=== PATIENT | male | born 1955 | race Caucasian/White ===

== ENCOUNTER 2016-11-06 06:46 | Inpatient (IN) ==
[2016-11-06] MEDS ORDERED: ENOXAPARIN 150 MG/ML INJECTION SQ ONE (07:12)
[2016-11-06] MEDS ORDERED: METHYLPREDNISOLONE SOD SUCC 125mg/2ml INJECTION IVP ONE (07:12)
[2016-11-06] MEDS ORDERED: AZITHROMYCIN IV 500 MG in NS 250ml 250 ML IV ONE (07:12)
--- NOTE | 2016-11-06 07:18 | Emergency Department Report ---
SOB HPI - General Chief Complaint: Shortness of Breath/Dyspnea Stated Complaint: SOA with exertion Time Seen by Provider: 11/06/16 07:09 Source: patient, family, EMS, old records reviewed Mode of arrival: EMS Limitations: no limitations - History of Present Illness 60yo man presented to the ER by EMS for evaluation of dyspnea. Pt has had rapidly progressive, severe emphysema over the last 9 months; pt has frequent exacerbations. Today, pt awoke and was unable to move without severe dyspnea. Pt was given an albuterol tx at the scene with improvement, but could not tolerate walking from the chair to the transport bed. Was given a second neb en route with improvement in his sx. Takes his dulera daily, but does not have albuterol at home. Takes 30mg prednisone daily (10mg tid) and hydrocodone for pain. MD Complaint: shortness of breath Onset (ago): hour(s) Severity: severe Consistency/Duration: constant Relieving factors: oxygen, bronchodilators Exacerbating factors: lying flat, movement Known history of: COPD Treatment prior to arrival: oxygen, bronchodilator - Related Data Home oxygen amount: 3 liters Home Medications Medication Instructions Recorded Confirmed Hydrocodone/APAP 5/325 [[place] 1 - 2 tab PO Q3-6HR PRN 11/06/16 11/06/16 5/325] Mometasone/Formoterol 200/5 2 puff INH BID 11/06/16 11/06/16 [DULERA 200/5mcg INHALER] PredniSONE [Deltasone] 30 mg PO WB 11/06/16 11/06/16 Allergies Allergy/AdvReac Type Severity Reaction Status Date / Time No Known Allergies Allergy Verified 11/06/16 07:34 Review of Systems All systems: reviewed and negative except as stated Respiratory: Reports: as per HPI, dyspnea Integumentary: Reports: other (Allodynia) [facility] Patient Stated Medical History Hypertension Yes Chronic Obstructive Pulmonary Yes Disease (COPD) Gastroesophageal Reflux Yes Disease Shingles Yes Medical History Updates: Emphysema. Severe pain Physical Exam - Limitations Limitations: no limitations - General General appearance: alert, in no apparent distress - Normal Exams: Head:: Normocephalic without trauma Eyes:: Pupils are PERRLA w/ EOMI, No scleral icterus, irritation, or foreign bodies noted ENMT:: No facial trauma, nasal exudates, pharyngeal erythema, or exudates are noted Neck:: Full range of motion, without adenopathy Abdomen:: Bowel sounds positive, soft, non-tender, non-distended, no hepatosplenomegaly, masses or bruits noted Lymphatic:: No lymphadenopathy Musculoskeletal:: No tenderness, or deformity noted Neurological:: Patient is alert, and oriented Psychiatric:: Patient exhibits, appropriate attention - Chest Chest inspection: Present: normal inspection, symmetric chest wall rise. Absent : tenderness, rash - Respiratory Respiratory exam: Present: other (Globally decreased air movement). Absent: normal lung sounds bilaterally, respiratory distress, wheezes, prolonged expiratory phase - Cardiovascular Cardiovascular exam: Present: normal rhythm, tachycardia, normal heart sounds, + S1, +S2. Absent: systolic murmur, diastolic murmur, +S3, +S4 - Skin Skin exam: Present: warm, dry, intact, other (Pts skin is covered in a bluish discoloration; partially removable with alcohol pads). Absent: rash Course Course Narrative: Pt states that he has allodynia 2/2 his daily steroid use. Has not bathed for quite a while. Pts family member states that the bluish discoloration is transfer from his bed sheets. Pt thinks some of it is due to his medications also. Review of a CT chest from 18 months ago shows a 7-8mm RLL pulm nodule, which was suspicious for malignancy. No f/u imaging in pts chart. Awaiting radiologist read of CT-PE. Pts RLL mass appears to have enlarged in the intervening 18months. Has b/l pleural effusions, R>>L. Pt has not left his home for the last 9 months; sees Dr. Ibrahima Arroyo for his pulmonology. Dr. Rangel is his PCM - he has had to make housecalls to see the pt. - Consultations Consultation #1: Hospitalist: Will admit pt. Requests lactate, procal, 1gm rocephin, and 1/2 NS + 20mEq @ 125mL/hr. Time: 09:23 Vital Signs Temperature 98.8 F 11/06/16 06:52 Pulse Rate 116 H 11/06/16 06:52 Respiratory Rate 17 11/06/16 06:52 Blood Pressure 164/101 H 11/06/16 06:52 Pulse Oximetry 94 11/06/16 06:52 Temperature 98.8 F 11/06/16 06:52 Pulse Rate 118 H 11/06/16 09:30 Respiratory Rate 8 L 11/06/16 09:30 Blood Pressure 163/93 H 11/06/16 09:30 Pulse Oximetry 93 11/06/16 09:30 Shortness of Breath/Dyspnea - Differential Diagnosis Likely: acute exacerbation of chronic obstructive airways disease, congestive heart failure, community acquired pneumonia, pulmonary embolism - Medical Records Attestation: I reviewed the patient's medical records. - Lab Data Attestation: I reviewed the patient's lab results. Result diagrams: 11/06/16 07:00 11/06/16 07:00 Lab Results 11/06/16 11/06/16 11/06/16 Range/Units 07:00 07:00 07:00 WBC 13.9 H (4.5-11.0) T/MM3 RBC 3.75 L (4.50-5.90) M/MM3 Hgb 12.1 L (13.5-17.5) GM/DL Hct 37.6 L (41-53) % MCV 100.3 H (80-100) UM3 MCH 32.3 (26-34) UUG MCHC 32.2 (31-37) GM/DL RDW Std Deviation 56.6 H (36.9-50.2) FL Plt Count 232 (130-400) T/MM3 MPV 10.3 (9.4-12.4) UM3 Immature Gran % (Auto) Not performed Neut % (Auto) Not performed Lymph % (Auto) Not performed Harper % (Auto) Not performed Eos % (Auto) Not performed Baso % (Auto) Not performed Neut # Not performed Lymph # Not performed Harper # Not performed Eos # Not performed Baso # Not performed Abs Immat Gran (auto) Not performed Neutrophils % (Manual) 58.0 (33-66) % Band Neutrophils % 3.0 (0-6) % Lymphocytes % (Manual) 27.0 (23-45) % Monocytes % (Manual) 9.0 (0-9.0) % Eosinophils % (Manual) 3.0 (0-4) % Neutrophils # (Manual) 8.1 H (1.8-7.7) T/MM3 Band Neutrophils # 0.4 T/MM3 Lymphocytes # (Manual) 3.8 (1-4.8) T/MM3 Monocytes # (Manual) 1.3 H (0-0.8) T/MM3 Eosinophils # (Manual) 0.4 (0-0.5) T/MM3 RBC Morph Comment Normal D-Dimer 791 H (0-230) NG/ML Turbidity < 20 (0-20) Sodium 150 H (134-144) MEQ/L Potassium 3.1 L (3.6-5) MEQ/L Chloride 103 (98-107) MEQ/L Carbon Dioxide 35 H (22-30) MEQ/L Anion Gap 12 (5-15) MEQ/L BUN 16.0 (9-20) MG/DL Creatinine 0.8 (0.8-1.5) MG/DL GFR Calculation 99 BUN/Creatinine Ratio 20 (6-26) RATIO Glucose 90 (75-110) MG/DL Calculated Osmolality 289 H (261-280) MOSM/KG Calcium 9.4 (8.4-10.2) MG/DL Icterus Index < 2 (0-7) Troponin I 0.067 (0-0.12) ng/ml B-Natriuretic Peptide 9160 H (0-175) pg/mL Specimen Hemolysis < 15 (0-25) - Radiology Data Attestation: I reviewed the patient's radiology results. CT PE: Impression: CT angiogram of the chest for PE: No pulmonary embolus. Right lower lobe consolidation with small bilateral pleural effusions could represent pneumonia, aspiration or potentially a neoplastic process. Close imaging follow-up is recommended. CT angiogram of the chest for aorta: No evidence of aortic dissection, aneurysm or acute aortic syndrome. CT angiogram of the abdomen and pelvis with and without contrast: No evidence of acute aortic syndrome or acute disease process. Numerous thoracic and lumbar compression fractures involving T3-S1. Given the diffuse skeletal abnormalities and multiple subacute rib fractures this raises concern for an infiltrative marrow replacing metastatic process or multiple myeloma. Severe osteoporosis could also cause this. - EKG Data EKG #1 EKG attestation: Yes: I reviewed and interpreted this EKG. EKG shows normal: sinus rhythm, axis, intervals, QRS complexes, ST-T waves Rate: tachycardia Disposition Clinical Impression: Pulmonary nodule Dyspnea Qualifiers: Dyspnea type: unspecified Qualified Code(s): R06.00 - Dyspnea, unspecified Disposition: 02 To [facility] [place] Prescriptions: No Action Mometasone/Formoterol 200/5 [DULERA 200/5mcg INHALER] 2 puff INH BID Hydrocodone/APAP 5/325 [[place] 5/325] 1 - 2 tab PO Q3-6HR PRN PRN Reason: Pain PredniSONE [Deltasone] 30 mg PO WB Referrals: Donavan Rangel MD [Family Provider] - Time of Disposition: 09:38 - Seen By: physician
[2016-11-06] MEDS: SALINE FLUSH 10ml SYRINGE IVF PRN ×3 (07:22→13:54)
[2016-11-06] MEDS: MAGNESIUM SULFATE 1gm PREMIX 1 GM/100 ML BAG IV SCH ×2 (07:31→07:46)
[2016-11-06] MEDS: ALBUTEROL 2.5mg/3ml (0.083%) NEB IH SCH ×3 (07:36→08:17)
--- OUTSIDE RECORDS SUMMARY | 2016-11-06 07:38 | External Medical Summary | Referral Summary ---
:1955 Author Care Team Providers Name Role Phone Donavan Rangel Primary Care Physician Encounter [facility] [id number] Date(s): 07/01/14 - 07/01/14 [facility] [address] [place] [id number] Discharge Diagnosis: Cerumen impaction Discharge Disposition: Home or Self Care Attending Physician: Donavan Rangel MD Admitting Physician: Donavan Rangel MD Vital Signs Most recent to oldest [Reference Range]: 1 Temperature Tympanic [36.6-38.1 degC] 36.7 degC (07/01/14 1:24 PM) Peripheral Pulse Rate [60-100 bpm] 84 bpm (07/01/14 1:24 PM) Respiratory Rate [14-20 br/min] 16 br/min (07/01/14 1:24 PM) Blood Pressure [90-140/60-90 mmHg] 126/78 mmHg (07/01/14 1:24 PM) Problem List Condition Effective Dates Status Health Status Informant Benign essential hypertension Active (disorder)(Confirmed) Tobacco user(Confirmed) Active patient Allergies, Adverse Reactions, Alerts No Known Medication Allergies Medications ProAir HFA 90 mcg/inh inhalation aerosol 2 puffs, Inhalation, QID, # 1 Each, 2 Refill(s), Pharmacy: [facility] Start Date: 10/23/13 Status: OrderedSymbicort 160 mcg-4.5 mcg/inh inhalation aerosol 2 puffs, Inhalation, BID, # 1 Each, 2 Refill(s), Pharmacy: [id number] Start Date: 09/08/13 Status: Ordered Results No data available for this section Immunizations No data available for this section Procedures No data available for this section Social History Social History Type Response Smoking Status Current every day smoker; Type: Cigarettes; Tobacco use per day : Pack Assessment and Plan Extracted from: Title: Ambulatory Patient Education Author: Donavan Rangel MD Date: 07/01 Family Medicine Cerumen Impaction A cerumen impaction is when the wax in your ear forms a plug. This plug usually causes reduced hearing. Sometimes it also causes an earache or dizziness. Removing a cerumen impaction can be difficult an d painful. The wax sticks to the ear canal. The canal is sensitive and bleeds easily. If you try to remove a heavy wax buildup with a cotton tipped swab, you may push it in further. Irrigation with water, suction, and small ear curettes may be used to clear out the wax. If the impaction is fixed to the skin in the ear canal, ear drops may be needed for a few days to loosen the wax. People who build up a lot of wax frequently can use ear wax removal products available in your local drugstore. SEEK MEDICAL CARE IF: You develop an earache, increased hearing loss, or marked dizziness. Document Released: 04/04/2005 Document Revised: 05/19/2012 Document Reviewed: 05/25/2010 [facility] Patient Information 2014 [facility] [employer]. No follow up information was provided. Extracted from: Title: Office Visit Note Author: Donavan Rangel MD Date: 07/01/14 Assessment/Plan Cerumen impaction Wax was removed without difficulty. He tolerated this well. The TM and canal look normal. No further treatment unless further problems or concerns arise Ordered: Office Visit Level 2 Est 12814
--- OUTSIDE RECORDS SUMMARY | 2016-11-06 07:38 | External Medical Summary | Referral Summary ---
:1955 Author Organization [facility] Address [address] [place] [address] [place] [address] Care Team Providers Name Role Phone Donavan Rangel Primary Care Physician Encounter [facility] Date(s): 09/22/14 - 09/22/14 [facility] [address] [place] [address] Discharge Diagnosis: COPD exacerbation Discharge Diagnosis: Acute bronchitis Discharge Disposition: 01-Home or Self Care Attending Physician: Donavan Rangel MD Admitting Physician: Donavan Rangel MD Vital Signs Most recent to oldest [Reference Range]: 1 Temperature Tympanic [36.6-38.1 degC] 36.3 degC *LOW* (09/22/14 2:05 PM) Peripheral Pulse Rate [60-100 bpm] 84 bpm (09/22/14 2:05 PM) Respiratory Rate [14-20 br/min] 28 br/min *HI* (09/22/14 2:05 PM) Blood Pressure [90-140/60-90 mmHg] 118/76 mmHg (09/22/14 2:05 PM) SpO2 97 % (09/22/14 2:05 PM) Problem List Condition Effective Dates Status Health Status Informant COPD (chronic obstructive pulmonary Active disease)(Confirmed) Benign essential hypertension Active (disorder)(Confirmed) Other convulsions(Confirmed) Active Seizure disorder(Confirmed) Active Tobacco user(Confirmed) Active patient Chickenpox(Confirmed) Active Allergies, Adverse Reactions, Alerts No Known Medication Allergies Medications [place] 5 mg-325 mg oral tablet 1 tabs, Oral, q6hr, as needed for pain, # 30 tabs, 0 Refill(s) Start Date: 04/01/15 Status: OrderedpredniSONE 10 mg oral tablet 10 mg 1 tabs, Oral, Daily, 3 tabs daily for 7 days then 2 tabs daily for 7 days.THEN 1 TAB DAILY., #90 tabs, 0 Refill(s), Pharmacy: [id number] , 1 tabs Oral Daily,Instr:3 tabs daily for 7 days then 2 tabs daily for 7 days.THEN 1 TAB DAILY. Start Date: 03/25/15 Status: OrderedProAir HFA 90 mcg/inh inhalation aerosol 2 puffs, Inhalation, QID, as needed for wheezing, # 1 Each, 2 Refill(s), Pharmacy: [id number] Start Date: 03/16/15 Status: OrderedProAir RespiClick 90 mcg/inh inhalation powder 2 puffs, Inhalation, q4hr, # 1 Each, 0 Refill(s), Pharmacy: [facility] Start Date: 02/14/15 Status: OrderedSymbicort 160 mcg-4.5 mcg/inh inhalation aerosol 2 puffs, Inhalation, BID, # 1 Each, 2 Refill(s), Pharmacy: [facility] Start Date: 09/08/13 Status: Ordered Results No data available for this section Immunizations No data available for this section Procedures Procedure Date Related Diagnosis Body Site Colonoscopy 03/11/11 Appendectomy Social History Social History Type Response Smoking Status Current every day smoker; Type: Cigarettes; Tobacco use per day : Pack Assessment and Plan Extracted from: Title: Ambulatory Patient Education Author: Donavan Rangel MD Date: 09/22 Family Medicine Chronic Obstructive Pulmonary Disease Chronic obstructive pulmonary disease (COPD) is a common lung problem. In COPD , the flow of air from the lungs is limited. The way your lungs work will probably never return to normal, but there are thi ngs you can do to improve you lungs and make yourself feel better. HOME CARE Take all medicines as told by your doctor. Only take [id number] or prescription medicines as told by your doctor. Avoid medicines or cough syrups that dry up your airway (such as antihistamines) and do not allow you to get rid of thick spit. You do not need to avoid them if told differently by your doctor. If you smoke, stop. Smoking makes the problem worse. Avoid being around things that make your breathing worse (like smoke, chemicals, and fumes). Use oxygen therapy and therapy to help improve your lungs (pulmonary rehabilitation ) if told by your doctor. If you need home oxygen therapy, ask your doctor if you should buy a tool to measure your oxygen level (oximeter ). Avoid people who have a sickness you can catch (contagious ). Avoid going outside when it is very hot, cold, or humid. Eat healthy foods. Eat smaller meals more often. Rest before meals. Stay active, but remember to also rest. Make sure to get all the shots (vaccines ) your doctor recommends. Ask your doctor if you need a pneumonia shot. Learn and use tips on how to relax. Learn and use tips on how to control your breathing as told by your doctor. Try: Breathing in (inhaling ) through your nose for 1 second. Then, pucker your lips and breath out (exhale ) through your lips for 2 seconds. Putting one hand on your belly (abdomen ). Breathe in slowly through your nose for 1 second. Your hand on your belly should move out. Pucker your lips and breathe out slowly through your lips. You r hand on your belly should move in as you breathe out. Learn and use controlled coughing to clear thick spit from your lungs. 1. Lean your head a little forward. 2. Breathe in deeply. 3. Try to hold your breath for 3 seconds. 4. Keep your mouth slightly open while coughing 2 times. 5. Spit any thick spit out into a tissue. 6. Rest and do the steps again 1 or 2 times as needed. GET HELP IF: You cough up more thick spit than usual. There is a change in the color or thickness of the spit. It is harder to breathe than usual. Your breathing is faster than usual. GET HELP RIGHT AWAY IF: You have shortness of breath while resting. You have shortness of breath that stops you from: Being able to talk. Doing normal activities. You chest hurts for longer than 5 minutes. Your skin color is more blue than usual. Your pulse oximeter shows that you have low oxygen for longer than 5 minutes. MAKE SURE YOU: Understand these instructions. Will watch your condition. Will get help right away if you are not doing well or get worse. Document Released: 08/13/2008 Document Revised: 12/16/2013 Document Reviewed: 10/22/2013 [facility] Patient Information 2014 [facility]. No follow up information was provided. Extracted from: Title: Office Visit Note Author: Donavan Rangel MD Date: 09/22/14 Assessment/Plan Acute bronchitis Not convinced he has an acute active infection but I'm going to go ahead and treat him with doxycycline noted milligrams by mouth twice a day in light of his fairly severe COPD. I f he is not improving he'll let me know. 10 to not return to work until next Saturday. Ordered: Office Visit Level 3 Est 51179 COPD exacerbation [place] additional round of prednisone tapering. Again if not improving he'll let me know. We did discuss his chronic and fairly severe COPD. Discussed the fact that in my medical opinion he would probably qualify for disability based on his COPD. Ordered: Office Visit Level 3 Est 34248 Orders: doxycycline, 100 mg 1 tabs, Oral, BID, X 10 days, # 20 tabs, 0 Refill (s), Pharmacy: [facility], 1 tabs Oral BID,x10 days predniSONE, See Instructions, Take 5 tabs for 2 days, then 4 for 2 days, then 3 for 2 days then 2 for 2 days, then 1 for 2 days, # 30 Each, 0 Refill(s), Pharmacy: [facility], Take 5 tabs f or 2 days, then 4 for 2 days, then 3 for 2 days then 2 for 2 da...
--- OUTSIDE RECORDS SUMMARY | 2016-11-06 07:38 | External Medical Summary | Referral Summary ---
:1955 Author Organization [facility], [facility] Address [address] [place] [address] Care Team Providers Name Role Phone Donavan Rangel Primary Care Physician Encounter [facility] Date(s): 08/05/14 - 08/05/14 [facility] [address] [place] [address] [place] Discharge Diagnosis: Tobacco use Discharge Diagnosis: COPD, severe Discharge Diagnosis: Emphysema lung Discharge Disposition: 01-Home or Self Care Attending Physician: Ibrahima John MD Admitting Physician: Ibrahima John MD Vital Signs Most recent to oldest [Reference Range]: 1 Peripheral Pulse Rate [60-100 bpm] 72 bpm (08/05/14 3:07 PM) Respiratory Rate [14-20 br/min] 20 br/min (08/05/14 3:07 PM) Blood Pressure [90-140/60-90 mmHg] 124/80 mmHg (08/05/14 3:07 PM) SpO2 93 % (08/05/14 3:07 PM) Problem List Condition Effective Dates Status Health Status Informant Benign essential hypertension Active (disorder)(Confirmed) COPD (chronic obstructive pulmonary Active disease)(Confirmed) Other convulsions(Confirmed) Active Seizure disorder(Confirmed) Active Tobacco user(Confirmed) Active patient Chickenpox(Confirmed) Active Allergies, Adverse Reactions, Alerts No Known Medication Allergies Medications predniSONE 10 mg oral tablet See Instructions, Take 2 tablets daily for 7 days, then take 1 tablet daily for 14 days., # 28 tabs,0 Refill(s), Pharmacy: [id number], Take 2 tablets daily for 7 days, then take 1 tablet daily for 14 days. Start Date: 02/14/15 Status: OrderedProAir HFA 90 mcg/inh inhalation aerosol 2 puffs, Inhalation, QID, as needed for wheezing, # 1 Each, 2 Refill(s), [id number] Start Date: 12/06/14 Status: OrderedProAir RespiClick 90 mcg/inh inhalation powder 2 puffs, Inhalation, q4hr, # 1 Each, 0 Refill(s), Pharmacy: [facility] Start Date: 02/14/15 Status: OrderedSymbicort 160 mcg-4.5 mcg/inh inhalation aerosol 2 puffs, Inhalation, BID, # 1 Each, 2 Refill(s), Pharmacy: [facility] Start Date: 09/08/13 Status: Ordered Results No data available for this section Immunizations No data available for this section Procedures Procedure Date Related Diagnosis Body Site Colonoscopy 03/11/11 Appendectomy Social History Social History Type Response Smoking Status Current every day smoker; Type: Cigarettes; Tobacco use per day : Pack Assessment and Plan Extracted from: Title: Office Visit Note Author: Ibrahima John MD Date: 08/05/14 Assessment/Plan 1.COPD, severe 2.Emphysema lung 3.Tobacco use Recommended patient continue his current medications. I spoke with him about the importance of smoking cessation. We discussed pulmonary rehabilitation in which he is very interested. He's to [facility] in the next 7-10 days. I've also given him a form for handicapped placard. Follow-up evaluation is planned for 5 months or sooner if need be.
--- OUTSIDE RECORDS SUMMARY | 2016-11-06 07:38 | External Medical Summary | Referral Summary ---
:1955 Author Organization [facility], [address] [place] [address] Care Team Providers Name Role Phone Donavan Rangel Primary Care Physician Encounter VC Date(s): 10/07/15 - 10/07/15 [facility] [address] [place] [address] Discharge Diagnosis: COPD with emphysema Discharge Diagnosis: Benign essential hypertension (disorder) Discharge Disposition: 01-Home or Self Care Attending Physician: Donavan Rangel MD Admitting Physician: Donavan Rangel MD Vital Signs Most recent to oldest [Reference Range]: 1 Peripheral Pulse Rate [60-100 bpm] 108 bpm *HI* (10/07/15 3:45 PM) Blood Pressure [90-140/60-90 mmHg] 162/98 mmHg *HI* (10/07/15 3:45 PM) SpO2 93 % (10/07/15 3:45 PM) Problem List Condition Effective Dates Status Health Status Informant COPD (chronic obstructive pulmonary Active disease)(Confirmed) Benign essential hypertension Active (disorder)(Confirmed) Other convulsions(Confirmed) Active Seizure disorder(Confirmed) Active Tobacco user(Confirmed) Active patient Chickenpox(Confirmed) Active Allergies, Adverse Reactions, Alerts No Known Medication Allergies Medications [place] 5 mg-325 mg oral tablet 1 tabs, Oral, q6hr, as needed for pain, # 50 tabs, 0 Refill(s) Start Date: 10/03/15 Status: OrderedpredniSONE 10 mg oral tablet 30 mg 3 tabs, Oral, Daily, # 90 tabs, 1 Refill(s), Pharmacy: [id number], 3 tabs Oral Daily Start Date: 10/03/15 Status: OrderedProAir HFA 90 mcg/inh inhalation aerosol 2 puffs, Inhalation, QID, as needed for wheezing, # 1 Each, 2 Refill(s), Pharmacy: [facility] [id number] Start Date: 03/16/15 Status: OrderedSymbicort 160 mcg-4.5 mcg/inh inhalation aerosol 2 puffs, Inhalation, BID, # 1 Each, 2 Refill(s), samples given to patient (Rx) Start Date: 09/08/15 Status: Ordered Results No data available for this section Immunizations No data available for this section Procedures Procedure Date Related Diagnosis Body Site Colonoscopy 03/11/11 Appendectomy Social History Social History Type Response Smoking Status Current every day smoker; Type: Cigarettes; Tobacco use per day : Pack Assessment and Plan Extracted from: Title: Ambulatory Patient Education Author: Donavan Rangel MD Date: 10/06 Emergency Medicine Chronic Obstructive Pulmonary Disease Chronic obstructive pulmonary disease (COPD) is a common lung condition in which airflow from the lungs is limited. COPD is a general term that can be used to describe many different lung problems that limit airflow, including both chronic bronchitis and emphysema. If you have COPD, your lung function will probably never return to normal, but there are measures you can take to improve lung function and make yourself feel better. CAUSES Smoking (common). Exposure to secondhand smoke. Genetic problems. Chronic inflammatory lung diseases or recurrent infections. SYMPTOMS Shortness of breath, especially with physical activity. Deep, persistent (chronic) cough with a large amount of thick mucus. Wheezing. Rapid breaths (tachypnea). Mix or bluish discoloration (cyanosis) of the skin, especially in your fingers, toes, or lips. Fatigue. Weight loss. Frequent infections or episodes when breathing symptoms become much worse (exacerbations). Chest tightness. DIAGNOSIS Your health care provider will take a medical history and perform a physical examination to diagnose COPD. Additional tests for COPD may include: Lung (pulmonary) function tests. Chest X-ray. CT scan. Blood tests. TREATMENT Treatment for COPD may include: Inhaler and nebulizer medicines. These help manage the symptoms of COPD and make your breathing more comfortable. Supplemental oxygen. Supplemental oxygen is only helpful if you have a low oxygen level in your blood. Exercise and physical activity. These are beneficial for nearly all people with COPD. Lung surgery or transplant. Nutrition therapy to gain weight, if you are underweight. Pulmonary rehabilitation. This may involve working with a team of health care providers and specialists, such as respiratory, occupational, and physical therapists. HOME CARE INSTRUCTIONS Take all medicines (inhaled or pills) as directed by your health care provider. Avoid bjht-ehi-iijqwtf medicines or cough syrups that dry up your airway (such as antihistamines) and slow down the elimination of secretions unless instructed otherwise by your health care provider. If you are a smoker, the most important thing that you can do is stop smoking. Continuing to smoke will cause further lung damage and breathing trouble. Ask your health care provider for help wit h quitting smoking. He or she can direct you to community resources or hospitals that provide support. Avoid exposure to irritants such as smoke, chemicals, and fumes that aggravate your breathing. Use oxygen therapy and pulmonary rehabilitation if directed by your health care provider. If you require home oxygen therapy, ask your health care provider whether you should purchase a pulse oximeter to measure your oxygen level at home. Avoid contact with individuals who have a contagious illness. Avoid extreme temperature and humidity changes. Eat healthy foods. Eating smaller, more frequent meals and resting before meals may help you maintain your strength. Stay active, but balance activity with periods of rest. Exercise and physical activity will help you maintain your ability to do things you want to do. Preventing infection and hospitalization is very important when you have COPD. Make sure to receive all the vaccines your health care provider recommends, especially the pneumococcal and influenz a vaccines. Ask your health care provider whether you need a pneumonia vaccine. Learn and use relaxation techniques to manage stress. Learn and use controlled breathing techniques as directed by your health care provider. Controlled breathing techniques include: Pursed lip breathing. Start by breathing in (inhaling) through your nose for 1 second. Then, purse your lips as if you were going to whistle and breathe out (exhale) through the pursed lips for 2 seconds. Diaphragmatic breathing. Start by putting one hand on your abdomen just above your waist. Inhale slowly through your nose. The hand on your abdomen should move out. Then purse your lips and exhal e slowly. You should be able to feel the hand on your abdomen moving in as you exhale. Learn and use controlled coughing to clear mucus from your lungs. Controlled coughing is a series of short, progressive coughs. The steps of controlled coughing are: 1.Lean your head slightly forward. 2.Breathe in deeply using diaphragmatic breathing. 3.Try to hold your breath for 3 seconds. 4.Keep your mouth slightly open while coughing twice. 5.Spit any mucus out into a tissue. 6.Rest and repeat the steps once or twice as needed. SEEK MEDICAL CARE IF: You are coughing up more mucus than usual. There is a change in the color or thickness of your mucus. Your breathing is more labored than usual. Your breathing is faster than usual. SEEK IMMEDIATE MEDICAL CARE IF: You have shortness of breath while you are resting. You have shortness of breath that prevents you from: Being able to talk. Performing your usual physical activities. You have chest pain lasting longer than 5 minutes. Your skin color is more cyanotic than usual. You measure low oxygen saturations for longer than 5 minutes with a pulse oximeter. MAKE SURE YOU: Understand these instructions. Will watch your condition. Will get help right away if you are not doing well or get worse. This information is not intended to replace advice given to you by your health care provider. Make sure you discuss any questions you have with your health care provider. Document Released: 12/05/2005 Document Revised: 03/18/2015 Document Reviewed: 10/22/2013 [facility] Patient Information 2016 [employer]. No follow up information was provided. Extracted from: Title: Office Visit Note Author: Donavan Rangel MD Date: 10/07/15 Assessment/Plan 1.COPD with emphysema, Chronic obstructive pulmonary disease, unspecified No change in current treatment. He did see once less deckhand recently. He tried to cut back on steroids and that was unsuccessful. Disability paperwork is completed copy should be on the chart. Continue routine follow-up. Ordered: Office Visit Level 3 Est 24656 2.Benign essential hypertension (disorder) Blood pressure is high here today continue to monitorand adjust medication as needed. Ordered: Office Visit Level 3 Est 17974
--- OUTSIDE RECORDS SUMMARY | 2016-11-06 07:38 | External Medical Summary | Referral Summary ---
:1955 Author Organization Via [facility] Address [address] [place] [address] Care Team Providers Name Role Phone Donavan Rangel Primary Care Physician Encounter VC Date(s): 10/18/15 - 10/18/15 [facility] [address] [place] [address] Discharge Disposition: 01-Home or Self Care Attending Physician: David Dejesus MD Vital Signs No data available for this section Problem List Condition Effective Dates Status Health Status Informant COPD (chronic obstructive pulmonary Active disease)(Confirmed) Benign essential hypertension Active (disorder)(Confirmed) Other convulsions(Confirmed) Active Seizure disorder(Confirmed) Active Tobacco user(Confirmed) Active patient Chickenpox(Confirmed) Active Allergies, Adverse Reactions, Alerts No Known Medication Allergies Medications [place] 5 mg-325 mg oral tablet 1 tabs, Oral, q6hr, as needed for pain, # 50 tabs, 0 Refill(s) Start Date: 10/13/15 Status: OrderedpredniSONE 10 mg oral tablet 30 mg 3 tabs, Oral, Daily, # 90 tabs, 1 Refill(s), Pharmacy: [facility], 3 tabs Oral Daily Start Date: 10/03/15 Status: OrderedProAir HFA 90 mcg/inh inhalation aerosol 2 puffs, Inhalation, QID, as needed for wheezing, # 1 Each, 2 Refill(s), Pharmacy: [facility] [id number] Start Date: 03/16/15 Status: OrderedSymbicort 160 mcg-4.5 [...] per day : Pack Assessment and Plan No data available for this section
--- OUTSIDE RECORDS SUMMARY | 2016-11-06 07:38 | External Medical Summary | Referral Summary ---
:1955 Author Organization [facility] Address [address] [place] [address] [place] [address] Care Team Providers Name Role Phone Donavan Rangel Primary Care Physician Encounter VC Date(s): 03/18/15 - 03/18/15 [facility] [address] [place] [address] [place] Discharge Diagnosis: Mid back pain Discharge Disposition: 01-Home or Self Care Attending Physician: Donavan Rangel MD Admitting Physician: Donavan Rnagel MD Vital Signs Most recent to oldest [Reference Range]: 1 Temperature Tympanic [36.6-38.1 degC] 37.1 degC (03/18/15 2:28 PM) Peripheral Pulse Rate [60-100 bpm] 88 bpm (03/18/15 2:28 PM) Respiratory Rate [14-20 br/min] 18 br/min (03/18/15 2:28 PM) Blood Pressure [90-140/60-90 mmHg] 142/80 mmHg *HI* (03/18/15 2:28 PM) Problem List Condition Effective Dates Status Health Status Informant COPD (chronic obstructive pulmonary Active disease)(Confirmed) Benign essential hypertension Active (disorder)(Confirmed) Other convulsions(Confirmed) Active Seizure disorder(Confirmed) Active Tobacco user(Confirmed) Active patient Chickenpox(Confirmed) Active Allergies, Adverse Reactions, Alerts No Known Medication Allergies Medications [place] 5 mg-325 mg oral tablet 1 tabs, Oral, q6hr, as needed for pain, # 30 tabs, 0 Refill(s) Start Date: 03/18/15 Status: OrderedpredniSONE 10 mg oral tablet 10 mg 1 tabs, Oral, Daily, 3 tabs daily for 7 days then 2 tabs daily for 7 days , # 35 tabs, 0 Refill(s), Pharmacy: [id number], 1 tabs Oral Daily, Instr:3 tabs daily for 7 days then 2 tabs daily for 7 days Start Date: 03/07/15 Status: OrderedProAir HFA 90 mcg/inh inhalation aerosol 2 puffs, Inhalation, QID, as needed for wheezing, # 1 Each, 2 Refill(s), Pharmacy: [id number] Start Date: 03/16/15 Status: OrderedProAir RespiClick 90 mcg/inh inhalation powder 2 puffs, Inhalation, q4hr, # 1 Each, 0 Refill(s), Pharmacy: [facility] Start Date: 02/14/15 Status: OrderedSymbicort 160 mcg-4.5 mcg/inh inhalation aerosol 2 puffs, Inhalation, BID, # 1 Each, 2 Refill(s), Pharmacy: [facility] Start Date: 09/08/13 Status: Ordered [...] Patient Education Author: Donavan Rangel MD Date: Family Medicine Heat Therapy Heat therapy can help ease sore, stiff, injured, and tight muscles and joints. Heat relaxes your muscles, which may help ease your pain. RISKS AND COMPLICATIONS If you have any of the following conditions, do not use heat therapy unless your health care provider has approved: Poor circulation. Healing wounds or scarred skin in the area being treated. Diabetes, heart disease, or high blood pressure. Not being able to feel (numbness) the area being treated. Unusual swelling of the area being treated. Active infections. Blood clots. Cancer. Inability to communicate pain. This may include young children and people who have problems with their brain function (dementia). . Heat therapy should only be used on old, pre-existing, or long-lasting (chronic ) injuries. Do not use heat therapy on new injuries unless directed by your health care provider. HOW TO USE HEAT THERAPY There are several different kinds of heat therapy, including: Moist heat pack. Warm water bath. Hot water bottle. Electric heating pad. Heated gel pack. Heated wrap. Electric heating pad. Use the heat therapy method suggested by your health care provider. Follow your health care provider's instructions on when and how to use heat therapy. GENERAL HEAT THERAPY RECOMMENDATIONS Do not sleep while using heat therapy. Only use heat therapy while you are awake. Your skin may turn pink while using heat therapy. Do not use heat therapy if your skin turns red. Do not use heat therapy if you have new pain. High heat or long exposure to heat can cause mendez. Be careful when using heat therapy to avoid burning your skin. Do not use heat therapy on areas of your skin that are already irritated, such as with a rash or sunburn. SEEK MEDICAL CARE IF: You have blisters, redness, swelling, or numbness. You have new pain. Your pain is worse. MAKE SURE YOU: Understand these instructions. Will watch your condition. Will get help right away if you are not doing well or get worse. Document Released: 05/19/2012 Document Revised: 07/12/2014 Document Reviewed: 04/20/2014 [facility] Patient Information 2015 [employer]. This information is not intended to replace advice given to you by your health care provider. Make sure you discuss any questions you have with your health care provider. No follow up information was provided. Extracted from: Title: Office Visit Note Author: Donavan Rangel MD Date: 03/18/15 Assessment/Plan Mid back pain Chest x-ray shows lungs fully expanded and no obvious compression fracture. I think this is muscular. I've recommended hydrocodone as needed heat and rest. If symptoms don't impr ove over the next week he'll let me know. Continue his tapering dose of prednisone. Ordered: XR Chest 2 Views Orders: HYDROcodone-acetaminophen, 1 tabs, Oral, q6hr, as needed for pain, # 30 tabs, 0 Refill(s)
--- OUTSIDE RECORDS SUMMARY | 2016-11-06 07:38 | External Medical Summary | Referral Summary ---
:1955 Author Organization [facility] Address [address] [place] [address] Care Team Providers Name Role Phone Donavan Rangel Primary Care Physician Encounter VC Date(s): 02/14/15 - 02/14/15 [facility] [address] [place] [address] [place] Discharge Diagnosis: Emphysema lung Discharge Diagnosis: Tobacco use Discharge Diagnosis: COPD, severe Discharge Disposition: 01-Home or Self Care Attending Physician: Ibrahima John MD Admitting Physician: Ibrahima John MD Vital Signs Most recent to oldest [Reference Range]: 1 Peripheral Pulse Rate [60-100 bpm] 112 bpm *HI* (02/14/15 3:27 PM) Respiratory Rate [14-20 br/min] 24 br/min *HI* (02/14/15 3:27 PM) Blood Pressure [90-140/60-90 mmHg] 122/70 mmHg (02/14/15 3:27 PM) SpO2 92 % (02/14/15 3:27 PM) Problem List Condition Effective Dates Status [...] 14 days., # 28 tabs,0 Refill(s), [id number], Take 2 tablets daily for 7 days, then take 1 tablet daily for 14 days. Start Date: 02/14/15 Status: OrderedProAir HFA 90 mcg/inh inhalation aerosol 2 puffs, Inhalation, QID, as needed for wheezing, # 1 Each, 2 Refill(s), Pharmacy: [facility] Start Date: 12/06/14 Status: OrderedProAir RespiClick 90 mcg/inh inhalation powder 2 puffs, Inhalation, q4hr, # 1 Each, 0 Refill(s), Pharmacy: [facility] 2428 Start Date: 02/14/15 Status: OrderedSymbicort 160 mcg-4.5 mcg/inh inhalation aerosol 2 puffs, Inhalation, BID, # 1 Each, 2 Refill(s), Pharmacy: [facility] [id number] Start Date: 09/08/13 Status: Ordered Results [...] Visit Note Author: Ibrahima John MD Date: 02/14/15 Assessment/Plan 1.COPD, severe 2.Emphysema lung 3.Tobacco use Orders: albuterol, 2 puffs, Inhalation, q4hr, # 1 Each, 0 Refill(s), Pharmacy : [facility] 242 predniSONE, See Instructions, Take 2 tablets daily for 7 days, then take 1 tablet daily for 14 days., # 28 tabs, 0 Refill(s), Pharmacy: [facility] 242, Take 2 tablets daily for 7 days, then take 1 tablet daily for 14 days. I've recommended we addprednisone 20 mg daily for one week then 10 mg daily for 2 weeks. We will speak with the patient by phone later this week to make sure he's improving. He spokeonce again about the importance of smoking cessation. Follow-up visit in 6 months or sooner if need be.
--- OUTSIDE RECORDS SUMMARY | 2016-11-06 07:38 | External Medical Summary | Referral Summary ---
:1955 Author Organization [facility] Address [address] [place] [address] [place] [address] Care Team Providers Name Role Phone Donavan Rangel Primary Care Physician Encounter VC Date(s): 05/11/15 - 05/11/15 [facility] [address] [place] [address] [place] Discharge Diagnosis: Solitary pulmonary nodule Discharge Diagnosis: Chronic obstructive pulmonary disease with acute exacerbation Discharge Disposition: 01-Home or Self Care Attending Physician: Donavan Rangel MD Admitting Physician: Donavan Rangel MD Vital Signs Most recent to oldest [Reference Range]: 1 Temperature Tympanic [36.6-38.1 degC] 37.3 degC (05/11/15 3:09 PM) Peripheral Pulse Rate [60-100 bpm] 100 bpm (05/11/15 3:09 PM) Respiratory Rate [14-20 br/min] 20 br/min (05/11/15 3:09 PM) Blood Pressure [90-140/60-90 mmHg] 126/74 mmHg (05/11/15 3:09 PM) Problem List Condition Effective Dates Status Health Status Informant COPD (chronic obstructive pulmonary Active disease)(Confirmed) Benign essential hypertension Active (disorder)(Confirmed) Other convulsions(Confirmed) Active Seizure disorder(Confirmed) Active Tobacco user(Confirmed) Active patient Chickenpox(Confirmed) Active Allergies, Adverse Reactions, Alerts No Known Medication Allergies Medications [place] 5 mg-325 mg oral tablet 1 tabs, Oral, q6hr, as needed for pain, # 30 tabs, 0 Refill(s) Start Date: 04/01/15 Status: OrderedpredniSONE 10 mg oral tablet See Instructions, Taper dose Take 4 tablets by mouth x 7 days, then 3tablets daily until appt, # 100tabs, 0 Refill(s), Pharmacy: [facility], Taper dose Take 4 tablets by mouth x 7 days, then 3tablets daily until appt Start Date: 04/18/15 Status: OrderedProAir HFA 90 mcg/inh inhalation aerosol 2 puffs, Inhalation, QID, as needed for wheezing, # 1 Each, 2 Refill(s), Pharmacy: [facility] [id number] Start Date: 03/16/15 Status: OrderedProAir RespiClick 90 mcg/inh inhalation powder 2 puffs, Inhalation, q4hr, # 1 Each, 0 Refill(s), Pharmacy: [facility] Start Date: 02/14/15 Status: OrderedSymbicort 160 mcg-4.5 mcg/inh inhalation aerosol 2 puffs, Inhalation, BID, # 1 Each, 2 Refill(s), Pharmacy: [facility] Start Date: 09/08/13 Status: Ordered [...] Visit Note Author: Donavan Rangel MD Date: 05/11/15 Assessment/Plan Chronic obstructive pulmonary disease with (acute) exacerbation, Chronic obstructive pulmonary disease with acute exacerbation Unfortunately with worries that I don't think we can decrease his prednisone be on 30 mg at this time. He'll let me know how things are going over the next few weeks. I've recommended a three-m [facility] follow-up. Continue other medications without change. I think he meets criteria for oxygentherapy but unfortunately he doesn't haveany insurance currently. I told him that I wouldn'ten courage him to apply for disabilitysecondary to his advanced COPD. Ordered: Office Visit Level 3 Est [id number] Solitary pulmonary nodule, Solitary pulmonary nodule I reviewed the CT scan with him and recommended a repeat CT scan in 6 months. He certainly at high risk forany type of surgical intervention or biopsy at this time. Ordered: Office Visit Level 3 Est [id number]
--- OUTSIDE RECORDS SUMMARY | 2016-11-06 07:38 | External Medical Summary | Referral Summary ---
:1955 Author Organization [facility] Address [address] [place] [address] Care Team Providers Name Role Phone Donavan Rangel Primary Care Physician Encounter VC Date(s): 09/21/15 - 09/21/15 [facility], [facility] [address] [place] [address] [place] Discharge Diagnosis: Tobacco use Discharge Diagnosis: Dyspnea Discharge Diagnosis: COPD with emphysema Discharge Disposition: 01-Home or Self Care Attending Physician: Ibrahmia John MD Admitting Physician: Ibrahima John MD Referring Physician: Ibrahima John MD Vital Signs Most recent to oldest [Reference Range]: 1 Peripheral Pulse Rate [60-100 bpm] 112 bpm *HI* (09/21/15 3:49 PM) Respiratory Rate [14-20 br/min] 24 br/min *HI* (09/21/15 3:49 PM) Blood Pressure [90-140/60-90 mmHg] 132/80 mmHg (09/21/15 3:49 PM) SpO2 92 % (09/21/15 3:49 PM) Problem List Condition Effective Dates Status Health Status Informant COPD (chronic obstructive pulmonary Active disease)(Confirmed) Benign essential hypertension Active (disorder)(Confirmed) Other convulsions(Confirmed) Active Seizure disorder(Confirmed) Active Tobacco user(Confirmed) Active patient Chickenpox(Confirmed) Active Allergies, Adverse Reactions, Alerts No Known Medication Allergies Medications [place] 5 mg-325 mg oral tablet 1 tabs, Oral, q6hr, as needed for pain, # 50 tabs, 0 Refill(s) Start Date: 09/16/15 Status: OrderedpredniSONE 10 mg oral tablet See Instructions, Take 5 tabs for 3 days, then 4 for 3 days, then 3 for 3 days then 2 for 3 days, then 1 for 3 days, # 45 tabs, 0 Refill(s), Pharmacy: [facility], Take 5 tabs for 3 days, then 4 for 3 days, then 3 for 3 days then 2 for 3 da... Start Date: 07/22/15 Status: OrderedpredniSONE 10 mg oral tablet 30 mg 3 tabs, Oral, Daily, # 90 tabs, 1 Refill(s), Pharmacy: [facility], 3 tabs Oral Daily Start Date: 07/27/15 Status: OrderedProAir HFA 90 mcg/inh inhalation aerosol 2 puffs, Inhalation, QID, as needed for wheezing, # 1 Each, 2 Refill(s), Pharmacy: [facility] [id number] Start Date: 03/16/15 Status: OrderedProAir RespiClick 90 mcg/inh inhalation powder 2 puffs, Inhalation, q4hr, # 1 Each, 0 Refill(s), Pharmacy: [id number] Start Date: 02/14/15 Status: OrderedSymbicort [...] Visit Note Author: Ibrahima John MD Date: 09/21/15 Assessment/Plan 1.COPD with emphysema 2.Tobacco use 3.Dyspnea I've recommended we try to cut back on his prednisone to 20 mg daily. Again spoke about the importanceof smoking cessation. Follow-up visit is planned in approximately 6 months or sooner if need be.
--- OUTSIDE RECORDS SUMMARY | 2016-11-06 07:38 | External Medical Summary | Referral Summary ---
:1955 Author Organization [facility] Address [address] [place] [address] [place] [address] Care Team Providers Name Role Phone Donavan Rangel Primary Care Physician Encounter VC Date(s): 07/27/15 - 07/27/15 [facility]ER Ybarra [address] [place] [address] Discharge Diagnosis: Shingles rash Discharge Disposition: 01-Home or Self Care Attending Physician: Donavan Rangel MD Vital Signs Most recent to oldest [Reference Range]: 1 Temperature Tympanic [36.6-38.1 degC] 37.0 degC (07/27/15 11:45 AM) Peripheral Pulse Rate [60-100 bpm] 100 bpm (07/27/15 11:45 AM) Respiratory Rate [14-20 br/min] 24 br/min *HI* (07/27/15 11:45 AM) Blood Pressure [90-140/60-90 mmHg] 142/92 mmHg *HI* (07/27/15 11:45 AM) SpO2 94 % (07/27/15 11:45 AM) Problem List Condition Effective Dates Status Health Status Informant COPD (chronic obstructive pulmonary Active disease)(Confirmed) Benign essential hypertension Active (disorder)(Confirmed) Other convulsions(Confirmed) Active Seizure disorder(Confirmed) Active Tobacco user(Confirmed) Active patient Chickenpox(Confirmed) Active Allergies, Adverse Reactions, Alerts No Known Medication Allergies Medications acyclovir 800 mg oral tablet 800 mg 1 tabs, Oral, 5x/Day, X 7 days, # 35 tabs, 0 Refill(s), Pharmacy: [facility], 1 tabs Oral 5x/Day,x7 days Start Date: 07/27/15 Stop Date: 08/03/15 Status: OrderedNorco 5 mg-325 mg oral tablet 1 tabs, Oral, q6hr, as needed for pain, # 50 tabs, 0 Refill(s) Start Date: 07/27/15 Status: OrderedpredniSONE 10 mg oral tablet See Instructions, Take 5 tabs for 3 days, then 4 for 3 days, then 3 for 3 days then 2 for 3 days, then 1 for 3 days, # 45 tabs, 0 Refill(s), Pharmacy: [facility], Take 5 tabs for 3 days, then 4 for 3 days, then 3 for 3 days then 2 for 3 da... Start Date: 07/22/15 Status: OrderedpredniSONE 10 mg oral tablet 30 mg 3 tabs, Oral, Daily, # 90 tabs, 1 Refill(s), Pharmacy: [facility], 3 tabs Oral Daily Start Date: 07/27/15 Status: OrderedProAir HFA 90 mcg/inh inhalation aerosol 2 puffs, Inhalation, QID, as needed for wheezing, # 1 Each, 2 Refill(s), Pharmacy: [facility] Start Date: 03/16/15 Status: OrderedProAir RespiClick 90 mcg/inh inhalation powder 2 puffs, Inhalation, q4hr, # 1 Each, 0 Refill(s), Pharmacy: [facility] Start Date: 02/14/15 Status: OrderedSymbicort 160 mcg-4.5 mcg/inh inhalation aerosol 2 puffs, Inhalation, BID, # 1 Each, 2 Refill(s), Pharmacy: [facility] Start Date: 09/08/13 Status: Ordered Results [...] Visit Note Author: Donavan Rangel MD Date: 07/27/15 Assessment/Plan 1.Shingles rash I recommended starting withacyclovir and 100 mg 5 times daily for the next 7 days. I refilled his hydrocodone he may use it as needed for the pain. Keep the area clean and dr nevarez This may take 3-4 weeks to resolve. He'll continue his other medications without change. Ordered: Office Visit Level 3 Est 78838 Orders: acyclovir, 800 mg 1 tabs, Oral, 5x/Day, X 7 days, # 35 tabs, 0 Refill (s), Pharmacy: [facility], 1 tabs Oral 5x/Day,x7 days HYDROcodone-acetaminophen, 1 tabs, Oral, q6hr, as needed for pain, # 50 tabs , 0 Refill(s) predniSONE, 30 mg 3 tabs, Oral, Daily, # 90 tabs, 1 Refill(s), Pharmacy: [facility], 3 tabs Oral Daily
--- OUTSIDE RECORDS SUMMARY | 2016-11-06 07:38 | External Medical Summary | Referral Summary ---
:1955 Author Organization [facility] ROBER Ybarra, [address] [place] [address] Care Team Providers Name Role Phone Donavan Rangel Primary Care Physician Encounter VC Date(s): 03/07/15 - 03/07/15 [facility]ER Ybarra [address] [place] [address] [place] Discharge Diagnosis: Acute bronchitis Discharge Diagnosis: COPD (chronic obstructive pulmonary disease) Discharge Disposition: 01-Home or Self Care Attending Physician: Donavan Rangel MD Admitting Physician: Donavan Rangel MD Vital Signs Most recent to oldest [Reference Range]: 1 Temperature Tympanic [36.6-38.1 degC] 36.1 degC *LOW* (03/07/15 11:19 AM) Peripheral Pulse Rate [60-100 bpm] 108 bpm *HI* (03/07/15 11:19 AM) Respiratory Rate [14-20 br/min] 20 br/min (03/07/15 11:19 AM) Blood Pressure [90-140/60-90 mmHg] 124/82 mmHg (03/07/15 11:19 AM) SpO2 95 % (03/07/15 11:19 AM) Problem List Condition Effective Dates Status Health Status Informant COPD (chronic obstructive pulmonary Active disease)(Confirmed) Benign essential hypertension Active (disorder)(Confirmed) Other convulsions(Confirmed) Active Seizure disorder(Confirmed) Active Tobacco user(Confirmed) Active patient Chickenpox(Confirmed) Active Allergies, Adverse Reactions, Alerts No Known Medication Allergies Medications Levaquin 500 mg oral tablet 500 mg 1 tabs, Oral, q24hr, X 10 days, # 10 tabs, 0 Refill(s), Pharmacy: [facility], 1 tabs Oral q24hr,x10 days Start Date: 03/07/15 Stop Date: 03/17/15 Status: OrderedpredniSONE 10 mg oral tablet 10 mg 1 tabs, Oral, Daily, 3 tabs daily for 7 days then 2 tabs daily for 7 days , # 35 tabs, 0 Refill(s), Pharmacy: [facility], 1 tabs Oral Daily, Instr:3 tabs daily for 7 days then 2 tabs daily for 7 days Start Date: 03/07/15 Status: OrderedProAir HFA 90 mcg/inh inhalation aerosol 2 puffs, Inhalation, QID, as needed for wheezing, # 1 Each, 2 Refill(s), [id number] Start Date: 12/06/14 Status: OrderedProAir RespiClick 90 mcg/inh inhalation powder 2 puffs, Inhalation, q4hr, # 1 Each, 0 Refill(s), Pharmacy: [facility] Start Date: 02/14/15 Status: OrderedSymbicort 160 mcg-4.5 mcg/inh inhalation aerosol 2 puffs, Inhalation, BID, # 1 Each, 2 Refill(s), Pharmacy: [facility] Start Date: 09/08/13 Status: Ordered [...] Author: Donavan Rangel MD Date: Family Medicine Chronic Obstructive Pulmonary Disease Exacerbation Chronic obstructive pulmonary disease (COPD) is a common lung condition in which airflow from the lungs is limited. COPD is a general term that can be used to describe many different lung problems that limit airflow, including chronic bronchitis and emphysema. COPD exacerbations are episodes when breathing symptoms become much worse and require extra treatment. Without treatment, COPD exacerbations ca n be life threatening, and frequent COPD exacerbations can cause further damage to your lungs. CAUSES Respiratory infections. Exposure to smoke. Exposure to air pollution, chemical fumes, or dust. Sometimes there is no apparent cause or trigger. RISK FACTORS Smoking cigarettes. Older age. Frequent prior COPD exacerbations. SIGNS AND SYMPTOMS Increased coughing. Increased thick spit (sputum) production. Increased wheezing. Increased shortness of breath. Rapid breathing. Chest tightness. DIAGNOSIS Your medical history, a physical exam, and tests will help your health care provider make a diagnosis. Tests may include: A chest X-ray. Basic lab tests. Sputum testing. An arterial blood gas test. TREATMENT Depending on the severity of your COPD exacerbation, you may need to be admitted to a hospital for treatment. Some of the treatments commonly used to treat COPD exacerbations are: Antibiotic medicines. Bronchodilators. These are drugs that expand the air passages. They may be given with an inhaler or nebulizer. Spacer devices may be needed to help improve drug delivery. Corticosteroid medicines. Supplemental oxygen therapy. HOME CARE INSTRUCTIONS Do not smoke. Quitting smoking is very important to prevent COPD from getting worse and exacerbations from happening as often. Avoid exposure to all substances that irritate the airway, especially to tobacco smoke. If you were prescribed an antibiotic medicine, finish it all even if you start to feel better. Take all medicines as directed by your health care provider.It is important to use correct technique with inhaled medicines. Drink enough fluids to keep your urine clear or pale yellow (unless you have a medical condition that requires fluid restriction). Use a cool mist vaporizer. This makes it easier to clear your chest when you cough. If you have a home nebulizer and oxygen, continue to use them as directed. Maintain all necessary vaccinations to prevent infections. Exercise regularly. Eat a healthy diet. Keep all follow-up appointments as directed by your health care provider. SEEK IMMEDIATE MEDICAL CARE IF: You have worsening shortness of breath. You have trouble talking. You have severe chest pain. You have blood in your sputum. You have a fever. You have weakness, vomit repeatedly, or faint. You feel confused. You continue to get worse. MAKE SURE YOU: Understand these instructions. Will watch your condition. Will get help right away if you are not doing well or get worse. Document Released: 12/23/2007 Document Revised: 07/12/2014 Document Reviewed: 10/30/2013 ExitCare Patient Information 2015 [employer]. This information is not intended to replace advice given to you by your health care provider. Make sure you discuss any questions you have with your health care provider. No follow up information was provided. Extracted from: Title: Office Visit Note Author: Donavan Rangel MD Date: 03/07/15 Assessment/Plan Acute bronchitis, Acute bronchitis due to other specified organisms Levaquin 500 mg daily for 10 days. Ordered: Office Visit Level 3 Est 86310 Chronic obstructive pulmonary disease with (acute) exacerbation, COPD ( chronic obstructive pulmonary disease) Resume prednisone at 30 mg a day for 7 days and then 20 mg a dayfor 7 days. I would like to recheck him in 2 weeks. Talked about possibly needing long-termsteroid/prednisonemedication. Ordered: Office Visit Level 3 Est 30270 Orders: levofloxacin, 500 mg 1 tabs, Oral, q24hr, X 10 days, # 10 tabs, 0 Refill(s), Pharmacy: [facility], 1 tabs Oral q24hr,x10 days predniSONE, 10 mg 1 tabs, Oral, Daily, 3 tabs daily for 7 days then 2 tabs daily for 7 days, # 35 tabs, 0 Refill(s), Pharmacy: [facility], 1 tabs Oral Daily,Instr:3 tabs daily for 7 days then 2 tabs daily for 7 days
--- OUTSIDE RECORDS SUMMARY | 2016-11-06 07:38 | External Medical Summary | Referral Summary ---
:1955 Author [facility] Address [address] [place] [address] [place] [address] Care Team Providers Name Role Phone Donavan Rangel Primary Care Physician Encounter VC Date(s): 08/25/14 - 08/25/14 [facility] ROBER Ybarra [address] [place] [address] [place] Discharge Diagnosis: Acute bronchitis Discharge Diagnosis: COPD exacerbation Discharge Disposition: 01-Home or Self Care Attending Physician: Donavan Rangel MD Admitting Physician: Donavan Rangel MD Vital Signs Most recent to oldest [Reference Range]: 1 Temperature Tympanic [36.6-38.1 degC] 37.0 degC (08/25/14 2:52 PM) Peripheral Pulse Rate [60-100 bpm] 84 bpm (08/25/14 2:52 PM) Respiratory Rate [14-20 br/min] 24 br/min *HI* (08/25/14 2:52 PM) Blood Pressure [90-140/60-90 mmHg] 112/80 mmHg (08/25/14 2:52 PM) Problem List Condition Effective Dates Status [...] 14 days., # 28 tabs,0 Refill(s), Pharmacy: [id number], Take 2 tablets daily for 7 days, then take 1 tablet daily for 14 days. Start Date: 02/14/15 Status: OrderedProAir HFA 90 mcg/inh inhalation aerosol 2 puffs, Inhalation, QID, as needed for wheezing, # 1 Each, 2 Refill(s), Pharmacy: [id number] Start Date: 12/06/14 Status: OrderedProAir RespiClick 90 mcg/inh inhalation powder 2 puffs, Inhalation, q4hr, # 1 Each, 0 Refill(s), Pharmacy: [facility]28 Start Date: 02/14/15 Status: OrderedSymbicort 160 mcg-4.5 mcg/inh inhalation aerosol 2 puffs, Inhalation, BID, # 1 Each, 2 Refill(s), Pharmacy: [facility] Start Date: 09/08/13 Status: Ordered Results No data available for this section Immunizations No data available for this section Procedures Procedure Date Related Diagnosis Body Site Colonoscopy 03/11/11 Appendectomy Social History Social History Type Response Smoking Status Current every day smoker; Type: Cigarettes; Tobacco use per day : Pack Assessment and Plan Extracted from: Title: Ambulatory Patient Education Author: Donavan Rangel MD Date: 08/25 Family Medicine Chronic Obstructive Pulmonary Disease Exacerbation [...] AND SYMPTOMS Increased coughing. Increased thick spit (sputum ) production. Increased wheezing. Increased shortness of breath. [...] the airway, especially to tobacco smoke. If prescribed, take your antibiotics as directed. Finish them even if you start to feel better. Only take [id number] or prescription medicines as directed by your health care [...] get worse. Document Released: 12/23/2007 Document Revised: 12/16/2013 Document Reviewed: 10/30/2013 ExitCare Patient Information 2014 [employer]. No follow up information was provided. Extracted from: Title: Office Visit Note Author: Donavan Rangel MD Date: 08/25/14 Assessment/Plan Acute bronchitis Levaquin 500 mg daily 10 days. If symptoms persist or worsen or further problems develop follow-up. Ordered: Office Visit Level 3 Est 01290 COPD exacerbation prednisone taper as listed below. Continue other medications without change. No tobacco work next Saturday if not improving follow-up. Ordered: Office Visit Level 3 Est 87019 Orders: levofloxacin, 500 mg 1 tabs, Oral, q24hr, X 10 days, # 10 tabs, 0 Refill(s), [facility], 1 tabs Oral q24hr,x10 days predniSONE, See Instructions, Take 4 tablets for 2 days, then 3 for 2 days then 2 for 2 days, then 1 for 2 days, # 20 Each, 0 Refill(s), Pharmacy: [facility], Take 4 tablets for 2 days, th en 3 for 2 days then 2 for 2 days, then 1 for 2 days
--- OUTSIDE RECORDS SUMMARY | 2016-11-06 07:38 | External Medical Summary | Referral Summary ---
:1955 Author Organization [facility] Address [address] [place] [address] [place] [address] Care Team Providers Name Role Phone Donavan Rangel Primary Care Physician Encounter VC Date(s): 01/26/15 - 01/26/15 [facility] ROBER Ybarra [address] [place] [address] [place] Discharge Diagnosis: Acute bronchitis Discharge Diagnosis: COPD exacerbation Discharge Disposition: 01-Home or Self Care Attending Physician: Donavan Rangel MD Admitting Physician: Donavan Rangel MD Vital Signs Most recent to oldest [Reference Range]: 1 Temperature Tympanic [36.6-38.1 degC] 36.8 degC (01/26/15 8:22 AM) Peripheral Pulse Rate [60-100 bpm] 92 bpm (01/26/15 8:22 AM) Respiratory Rate [14-20 br/min] 20 br/min (01/26/15 8:22 AM) Blood Pressure [90-140/60-90 mmHg] 128/80 mmHg (01/26/15 8:22 AM) Problem List Condition Effective Dates Status Health Status Informant Benign essential hypertension Active (disorder)(Confirmed) COPD (chronic obstructive pulmonary Active disease)(Confirmed) Other convulsions(Confirmed) Active Seizure disorder(Confirmed) Active Tobacco user(Confirmed) Active patient Chickenpox(Confirmed) Active Allergies, Adverse Reactions, Alerts No Known Medication Allergies Medications Dulera 200 mcg-5 mcg/inh inhalation aerosol 2 puffs, Inhalation, BID, 2 samples given, # 2 Each, 0 Refill(s), samples given to patient (Rx) Start Date: 09/29/14 Status: OrderedLevaquin 500 mg oral tablet 500 mg 1 tabs, Oral, q24hr, X 10 days, # 10 tabs, 0 Refill(s), Pharmacy: [facility], 1 tabs Oral q24hr,x10 days Start Date: 01/26/15 Stop Date: 02/05/15 Status: OrderedpredniSONE 10 mg oral tablet See Instructions, Take 5 tabs for 3 days, then 4 for 3 days, then 3 for 3 days then 2 for 3 days, then 1 for 3 days, # 45 tabs, 0 Refill(s), Pharmacy: [facility], Take 5 tabs for 3 days, then 4 for 3 days, then 3 for 3 days then 2 for 3 da... Start Date: 01/26/15 Status: OrderedProAir HFA 90 mcg/inh inhalation aerosol 2 puffs, Inhalation, QID, as needed for wheezing, # 1 Each, 2 Refill(s), Pharmacy: [id number] Start Date: 12/06/14 Status: OrderedSymbicort 160 mcg-4.5 mcg/inh inhalation aerosol 2 puffs, Inhalation, BID, # 1 Each, 2 Refill(s), Pharmacy: [facility] 2428 Start Date: 09/08/13 Status: Ordered Results [...] of air from the lungs is limited. COPD exacerbations are times that breathing gets worse and you need extra treat ment. Without treatment they can be life threatening. If they happen often, your lungs can become more damaged. HOME CARE Do not smoke. Avoid tobacco smoke and other things that bother your lungs. If given, take your antibiotic medicine as told. Finish the medicine even if you start to feel better. Only take medicines as told by your doctor. Drink enough fluids to keep your pee (urine) clear or pale yellow (unless your doctor has told you not to). Use a cool mist machine (vaporizer). If you use oxygen or a machine that turns liquid medicine into a mist ( nebulizer), continue to use them as told. Keep up with shots (vaccinations) as told by your doctor. Exercise regularly. Eat healthy foods. Keep all doctor visits as told. GET HELP RIGHT AWAY IF: You are very short of breath and it gets worse. You have trouble talking. You have bad chest pain. You have blood in your spit (sputum). You have a fever. You keep throwing up (vomiting). You feel weak, or you pass out (faint). You feel confused. You keep getting worse. MAKE SURE YOU: Understand these instructions. Will watch your condition. Will get help right away if you are not doing well or get worse. Document Released: 02/14/2012 Document Revised: 12/16/2013 Document Reviewed: 10/30/2013 [facility] Patient Information 2015 [employer]. This information is not intended to replace advice given to you by your health care provider. Make sure you discuss any questions you have with your health care provider. No follow up information was provided. Extracted from: Title: Office Visit Note Author: Donavan Rangel MD Date: 01/26/15 Assessment/Plan Acute bronchitis Levaquin 500 mg daily 10 days. Ordered: Office Visit Level 3 Est 59172 COPD exacerbation Prednisone taper. Xin give him a longer taper than last time and see if that won't help. I think most of his symptoms are related to an exacerbation of COPD and hopefully this will help. Ordered: Office Visit Level 3 Est 16307 Orders: levofloxacin, 500 mg 1 tabs, Oral, q24hr, X 10 days, # 10 tabs, 0 Refill(s), Pharmacy: [facility], 1 tabs Oral q24hr,x10 days predniSONE, See Instructions, Take 5 tabs for 3 days, then 4 for 3 days, then 3 for 3 days then 2 for 3 days, then 1 for 3 days, # 45 tabs, 0 Refill(s), Pharmacy: [facility], Take 5 tabs f or 3 days, then 4 for 3 days, then 3 for 3 days then 2 for 3 da...
--- OUTSIDE RECORDS SUMMARY | 2016-11-06 07:39 | External Medical Summary | Referral Summary ---
:1955 Author Organization Via ROBER Ybarra, [address] [place] [address] Care Team Providers Name Role Phone Donavan Rangel Primary Care Physician Encounter VC Date(s): 01/13/15 - 01/13/15 [facility] Ybarra [address] [place] [address] [place] Discharge Diagnosis: Acute bacterial bronchitis Discharge Diagnosis: COPD exacerbation Discharge Disposition: 01-Home or Self Care Attending Physician: Donavan Rangel MD Admitting Physician: Donavan Rangel MD Vital Signs Most recent to oldest [Reference Range]: 1 Temperature Tympanic [36.6-38.1 degC] 37.1 degC (01/13/15 2:59 PM) Peripheral Pulse Rate [60-100 bpm] 96 bpm (01/13/15 2:59 PM) Respiratory Rate [14-20 br/min] 22 br/min *HI* (01/13/15 2:59 PM) Blood Pressure [90-140/60-90 mmHg] 134/100 mmHg (01/13/15 2:59 PM) Problem List Condition Effective Dates Status [...] days, # 10 tabs, 0 Refill(s), Pharmacy: [facility], 1 tabs Oral q24hr,x10 days Start Date: 01/13/15 Stop Date: 01/23/15 Status: OrderedpredniSONE 10 mg oral tablet See Instructions, Take 5 tabs for 2 days, then 4 for 2 days, then 3 for 2 days then 2 for 2 days, then 1 for 2 days, # 30 Each, 0 Refill(s), Pharmacy: [facility], Take 5 tabs for 2 days, then 4 for 2 days, then 3 for 2 days then 2 for 2 da... Start Date: 01/13/15 Status: OrderedProAir HFA 90 mcg/inh inhalation aerosol 2 puffs, Inhalation, QID, as needed for wheezing, # 1 Each, 2 Refill(s), [id number] Start Date: 12/06/14 Status: OrderedSymbicort 160 mcg-4.5 mcg/inh inhalation aerosol 2 puffs, Inhalation, BID, # 1 Each, 2 Refill(s), Pharmacy: [facility] Start Date: 09/08/13 Status: Ordered [...] Patient Education Author: Donavan Rangel MD Date: 01/13 Family Medicine Chronic Obstructive Pulmonary Disease Chronic obstructive pulmonary disease (COPD) is a common lung problem. In COPD , the flow of air from the lungs is limited. The way your lungs work will probably never return to normal, but there are thi ngs you can do to improve your lungs and make yourself feel better. HOME CARE Take all medicines as told by your doctor. Avoid [...] therapy to help improve your lungs (pulmonary rehabilitation) if told by your doctor. If you need home oxygen therapy, ask your doctor if you should buy a tool to measure your oxygen level (oximeter). Avoid people who have a sickness you can catch (contagious). Avoid going outside when it is very hot, cold, or humid. Eat healthy foods. Eat smaller meals more often. Rest before meals. Stay active, but remember to also rest. Make sure to get all the shots (vaccines) your doctor recommends. Ask your doctor if you need a pneumonia shot. Learn and use tips on how to relax. Learn and use tips on how to control your breathing as told by your doctor. Try: Breathing in (inhaling) through your nose for 1 second. Then, pucker your lips and breath out (exhale) through your lips for 2 seconds. Putting one hand on your belly (abdomen). Breathe in slowly through your nose for 1 second. Your hand on your belly should move out. Pucker your lips and breathe out slowly through your lips. Your hand on your belly should move in as you breathe out. Learn and use controlled coughing to clear thick spit from your lungs. The steps are: 1. Lean your head a little forward. [...] get worse. Document Released: 08/13/2008 Document Revised: 07/12/2014 Document Reviewed: 10/22/2013 [facility] Patient Information 2015 [facility], [facility]. This information is not intended to replace advice given to you by your health care provider. Make sure you discuss any questions you have with your health care provider. No follow up information was provided. Extracted from: Title: Office Visit Note Author: Donavan Rangel MD Date: 01/13/15 Assessment/Plan Acute bacterial bronchitis I've recommended Levaquin 500 mg daily for 10 days. Ordered: Office Visit Level 3 Est 52853 COPD exacerbation Continue current medications and add prednisone as listed below. If not improving or further problems develop follow-up. Ordered: Office Visit Level 3 Est 55563 Orders: levofloxacin, 500 mg 1 tabs, Oral, q24hr, X 10 days, # 10 tabs, 0 Refill(s), Pharmacy: [facility], 1 tabs Oral q24hr,x10 days predniSONE, See Instructions, Take 5 tabs for 2 days, then 4 for 2 days, then 3 for 2 days then 2 for 2 days, then 1 for 2 days, # 30 Each, 0 Refill(s), Pharmacy: [facility], Take 5 tabs f or 2 days, then 4 for 2 days, then 3 for 2 days then 2 for 2 da...
--- OUTSIDE RECORDS SUMMARY | 2016-11-06 07:39 | External Medical Summary | Continuity of Care Document ---
:1955 Author Organization [facility] Allergies Active Description Code Type Severity Reaction Onset Reported/ Identified Relationship Clinical to Patient Status Yes No Known NKMA N/A N/A 09/08/2013 Medication Allergies Medications Problems Date Dx Attending Type Code Diagnosis Diagnosed By Coded 07/27/2015 Juan Carlos, Final B02.9 Zoster without Donavan K complications 09/21/2015 Ibrahima John Final J43.9 Emphysema, unspecified 09/21/2015 Ibrahima John Final R06.00 Dyspnea, unspecified 09/21/2015 Ibrahima John Final Z72.0 Tobacco use 10/07/2015 Juan Carlos, Final I10 Essential (primary) Donavan K hypertension 10/07/2015 Juan Carlos, Final J43.9 Emphysema, Donavan K unspecified 10/07/2015 Juan Carlos, Final J44.9 Chronic obstructive Donavan K pulmonary disease, unspecified 10/23/2016 Juan Carlos, Final I10 Essential (primary) Donavan K hypertension 10/23/2016 Juan Carlos, Final J44.1 Chronic obstructive Donavan K pulmonary disease with (acute) exacerbation 10/23/2016 Juan Carlos, Final J96.11 Chronic respiratory Donavan K failure with hypoxia Procedures Code Description Performed By Performed On 09/21/2015 46770 Office or other outpatient visit for the evaluation and management of an established patient, which requires at least 2 of these 3 kanh components: A detailed history; A detailed examination; Medical d 10/07/2015 66378 Office or other outpatient visit for the evaluation and management of an established patient, which requires at least 2 of these 3 kahn components: An expanded problem focused history; An expanded prob Home 10/30/2016 [id number] visit for the evaluation and management of an established patient, which requires at least 2 of these 3 kahn components: An expanded problem focused interval history; An expanded problem focused e Results Encounters ACCT No. Visit Discharge Status Pt. Type Provider Facility Loc./Unit Complaint Date/Time [id number] 06/04/2013 06/04/2013 CLS Outpatien 15:39:00 23:59:59 t [id number] 10/30/2016 10/30/2016 DIS Outpatien Juan Carlos, [facility] med check 429 08:37:00 23:59:00 t [facility] [id number] 10/07/2015 10/07/2015 DIS Outpatien Juan Carlos, [facility] fill out 664 15:41:00 23:59:00 t [facility] paperwork [id number] 09/21/2015 09/21/2015 DIS Outpatien [place], [facility] Mur 6 MO 621 15:40:00 23:59:00 t Ibrahima [facility] Pulm RCK/COPD/EMP Clinic HYSEMA [id number] 07/27/2015 07/27/2015 DIS Outpatien Juan Carlos, [facility] broken out 562 11:31:00 23:59:00 thomas [facility] with rash on Clinic chest and back [id number] 05/11/2015 05/11/2015 DIS Outpatien Juan Carlos, [facility] 3 week 255 14:43:00 23:59:00 t Donavan [facility] recheck Clinic [id number] 03/18/2015 03/18/2015 CLS Outpatien Juan Carlos, [facility] BACK PAIN 686 14:21:00 23:59:59 t [facility] [id number] 03/07/2015 03/07/2015 DIS Outpatien Juan Carlos, [facility] cough 196 11:15:00 23:59:00 t Donavan [facility] congestion Clinic [id number] 02/14/2015 02/14/2015 DIS Outpatien [place]el, [facility] Mur 5 MO RCK 370 15:12:00 23:59:00 thomas [facility] Pulm Clinic [id number] 01/26/2015 01/26/2015 DIS Outpatien Juan Carlos, [facility] RCK 563 08:09:00 23:59:00 t Donavan [facility] BRONCHITIS; Clinic NO IMPROVEMENT [id number] 01/13/2015 01/13/2015 DIS Outpatien Juan Carlos, [facility] cough 099 14:49:00 23:59:00 t Donavan [facility] congestion Clinic [id number] 09/22/2014 09/22/2014 DIS Outpatien Juan Carlos, [facility] ck 867 13:56:00 23:59:00 t Donavan [facility] bronchitis Clinic [id number] 03/01/2014 03/01/2014 DIS Outpatien [place], [facility] Mur 4 MO RCK 678 15:58:00 23:59:00 t Ibrahima [facility] Pulm Clinic [id number] 08/25/2014 Document 495 14:48:00 Registrat ion [id number] 08/05/2014 Document 427 14:54:00 Registrat ion [id number] 07/01/2014 Document 156 13:19:00 Registrat ion
[2016-11-06] MEDS ORDERED: FUROSEMIDE 40 MG/4 ML INJECTION IVP ONE (07:51)
[2016-11-06] MEDS ORDERED: NS 100 ML ONE (07:59)
[2016-11-06] MEDS ORDERED: IOHEXOL 350mg/ml 50ml INJECTION ONE (07:59)
[2016-11-06] MEDS ORDERED: SALINE FLUSH 10ml SYRINGE ONE (07:59)
[2016-11-06] MEDS ORDERED: IOHEXOL 350mg/ml 75ml INJECTION ONE (07:59)
--- NOTE | 2016-11-06 09:18 | CT Scan Report ---
Indication: Acute dyspnea with elevated ddimer PROCEDURE: CT angio pulm emb/aorta chest: Encounter: Initial Technique: Axial CT angiography in the systemic arterial phase was performed through the chest, abdomen and pelvis with contrast. Noncontrast axial CT imaging through the chest, abdomen and pelvis was also performed. Coronal and sagittal MIP reconstructed images were created and reviewed. Three-dimensional surface shaded volume rendered imaging of the aorta and arterial vasculature was created by the technologist on a dedicated workstation under the direction of the interpreting radiologist and reviewed. Axial CT angiography through the chest was also performed in the pulmonary arterial phase with coronal and sagittal MIP reconstructed images created and reviewed. Automated Exposure Control and Iterative Reconstruction dose reducing techniques were utilized. Contrast: 120mL Omnipaque 350 Comparison: Chest CT dated April 11, 2015 Findings: CT angiogram of the chest for PE: Pulmonary arteries: Exam is diagnostic to the subsegmental pulmonary arterial level. No filling defects identified to confirm a pulmonary embolus. Other findings: Severe emphysema. New small bilateral pleural effusions, right greater than left. There is also some consolidation present in the right lower lobe. Respiratory motion artifact. No pneumothorax. The previously seen right lower lobe pulmonary nodule is obscured by the effusion. The central airways are grossly patent. No axillary or mediastinal adenopathy. Heart size is normal. Trace pericardial effusion. CT angiogram of the chest for aorta: Noncontrast imaging shows no evidence of adrenal hematoma. Postcontrast imaging shows no evidence of aortic dissection or aneurysm. No significant atherosclerotic plaque for age. Great vessel origins appear normal. Please see the above report for additional findings in the chest. CT angiogram of the abdomen and pelvis with and without contrast: No evidence of abdominal aortic aneurysm or dissection. Minimal scattered atherosclerotic plaque. Renal arteries origins are widely patent. Celiac, SMA and NAZ are patent. The liver is grossly normal. The gallbladder, spleen, pancreas and adrenal glands are within normal limits. Bilateral renal cysts. No renal masses. No abdominal or pelvic lymphadenopathy. The visualized bladder is unremarkable. The visualized small and large bowel loops are within normal limits. Bone windows show degenerative change in the spine. There are multiple new compression fractures throughout the thoracic and lumbar spine involving essentially every vertebra to varying degrees between T3 and S1. Most of these are [id number]. On the prior scan fractures were noted at T6 and T7. Multiple subacute healing right rib fractures. Impression: CT angiogram of the chest for PE: No pulmonary embolus. Right lower lobe consolidation with small bilateral pleural effusions could represent pneumonia, aspiration or potentially a neoplastic process. Close imaging follow-up is recommended. CT angiogram of the chest for aorta: No evidence of aortic dissection, aneurysm or acute aortic syndrome. CT angiogram of the abdomen and pelvis with and without contrast: No evidence of acute aortic syndrome or acute disease process. Numerous thoracic and lumbar compression fractures involving T3-S1. Given the diffuse skeletal abnormalities and multiple subacute rib fractures this raises concern for an infiltrative marrow replacing metastatic process or multiple myeloma. Severe osteoporosis could also cause this. .
[2016-11-06] MEDS ORDERED: CEFTRIAXONE 1 G in NS 100 ML IV ONE (09:35)
[2016-11-06] MEDS: 1/2 NS with KCL 20mEq 1,000 ML IV SCH ×2 (10:02→19:29)
--- NOTE | 2016-11-06 10:30 | History & Physical Report ---
<Damari Perrin - Last Filed: 11/06/16 10:59> History of Present Illness Date: 11/06/16 Chief complaint: shortness of breath, weakness HPI: Patient is a 60-year-old white male patient of Dr. Rangel. He was brought into the ED by EMS due to significant shortness of breath and weakness. Patient has chronic lung disease and is on 3 L of oxygen chronically. Patient states this morning when trying to go to the bathroom, he was so short of air, he " just couldn't breathe." He is so weak he can barely ambulate from his bed to the chair. He takes Dulera or Symbicort routinely and 30 mg of prednisone daily for his "emphysema." His flatware maker is Dr. Ibrahima Menjivar. He hasn't seen him for over a year. He has been homebound for the last 9 months due to breathing limitation. Dr. Rangel made a house call last week to visit him, but prior to that, had not seen him for quite some time. He has been on disability for the past year due to his lung condition. In the emergency room he had labs/sepsis work-up and CTA chest. See results below. He received albuterol nebulizer treatments 3, azithromycin 500 mg IV, Rocephin 1 g IV, Lovenox 70 mg subcutaneous, Lasix 40 mg IV, magnesium sulfate 1 g IV, and methylprednisolone 125 mg IV. Patient was interviewed and examined in the emergency room, with his present. We discussed his CODE STATUS. He does not want CPR performed, but given his current respiratory condition, would be willing to have a ventilator short term if necessary. He would also like to use the local flatware maker if needed. We also discussed his findings on CT. He was found to have multiple rib fractures and compression fractures. He states a week ago he had severe rib pain. He states he was straining to have a bowel movement and he felt something "pop" in his ribs. He had severe low back pain approximately 5-6 months ago when he was trying to orange picker something heavy. He denies any history of significant trauma such as a fall or an MVA. He takes [place] up to 4 times a day for postherpetic neuralgia and back and rib pain. Review of Systems Comprehensive ROS: completed and no additional positive findings except those as stated - Constitutional Constitutional: Present: weakness - EENMT Eyes: Present: blurry vision Mouth/Throat: Present: sore throat, dry mouth - Cardiovascular Cardiovascular: Present: dyspnea on exertion, orthopnea, edema (this is relatively new) - Respiratory Respiratory: Present: cough, dyspnea, dyspnea on exertion, chest congestion - Gastrointestinal Gastrointestinal: Present: constipation (recent. This is better with routine use of MiraLAX) - Musculoskeletal Musculoskeletal: Present: muscle weakness - Integumentary/Breasts Integumentary: Present: other (blue discoloration to chest, easy bruising) - Neurological Neurological Comments: Postherpetic neuralgia - Hematologic/Lymphatic Hematologic/Lymphatic: Present: easy bruising PFSH Past medical history "Emphysema" Chronic back pain Postherpetic neuralgia Hypertension Former ksukcp-[id number]-[id number]-year history Surgical History: Appendectomy at age 18 Family History: Father at age 75-coronary artery disease Mother is still living with no known health problems Brother-recently of "the same symptoms I'm having right now" - likely respiratory failure - Social History Smoking status: Former smoker Packs-years: 40 Quit date: 01/10/16 Substance use type: does not use Alcohol intake frequency: does not drink Household members: spouse, children (22 y.o. son) Current occupational status: disabled (x 1 year due emphysema) Previous occupational history: previously worked at [employer] for over 30 years Social history: Has been home bound for the past 9 mos. PCP-Dr. Rangel Pulrosaura - Dr. Menjivar (Pt prefers to see local flatware maker if possible.) Medications Home Medications Medication Instructions Recorded Confirmed Type Hydrocodone/APAP 5/325 [[place] 1 - 2 tab PO Q3-6HR PRN 11/06/16 11/06/16 History 5/325] Mometasone/Formoterol 200/5 2 puff INH BID 11/06/16 11/06/16 History [DULERA 200/5mcg INHALER] PredniSONE [Deltasone] 30 mg PO WB 11/06/16 11/06/16 History Allergies Allergy/AdvReac Type Severity Reaction Status Date / Time No Known Allergies Allergy Verified 11/06/16 07:34 Exam Vital Signs: Temperature 98.8 F 11/06/16 06:52 Pulse Rate 118 H 11/06/16 09:30 Respiratory Rate 8 L 11/06/16 09:30 Blood Pressure 163/93 H 11/06/16 09:30 Pulse Oximetry 93 11/06/16 09:30 3L NC - Constitutional Present: mild distress, well nourished, well developed, obese, disheveled - Routine HEENT Exam Head: Present: normocephalic, atraumatic, cushingoid faces Eye: Present: EOMI, PERRL, cataracts ENT: Present: mucous membranes dry, dentition normal (dentures). Absent: oropharynx clear (thrush - tongue and soft palate) - Routine Neck Exam Present: supple, full ROM. Absent: lymphadenopathy - Routine Respiratory Exam Present: accessory muscle use, dyspnea, distant breath sounds, diminished air movement (difficult to eval given his current respiratory condition). Absent: wheezes - Routine Cardiovascular Exam Present: RRR, S1, S2, tachycardia (sounds are very diminished). Absent: murmur - Routine Abdominal Exam Present: soft, normoactive bowel sounds, non distended. Absent: tenderness - Routine Extremities Exam Present: edema (2-3 + pedal b/l), normal capillary refill - Routine Skin Exam Present: dry (dry, flaking skin), warm, rash (bluish discoloration to chest and abdomen ( thinks it is a combo of lack of bathing, blue sheets and ink from crossword puzzles.)), ecchymosis (diffuse bruising to arms/hands. Vasculititis appearing rash on L wrist). Absent: normal turgor - Routine Neurological Exam Present: alert, oriented X3, moving all extremities, hearing grossly intact, tremors (intentional). Absent: pronator drift generalized weakness - Routine Psychiatric Exam Present: normal affect, normal thought process, cooperative, anxious Results - Labs CBC & Chem 7: 11/06/16 07:00 11/06/16 07:00 Labs: Laboratory Tests 11/06/16 11/06/16 11/06/16 07:00 07:00 07:48 D-Dimer 791 H Troponin I 0.067 B-Natriuretic Peptide 9160 H Plasma Lactate 1.7 Procalcitonin 11/06/16 07:48 D-Dimer Troponin I B-Natriuretic Peptide Plasma Lactate Procalcitonin 0.05 - Imaging and Cardiology CT scan - chest Additional comments: Type of Exam(s): CT angio pulm emb/aorta chest Impression: CT angiogram of the chest for PE: No pulmonary embolus. Right lower lobe consolidation with small bilateral pleural effusions could represent pneumonia, aspiration or potentially a neoplastic process. Close imaging follow-up is recommended. CT angiogram of the chest for aorta: No evidence of aortic dissection, aneurysm or acute aortic syndrome. CT angiogram of the abdomen and pelvis with and without contrast: No evidence of acute aortic syndrome or acute disease process. Numerous thoracic and lumbar compression fractures involving T3-S1. Given the diffuse skeletal abnormalities and multiple subacute rib fractures this raises concern for an infiltrative marrow replacing metastatic process or multiple myeloma. Severe osteoporosis could also cause this. Assessment and Plan (1) Respiratory failure Current visit: Yes Status: Acute (2) Pneumonia Current visit: Yes Status: Acute DVT Prophylaxis: SCD's Resuscitation Status: Limited Code (patient willing to have ventilator, does not want CPR) Assessment and Plan: Assessment acute on chronic respiratory failure COPD - acute exacerbation Community acquired pneumonia Multiple subacute rib and thoracic/lumbar vertebral compression fractures Postherpetic neuralgia presumed osteoporosis chronic steroid use HTN Plan Admit to inpatient status to the hospitalist team with Dr. Smalls attending Given patient's significant lung disease and respiratory failure, it is expected his stay will be at least 2 overnights. IV azithromycin and IV Rocephin to cover for typical pathogens causing CAP Methylprednisolone IV 125 mg every 6 hours, inhaled/nebulized budesonide, DuoNeb treatments and Acapella for respiratory symptoms Continue home [place] dosage for his chronic pain related to recent rib fractures and postherpetic neuralgia SCDs and Lovenox for DVT prevention Ongoing Telemetry to monitor tachycardia Urinalysis, magnesium, and TSH for laboratory completeness Consider RT and/or pulmonology consult Discussed CODE STATUS with patient. He does not wish to receive CPR, however he is willing to be placed on a ventilator short-term should this be indicated given his respiratory condition. Case discussed with Dr. Heart in the ER and Dr. Smalls, attending. Hospital Course Summary Disclaimer: The visit summary below is not to be considered part of the above Progress Note. Hospital Course: Assessment acute on chronic respiratory failure COPD - acute exacerbation Community acquired pneumonia Multiple subacute rib and thoracic/lumbar vertebral compression fractures Postherpetic neuralgia presumed osteoporosis chronic steroid use HTN 11/06/16-hospital admission Admit to inpatient status to the hospitalist team with Dr. Smalls attending Given patient's significant lung disease and respiratory failure, it is expected his stay will be at least 2 overnights. IV azithromycin and IV Rocephin to cover for typical pathogens causing CAP Methylprednisolone IV 125 mg every 6 hours, inhaled/nebulized budesonide, DuoNeb treatments and Acapella for respiratory symptoms Continue home [place] dosage for his chronic pain related to recent rib fractures and postherpetic neuralgia SCDs and Lovenox for DVT prevention Ongoing Telemetry to monitor tachycardia Urinalysis, magnesium, and TSH for laboratory completeness Consider RT and/or pulmonology consult Discussed CODE STATUS with patient. He does not wish to receive CPR, however he is willing to be placed on a ventilator short-term should this be indicated given his respiratory condition. Case discussed with Dr. Heart in the ER and Dr. Smalls, attending. <Samir Smalls - Last Filed: 11/06/16 14:08> History of Present Illness Date: 11/06/16 COUNTS INCLUDE 234 BEDS AT THE [facility] Patient Stated Medical History Hypertension Yes Chronic Obstructive Pulmonary Yes Disease (COPD) Gastroesophageal Reflux Yes Disease Shingles Yes Exam Vital Signs: Temperature 99.3 F 11/06/16 09:54 Pulse Rate 120 H 11/06/16 11:19 Respiratory Rate 22 11/06/16 13:25 Blood Pressure 155/92 H 11/06/16 10:14 Pulse Oximetry 96 11/06/16 13:25 Height/Weight/BMI: Height 1.73 m Weight 71.2 kg Body Mass Index 23.8 Results - Labs CBC & Chem 7: 11/06/16 07:00 11/06/16 07:00 Assessment and Plan (1) Respiratory failure Current visit: Yes Status: Acute (2) Pneumonia Current visit: Yes Status: Acute Assessment and Plan: Assessment Sepsis syndrome due to pneumonia - Leukocytosis, Tachycardia, tachypnea. ( Present on presentation in ED) Pneumonia - community acquired Acute on chronic respiratory failure COPD - acute exacerbation Multiple subacute rib and thoracic/lumbar vertebral compression fractures Postherpetic neuralgia Presumed osteoporosis Chronic steroid use HTN Hypernatremia (POA) Hypokalemia (POA) Have independently interviewed and examined pt. Chart reviewed. Case discussed with ED provider and my PA. Care plan developed with my supervision; agree with above. Worsening shortness of breath and cough. Gradually progressive over past several month (not been able to leave house for 9 month). Last week or 2, having increased congestion, cough, and sputum. Sputum thick and hard to clear. Medications not helping. Winded even at rest with his O2. Shallow breathing; hard to take deep breath. Hard to eat due to SOA. No reflux or nausea. Stools slow at times but Miralax helps. No sinus congestion or pressure. Much more weak. Lungs: decreased, little air movement. Shallow breathing. Labored breathing even at rest CV: regular AB: soft slight distention, NT, BS decreased MSE: awake alert appropriate Plan: Inpatient admission for treatment of acute on chronic respiratory failure with pneumonia meeting sepsis criteria; anticipate greater than 2 midnights of care needed. Will initial Rocephin and azithromycin for pulmonary coverage. Solu -Medrol 125mg IV q6 hours to decrease pulmonary inflammation. Neb treatments of DuoNeb and budesonide. Mucinex DM BID routinely for cough and mucolytic effect. Acapella to help loosen secretions. As needed lorazepam 0.5mg IV q 4 hours as needed for anxiety secondary to air hunger. Neurontin 300mg at night to help neuralgic pain-continue prn [place]. IVF of 1/2NS with 20mEg to help normalize electrolytes. SCD for DVT prevention. Monitor lab. Care to return to Dr Rangel at discharge from [facility] [place]. - Time spent with patient greater than 35 minutes Hospital Course Summary Disclaimer: The visit summary below is not to be considered part of the above Progress Note. Addendum entered and electronically signed by Damari Perrin PA 11/06/16 12:07 : Thrush should be added to the above diagnoses. Patient to be treated with nystatin oral suspension.
[2016-11-06] MEDS ORDERED: ONDANSETRON 4 MG/2 ML INJECTION IVP PRN (10:46)
[2016-11-06] MEDS ORDERED: ALBUTEROL/IPRATROPIUM 2.5mg-0.5mg/3ml NEB AEROSOL PRN (10:46)
[2016-11-06] MEDS: CEFTRIAXONE 1 G in NS 100 ML IV SCH (10:51)
[2016-11-06] MEDS: GUAIFENESIN/D-METHORPHAN 600mg/30mg TABLET PO SCH ×2 (11:43→21:21)
[2016-11-06] MEDS ORDERED: HYDROCODONE/APAP 5mg/325mg TABLET PO PRN (11:52)
[2016-11-06] MEDS: METHYLPREDNISOLONE SOD SUCC 125mg/2ml INJECTION IVP SCH ×3 (11:55→21:22)
[2016-11-06] MEDS: ENOXAPARIN 40 MG/0.4 ML INJECTION SQ SCH (12:20)
[2016-11-06] MEDS: ALBUTEROL/IPRATROPIUM 2.5mg-0.5mg/3ml NEB AEROSOL SCH ×3 (13:24→20:16)
[2016-11-06] MEDS ORDERED: ACETAMINOPHEN 325 MG TABLET PO PRN (13:50)
[2016-11-06] MEDS ORDERED: BISACODYL 10 MG SUPPOSITORY RECTALLY PRN (13:50)
[2016-11-06] MEDS ORDERED: POLYETHYL GLYCOL 3350 17gm PACKET PO PRN (13:50)
[2016-11-06] MEDS: NYSTATIN 500,000 units/5 ml ORAL LIQUID PO SCH ×4 (13:54→21:21)
[2016-11-06] MEDS: AMLODIPINE 5 MG TABLET PO SCH (18:12)
[2016-11-06] MEDS: BUDESONIDE INH.SOLN 0.5mg/2ml NEB AEROSOL SCH ×2 (19:45→20:16)
[2016-11-06] MEDS: GABAPENTIN 300 MG CAPSULE PO SCH (21:21)
[2016-11-07] MEDS: METHYLPREDNISOLONE SOD SUCC 125mg/2ml INJECTION IVP SCH ×4 (02:53→21:36)
[2016-11-07] MEDS: SALINE FLUSH 10ml SYRINGE IVF PRN ×3 (04:49→21:36)
[2016-11-07] MEDS: ALBUTEROL/IPRATROPIUM 2.5mg-0.5mg/3ml NEB AEROSOL SCH ×4 (06:50→20:51)
[2016-11-07] MEDS: BUDESONIDE INH.SOLN 0.5mg/2ml NEB AEROSOL SCH ×2 (06:50→20:51)
[2016-11-07] MEDS: 1/2 NS with KCL 20mEq 1,000 ML IV SCH ×3 (09:18→20:13)
[2016-11-07] MEDS: AZITHROMYCIN IV 500 MG in NS 250ml 250 ML IV SCH (09:19)
[2016-11-07] MEDS: NYSTATIN 500,000 units/5 ml ORAL LIQUID PO SCH ×4 (09:20→21:36)
[2016-11-07] MEDS: AMLODIPINE 5 MG TABLET PO SCH (09:20)
[2016-11-07] MEDS: ENOXAPARIN 40 MG/0.4 ML INJECTION SQ SCH (09:20)
[2016-11-07] MEDS: GUAIFENESIN/D-METHORPHAN 600mg/30mg TABLET PO SCH ×2 (09:20→21:36)
[2016-11-07] MEDS: CEFTRIAXONE 1 G in NS 100 ML IV SCH (12:13)
--- NOTE | 2016-11-07 12:40 | Progress Note ---
Subjective: F/U: Sepsis secondary to pneumonia, Pneumonia, Acute on chronic resp failure. About the same today. Breathing not worse, but not better. SOA with any activities. Some cough/congestion. Was able to eat this morning. Appetite fair. No nausea or ab pain. No mouth pain or pain with swallow. Did have stool this am. Urinating well. Feels chilled all the time-likes room cool and to have fan on. Objective Vital signs: Temperature 98.3 F 11/07/16 07:00 Pulse Rate 100 11/07/16 11:00 Respiratory Rate 18 11/07/16 12:35 Blood Pressure 152/99 H 11/07/16 07:00 Pulse Oximetry 95 11/07/16 12:35 Height/Weight/BMI: Height 1.73 m Weight 72.5 kg Body Mass Index 23.8 - Constitutional Present: moderate distress, well nourished, well developed, cooperative. Absent : agitated - Routine HEENT Exam Head: Present: normocephalic, atraumatic, cushingoid faces Eye: Present: EOMI, PERRL ENT: Present: mucous membranes moist - Routine Respiratory Exam Present: decreased breath sounds, prolonged expiratory phase, respiratory distress (Mild at rest ), distant breath sounds, diminished air movement - Routine Cardiovascular Exam Present: RRR, no murmur - Routine Abdominal Exam Present: soft, normoactive bowel sounds, non tender. Absent: guarding - Routine Extremities Exam Present: cyanosis, clubbing, edema (+1 pedal ) - Routine Musculoskeletal Exam Musculoskeletal: Present: no clubbing or cyanosis - Routine Skin Exam Present: intact, warm, normal turgor - Routine Neurological Exam Present: alert, oriented X3, CN II-XII intact, vision grossly intact, hearing grossly intact. Absent: motor deficit - Routine Psychiatric Exam Present: normal affect, normal thought process, cooperative. Absent: agitated Results - Labs CBC & Chem 7: 11/07/16 04:43 11/07/16 04:43 Assessment and Plan (1) Respiratory failure Current visit: Yes Status: Acute (2) Pneumonia Current visit: Yes Status: Acute DVT Prophylaxis: SCD's, Lovenox Resuscitation Status: Limited Code Assessment and Plan: Assessment Sepsis syndrome due to pneumonia - Leukocytosis, Tachycardia, tachypnea. 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 Continue Rocephin and azithromycin for pulmonary coverage (Day #2). Continue Solu-Medrol at 125mg IV q 6 hours. Neb treatments/acapella/Mucinex. Will consult Dr Bolton for pulmonary evaluation - not been able to see his stereo compiler for ~1 year to due his severe pulm debility. ? if other meds or respiratory support would be beneficial. ? need for more help with ventilation. Concern that patient at end stage of his respiratory disease. Decrease IVF to 50cc/hr as patient taking oral in better. Sodium normalized at 143. Potassium increased to 3.4 - will give additional oral KCl and monitor. Nystatin started yesterday for thrush. Norvasc started yesterday due to significant BP elevation. Lorazepam as needed for anxiety/air hunger due to chronic respiratory failure. Monitor lab. Case discussed with CM and his . Time spent with patient care 25 minutes. - Time spent with patient 25 - 35 minutes Sepsis Assessment - Evaluation Sepsis screening result: No Definite Risk Hospital Course Summary Disclaimer: The visit summary below is not to be considered part of the above Progress Note. Hospital Course: Assessment Sepsis syndrome due to pneumonia - Leukocytosis, Tachycardia, tachypnea. 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 Multiple subacute rib and thoracic/lumbar vertebral compression fractures Postherpetic neuralgia Presumed osteoporosis Chronic steroid use HTN Hypernatremia (POA) Hypokalemia (POA) Thrush Significant pulmonary debility 11/06/16-hospital admission Admit to inpatient status to the hospitalist team with Dr. Smalls attending. Given patient's significant lung disease and respiratory failure, it is expected his stay will be at least 2 overnights. IV azithromycin and IV Rocephin to cover for typical pathogens causing CAP. Methylprednisolone IV 125 mg every 6 hours, inhaled/nebulized budesonide, DuoNeb treatments and Acapella for respiratory symptoms. Continue home [place] dosage for his chronic pain related to recent rib fractures and postherpetic neuralgia. Will add Neurontin 300mg at night as well. SCDs and Lovenox for DVT prevention. Ongoing Telemetry to monitor tachycardia. Check ECHO due to elevated BNP - suspect significant pulmonary HTN due to his lung disease. Urinalysis, magnesium, and TSH for laboratory completeness. Consider RT and/or pulmonology consult. Discussed CODE STATUS with patient. He does not wish to receive CPR, however he is willing to be placed on a ventilator short-term should this be indicated given his respiratory condition. 11/07/16 Sepsis syndrome resolving. Continue Rocephin and azithromycin for pulmonary coverage (Day #2). Continue Solu-Medrol at 125mg IV q 6 hours. Neb treatments/acapella/Mucinex. Will consult Dr Bolton for pulmonary evaluation - not been able to see his stereo compiler for ~1 year to due his severe pulmonary debility. ? if other medications or respiratory support would be beneficial. ? need for more help with ventilation. Concern that patient at end stage of his respiratory disease. Decrease IVF to 50cc/hr as patient taking oral in better. Sodium normalized at 143. Potassium increased to 3.4 - will give additional oral KCl and monitor. Nystatin started yesterday for thrush. Norvasc started yesterday due to significant BP elevation. Lorazepam as needed for anxiety/air hunger due to chronic respiratory failure.
[2016-11-07] MEDS: GABAPENTIN 300 MG CAPSULE PO SCH (21:36)
[2016-11-08] MEDS: METHYLPREDNISOLONE SOD SUCC 125mg/2ml INJECTION IVP SCH ×4 (03:20→20:28)
[2016-11-08] MEDS: SALINE FLUSH 10ml SYRINGE IVF PRN ×4 (03:21→23:40)
[2016-11-08] MEDS: 1/2 NS with KCL 20mEq 1,000 ML IV SCH ×2 (05:49→20:25)
[2016-11-08] MEDS: ALBUTEROL/IPRATROPIUM 2.5mg-0.5mg/3ml NEB AEROSOL SCH ×4 (07:55→19:01)
--- NOTE | 2016-11-08 09:10 | Progress Note ---
<MortezaMaria Isabel D - Last Filed: 11/08/16 09:05> Subjective: Nursing staff contacted the hospitalist dept earlier this am to report increased shortness of breath. By the time I arrived, Forrest was feeling better and his symptoms had resolved. He described "a little" chest discomfort during that time - he has had that feeling before but it was slightly worse this morning. He notes some abdominal distention and describes weight gain. He didn' t sleep well last night. Objective Vital signs: Temperature 98.1 F 11/08/16 07:00 Pulse Rate 113 H 11/08/16 07:00 Respiratory Rate 20 11/08/16 07:00 Blood Pressure 160/106 H 11/08/16 07:00 Pulse Oximetry 95 11/08/16 07:00 Height/Weight/BMI: Height 1.73 m Weight 73.5 kg Body Mass Index 23.8 - Constitutional Present: mild distress - Routine HEENT Exam Head: Present: cushingoid faces Eye: Absent: conjunctival icterus Comments: BiPAP mask in place - Routine Respiratory Exam Present: decreased breath sounds, prolonged expiratory phase, distant breath sounds, diminished air movement - Routine Cardiovascular Exam Present: RRR, S1, S2 - Routine Abdominal Exam Present: distended. Absent: normoactive bowel sounds (hypoactive) - Routine Extremities Exam Present: edema (b/l feet) - Routine Skin Exam Present: dry, warm, ecchymosis (b/l arms) - Routine Neurological Exam Present: alert, oriented X3 - Routine Psychiatric Exam Present: normal affect, normal thought process, cooperative Results - Labs CBC & Chem 7: 11/08/16 04:41 11/08/16 04:41 Assessment and Plan (1) Respiratory failure Current visit: Yes Status: Acute (2) Pneumonia Current visit: Yes Status: Acute DVT Prophylaxis: SCD's, Lovenox Resuscitation Status: Limited Code Assessment and Plan: Assessment Sepsis syndrome due to pneumonia - Leukocytosis, Tachycardia, tachypnea. 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 Fluid balance is positive. May need to consider stopping IVF and/or diuresing - Na level has improved to 144. K 3.4 - will give extra KDur. Chest discomfort this am, assoc. with increased dyspnea - will check trop. Echo pending. Hgb has trended down from 12 to 9.7 - check iron studies, vitamin B12, folate, check stool for occult blood. Platelets have also been trending down - will hold Lovenox for now. Continue Rocephin and azithromycin for pulmonary coverage (Day #3). Continue Solu-Medrol at 125mg IV q 6 hours. Neb treatments/acapella/Mucinex. Dr. Bolton has been consulted. High risk med: IV Ativan. Sepsis Assessment - Evaluation Sepsis screening result: No Definite Risk Hospital Course Summary Disclaimer: The visit summary below is not to be considered part of the above Progress Note. Hospital Course: Assessment Sepsis syndrome due to pneumonia - Leukocytosis, Tachycardia, tachypnea. 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 Multiple subacute rib and thoracic/lumbar vertebral compression fractures Postherpetic neuralgia Presumed osteoporosis Chronic steroid use HTN Hypernatremia (POA) Hypokalemia (POA) Thrush Significant pulmonary debility 11/06/16-hospital admission Admit to inpatient status to the hospitalist team with Dr. Smalls attending. Given patient's significant lung disease and respiratory failure, it is expected his stay will be at least 2 overnights. IV azithromycin and IV Rocephin to cover for typical pathogens causing CAP. Methylprednisolone IV 125 mg every 6 hours, inhaled/nebulized budesonide, DuoNeb treatments and Acapella for respiratory symptoms. Continue home [place] dosage for his chronic pain related to recent rib fractures and postherpetic neuralgia. Will add Neurontin 300mg at night as well. SCDs and Lovenox for DVT prevention. Ongoing Telemetry to monitor tachycardia. Check ECHO due to elevated BNP - suspect significant pulmonary HTN due to his lung disease. Urinalysis, magnesium, and TSH for laboratory completeness. Consider RT and/or pulmonology consult. Discussed CODE STATUS with patient. He does not wish to receive CPR, however he is willing to be placed on a ventilator short-term should this be indicated given his respiratory condition. 11/07/16 Sepsis syndrome resolving. Continue Rocephin and azithromycin for pulmonary coverage (Day #2). Continue Solu-Medrol at 125mg IV q 6 hours. Neb treatments/acapella/Mucinex. Will consult Dr Bolton for pulmonary evaluation - not been able to see his security guards dispatcher for ~1 year to due his severe pulmonary debility. ? if other medications or respiratory support would be beneficial. ? need for more help with ventilation. Concern that patient at end stage of his respiratory disease. Decrease IVF to 50cc/hr as patient taking oral in better. Sodium normalized at 143. Potassium increased to 3.4 - will give additional oral KCl and monitor. Nystatin started yesterday for thrush. Norvasc started yesterday due to significant BP elevation. Lorazepam as needed for anxiety/air hunger due to chronic respiratory failure. 11/08/16 Check CXR today - increasing oxygen needs (now on 4L) and weight is trending up. Fluid balance is positive. May need to consider stopping IVF and/or diuresing - Na level has improved to 144. K 3.4 - will give extra KDur. Chest discomfort this am, assoc. with increased dyspnea - will check trop. Echo pending. Hgb has trended down from 12 to 9.7 - check iron studies, vitamin B12, folate, check stool for occult blood. Platelets have also been trending down - will hold Lovenox for now. Continue Rocephin and azithromycin for pulmonary coverage (Day #3). Continue Solu-Medrol at 125mg IV q 6 hours. Neb treatments/acapella/Mucinex. Dr. Bolton has been consulted. High risk med: IV Ativan. <Samir Smalls - Last Filed: 11/08/16 18:56> Objective Vital signs: Temperature 98.1 F 11/08/16 07:00 Pulse Rate 118 H 11/08/16 15:56 Respiratory Rate 24 11/08/16 14:58 Blood Pressure 146/108 H 11/08/16 13:26 Pulse Oximetry 93 11/08/16 14:58 Height/Weight/BMI: Height 1.73 m Weight 73.5 kg Body Mass Index 23.8 Results - Labs CBC & Chem 7: 11/08/16 04:41 11/08/16 04:41 - ABG Interpretation ABG results: 11/08/16 17:45 ABG pH 7.450 ABG pCO2 50 H ABG pO2 75 L ABG HCO3 35 H ABG Total CO2 36.3 H ABG O2 Saturation 96.0 ABG Base Excess 9.3 H Assessment and Plan (1) Respiratory failure Current visit: Yes Status: Acute (2) Pneumonia Current visit: Yes Status: Acute Assessment and Plan: Assessment Sepsis syndrome due to pneumonia - Leukocytosis, Tachycardia, tachypnea. 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 Chart reviewed. Case discussed with Dr Bolton and my CASE COORDINATOR. Care plan developed with my supervision; agree with above. Rough morning-more SOA and very anxious/panicky due to his dyspnea. Lorazepam helped some. BIPAP started which patient feels very beneficial. Much easier to breath with BIPAP. Had to breath without. Some cough/congestion. Appetite with slight decrease, also hard to eat when not on BIPAP. Urinating well. Stools stable. Lungs: significantly decrease, not hearing any air movement even with BIPAP support CV: regular AB: soft slight distention, BS present MSE: awake alert appropriate Plan: Continue antibiotic therapy. Will taper down steroids-not seeing any improvement with them. IVF stopped. BIPAP for respiratory support-Dr Bolton reports patient will definitely need ventilatory support in outpatient setting. Will have CM/SW look into insurance options for patient. Hospital Course Summary Disclaimer: The visit summary below is not to be considered part of the above Progress Note.
[2016-11-08] MEDS: GUAIFENESIN/D-METHORPHAN 600mg/30mg TABLET PO SCH ×2 (09:16→20:28)
[2016-11-08] MEDS: ENOXAPARIN 40 MG/0.4 ML INJECTION SQ SCH (09:16)
[2016-11-08] MEDS: NYSTATIN 500,000 units/5 ml ORAL LIQUID PO SCH ×4 (09:16→20:28)
[2016-11-08] MEDS: AMLODIPINE 5 MG TABLET PO SCH (09:17)
[2016-11-08] MEDS: CEFTRIAXONE 1 G in NS 100 ML IV SCH (09:24)
[2016-11-08] MEDS: AZITHROMYCIN IV 500 MG in NS 250ml 250 ML IV SCH (10:43)
--- NOTE | 2016-11-08 11:02 | XRay Report ---
Indication: resp failure PROCEDURE: XR chest 1V: Encounter: Initial Comparison: CT angiogram of the chest dated November 06, 2016 Findings: Continued right basilar airspace consolidation with a small right effusion. Left basilar airspace disease and small left effusion is grossly stable. Possible new infiltrate in the right midlung. Emphysema. Mild pulmonary edema. No pneumothorax. Mediastinal contours are poorly evaluated due to the rotation present. Pulmonary vascularity is enlarged with Frieda B lines present. Heart size is grossly stable. Impression: Moderate pulmonary edema with worsening right-sided pneumonia. .
[2016-11-08] MEDS: BUDESONIDE INH.SOLN 0.5mg/2ml NEB AEROSOL SCH ×2 (11:19→19:01)
--- NOTE | 2016-11-08 16:38 | Pulmonology Consult Note ---
History of Present Illness Consult date: 11/08/16 Requesting physician: Samir Smalls Reason for consult: COPD Chief complaint: shortness of breath History of present illness: This is a 60 year old gentleman with severe COPD. He is currently on BIPAP 8/5 rate 12, FiO2 30%. His is at the bedside and was able to give a good history. He was seeing Dr John but about a year and a half ago he lost his ability to ambulate much and could not keep up with appointments. states that he has been having increased shortness of breath in spite of using O2 continuously. He takes Prednisone 30 mg daily and is unable to wean from that due to dyspnea. His PCP is Dr Rangel. He was brought to the ED for breathlessness and weakness. He is a modified code, would accept ventilation on a limited basis. He has back and rib pain due to a recent rib injury from coughing. He denied fevers/chills. No cough or sputum. no hemoptysis. Frequently wheezes. PFSH Past medical history "Emphysema" Chronic back pain Postherpetic neuralgia Hypertension Former [id number]-year history Surgical History: Appendectomy at age 18 Family History: Father at age 75-coronary artery disease Mother is still living with no known health problems Brother-recently of "the same symptoms I'm having right now" - likely respiratory failure - Social History Smoking status: Former smoker Packs-years: 40 Quit date: 01/10/16 Substance use type: does not use Alcohol intake frequency: does not drink Household members: spouse, children (22 y.o. son) Current occupational status: disabled (x 1 year due emphysema) Previous occupational history: previously worked at [employer] for over 30 years Social history: Has been home bound for the past 9 mos. PCP-Dr. Rangel Pulm - Dr. Menjivar (Pt prefers to see local event marketing representative if possible.) Review of Systems All systems: reviewed and no additional remarkable complaints except as stated PFSH Patient Stated Medical History Hypertension Yes Chronic Obstructive Pulmonary Yes Disease (COPD) Gastroesophageal Reflux Yes Disease Shingles Yes Medical History Updates: Emphysema. Severe pain Surgical History: Appendectomy at age 18 - Social History Smoking status: Former smoker Medications Home Medications Medication Instructions Recorded Confirmed Type Hydrocodone/APAP 5/325 [[place] 1 - 2 tab PO Q3-6HR PRN 11/06/16 11/06/16 History 5/325] Mometasone/Formoterol 200/5 2 puff INH BID 11/06/16 11/06/16 History [DULERA 200/5mcg INHALER] PredniSONE [Deltasone] 30 mg PO WB 11/06/16 11/06/16 History Allergies Allergy/AdvReac Type Severity Reaction Status Date / Time No Known Allergies Allergy Verified 11/06/16 07:34 Exam Vital signs: Temperature 98.1 F 11/08/16 07:00 Pulse Rate 113 H 11/08/16 13:26 Respiratory Rate 24 11/08/16 14:58 Blood Pressure 146/108 H 11/08/16 13:26 Pulse Oximetry 93 11/08/16 14:58 - Constitutional cachectic Comments: appears chronically ill. on mask ventilation. - Routine HEENT Exam Head: Present: normocephalic, atraumatic, cushingoid faces Eye: Present: EOMI, PERRL - Routine Neck Exam Present: supple, full ROM - Routine Chest/Breast/Axilla Exam Chest wall: Present: tenderness - Routine Respiratory Exam Present: accessory muscle use, decreased breath sounds, prolonged expiratory phase, wheezes - Routine Cardiovascular Exam Present: RRR, S1, S2. Absent: murmur - Routine Abdominal Exam Present: soft, normoactive bowel sounds. Absent: guarding - Routine Extremities Exam Present: edema. Absent: cyanosis, clubbing - Routine Skin Exam Present: petechiae, ecchymosis. Absent: jaundice - Routine Neurological Exam Present: alert, oriented X3 - Routine Psychiatric Exam Absent: anxious Results - Laboratory Findings CBC and BMP: 11/08/16 04:41 11/08/16 04:41 PT/INR, D-dimer D-Dimer 791 NG/ML (0-230) H 11/06/16 07:00 Abnormal lab findings: Abnormal Labs 11/07/16 11/07/16 11/08/16 04:43 04:43 04:41 RBC 3.16 L 3.05 L Hgb 10.1 L D 9.7 L Hct 31.7 L D 30.8 L MCV 100.3 H 101.0 H RDW Std Deviation 56.3 H 57.8 H Neutrophils % (Manual) 94.0 H 96.0 H Lymphocytes % (Manual) 2.0 L 3.0 L Neutrophils # (Manual) 8.0 H 10.0 H Lymphocytes # (Manual) 0.2 L 0.3 L Potassium 3.4 L Carbon Dioxide 36 H BUN Glucose 142 H Calculated Osmolality Calcium Magnesium Total Bilirubin 1.40 H Total Protein 5.6 L Albumin 3.3 L Globulin 2.3 L 11/08/16 04:41 RBC Hgb Hct MCV RDW Std Deviation Neutrophils % (Manual) Lymphocytes % (Manual) Neutrophils # (Manual) Lymphocytes # (Manual) Potassium 3.4 L Carbon Dioxide 34 H BUN 23.0 H Glucose 137 H Calculated Osmolality 283 H Calcium 8.3 L Magnesium 2.4 H Total Bilirubin Total Protein Albumin Globulin - Diagnostic Findings Chest x-ray: report reviewed CT scan - chest: report reviewed, image reviewed (CT shows small bialteral effusions, hazy ground glass infiltrates, r basilar atelectasis) Assessment and Plan (1) Acute on chronic respiratory failure with hypoxia and hypercapnia Current visit: Yes Status: Acute Check ABG. He is high risk for acute respiratory failure causing signficant morbidity and mortality including hospitalization and . I would recommend home vent to mask to be worn at night and prn during the daytime to help lessen those risks. Continue O2 by nc to keep his sat >90% Consider adding oral benzodiazepine to help with anxiety to reduce discomfort (2) Acute exacerbation of chronic obstructive pulmonary disease (COPD) Current visit: Yes Status: Acute Systemic corticosteroids with IV solumedrol, transitioning to oral prednsione. Nebulized albuterol/ipratropium bromide q4h. Monitor CXR . May benefit from gentle diuresis as well. We will follow with you.
[2016-11-08] MEDS: GABAPENTIN 300 MG CAPSULE PO SCH (20:28)
[2016-11-09] MEDS: METHYLPREDNISOLONE SOD SUCC 125mg/2ml INJECTION IVP SCH ×4 (03:09→21:09)
[2016-11-09] MEDS: SALINE FLUSH 10ml SYRINGE IVF PRN ×6 (03:09→21:24)
[2016-11-09] MEDS: ALBUTEROL/IPRATROPIUM 2.5mg-0.5mg/3ml NEB AEROSOL SCH ×5 (07:40→20:41)
[2016-11-09] MEDS: BUDESONIDE INH.SOLN 0.5mg/2ml NEB AEROSOL SCH ×2 (07:57→20:43)
[2016-11-09] MEDS: GUAIFENESIN/D-METHORPHAN 600mg/30mg TABLET PO SCH ×2 (08:48→21:09)
[2016-11-09] MEDS: NYSTATIN 500,000 units/5 ml ORAL LIQUID PO SCH ×4 (08:48→21:10)
[2016-11-09] MEDS: CEFTRIAXONE 1 G in NS 100 ML IV SCH (08:48)
[2016-11-09] MEDS: AMLODIPINE 5 MG TABLET PO SCH (08:49)
--- NOTE | 2016-11-09 09:29 | XRay Report ---
Indication: copd exacerbation PROCEDURE: XR chest 1V: Encounter: Initial Comparison: November 08, 2016 Findings: Lungs are stable in appearance with bilateral infiltrates and small bilateral pleural effusions. No new or worsening airspace opacity. No pneumothorax. Heart size and mediastinal contours are grossly stable with rotation. Impression: Stable appearance of the chest. .
[2016-11-09] MEDS: AZITHROMYCIN IV 500 MG in NS 250ml 250 ML IV SCH (09:38)
[2016-11-09] MEDS ORDERED: MORPHINE SULFATE 2mg INJECTION IVP PRN ×2 (11:53→13:05)
--- NOTE | 2016-11-09 12:59 | Pulmonology Progress Note ---
Subjective Principal diagnosis: SOB Interval history: Pt in bed on bipap. States his breathing hasn't changed much. Still feels SOB and doesn't tolerate off bipap for long. Exam Vital signs: Temperature 98.6 F 11/09/16 07:21 Pulse Rate 112 H 11/09/16 08:43 Respiratory Rate 16 11/09/16 11:38 Blood Pressure 187/115 H 11/09/16 08:43 Pulse Oximetry 94 11/09/16 11:38 - Constitutional no acute distress, well developed - Routine HEENT Exam Head: Present: normocephalic, atraumatic Eye: Present: PERRL ENT: Present: mucous membranes moist - Routine Neck Exam Present: supple, full ROM - Routine Respiratory Exam Present: crackles, diminished air movement - Routine Cardiovascular Exam Present: RRR, no murmur - Routine Abdominal Exam Present: soft, normoactive bowel sounds - Routine Extremities Exam Present: edema, full ROM - Routine Back/Spine/Pelvis Exam Back/Spine: Present: full ROM - Routine Skin Exam Present: intact, dry - Routine Neurological Exam Present: alert, oriented X3, CN II-XII intact - Routine Psychiatric Exam Present: normal affect, normal thought process Progress Note-A&P (1) Acute on chronic respiratory failure with hypoxia and hypercapnia Status: Acute Assessment and plan: Pt currently on bipap 12, 10/5, 35% with good VT. States bipap is helping with SOB. Unable to come off bipap long secondary to SOB. Will add morphine for air hunger. Current Visit: Yes (2) Acute exacerbation of chronic obstructive pulmonary disease (COPD) Status: Acute Assessment and plan: Currently on pulmicort BID, a/a q4 and solumedrol 60mg q6hr. Still very diminished breath sounds, follow closely. Cont Bipap as needed. Current Visit: Yes (3) Pneumonia Status: Acute Assessment and plan: Currently on azithro/rocephin d#4, cultures showing psa awaiting susceptibility. Will change to cefepime instead and follow cultures. Current Visit: Yes - Time Spent With Patient Total time spent is greater than 50% in coordination of care (as documented) at patient's floor/unit and/or counseling patient: less than 15 minutes Sepsis Assessment - Evaluation Sepsis screening result: Severe Sepsis Risk
[2016-11-09] MEDS ORDERED: FUROSEMIDE 40 MG/4 ML INJECTION IVP ONE (15:00)
--- NOTE | 2016-11-09 15:00 | Progress Note ---
<Damari Perrin - Last Filed: 11/09/16 14:56> Subjective: Patient is seen lying in his bed with family in the room. He is on BiPAP. He is unable to go for any amount of time without his BiPAP without having respiratory distress. He is only taking sips of water, and is refusing to eat because he doesn't want to remove the BiPAP mask. PRN Ativan does help some with the symptoms. Objective Vital signs: Temperature 98.6 F 11/09/16 07:21 Pulse Rate 112 H 11/09/16 08:43 Respiratory Rate 16 11/09/16 11:38 Blood Pressure 187/115 H 11/09/16 08:43 Pulse Oximetry 94 11/09/16 11:38 Height/Weight/BMI: Height 1.73 m Weight 73.936 kg Body Mass Index 24.7 - Constitutional Present: moderate distress, well nourished, well developed, obese - Routine HEENT Exam Head: Present: normocephalic, atraumatic, cushingoid faces - Routine Respiratory Exam Present: wheezes, distant breath sounds, diminished air movement - Routine Cardiovascular Exam Present: RRR, S1, S2. Absent: murmur - Routine Abdominal Exam Present: soft, non distended. Absent: tenderness - Routine Extremities Exam Present: edema (pedal 2+ pitting), normal capillary refill - Routine Skin Exam Present: dry, warm Comments: Diffuse ecchymosis of the hands and arms. Dry, scaly skin. - Routine Neurological Exam Present: alert, oriented X3 - Routine Lymphatic Exam Lymphatic: Absent: adenopathy - Routine Psychiatric Exam Present: normal affect, normal thought process Results - Labs CBC & Chem 7: 11/09/16 04:48 11/09/16 04:48 - ABG Interpretation ABG results: 11/08/16 17:45 ABG pH 7.450 ABG pCO2 50 H ABG pO2 75 L ABG HCO3 35 H ABG Total CO2 36.3 H ABG O2 Saturation 96.0 ABG Base Excess 9.3 H Assessment and Plan (1) Respiratory failure Current visit: Yes Status: Acute (2) Pneumonia Current visit: Yes Status: Acute Assessment and Plan: Assessment Sepsis syndrome due to pneumonia - Leukocytosis, Tachycardia, tachypnea. 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 Sensitivities still pending. Patient requiring BiPAP constantly. Refusing to eat/drink due to respiratory distress. IV fluids were previously discontinued. Monitor for evidence of hydration. Will give another dose of Lasix 40 mg x 1 now given peripheral edema. Monitor I and O. Blood pressure is uncontrolled. Will increase amlodipine to 10 mg. May need to add another agent. Consider Romulo/ARB. Avoid beta alexi given his lung disease. Pulmonology will continue to follow. Sepsis Assessment - Evaluation Sepsis screening result: Severe Sepsis Risk Hospital Course Summary Disclaimer: The visit summary below is not to be considered part of the above Progress Note. Hospital Course: Assessment Sepsis syndrome due to pneumonia - Leukocytosis, Tachycardia, tachypnea. 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 Multiple subacute rib and thoracic/lumbar vertebral compression fractures Postherpetic neuralgia Presumed osteoporosis Chronic steroid use HTN Hypernatremia (POA) Hypokalemia (POA) Thrush Significant pulmonary debility 11/06/16-hospital admission Admit to inpatient status to the hospitalist team with Dr. Smalls attending. Given patient's significant lung disease and respiratory failure, it is expected his stay will be at least 2 overnights. IV azithromycin and IV Rocephin to cover for typical pathogens causing CAP. Methylprednisolone IV 125 mg every 6 hours, inhaled/nebulized budesonide, DuoNeb treatments and Acapella for respiratory symptoms. Continue home [place] dosage for his chronic pain related to recent rib fractures and postherpetic neuralgia. Will add Neurontin 300mg at night as well. SCDs and Lovenox for DVT prevention. Ongoing Telemetry to monitor tachycardia. Check ECHO due to elevated BNP - suspect significant pulmonary HTN due to his lung disease. Urinalysis, magnesium, and TSH for laboratory completeness. Consider RT and/or pulmonology consult. Discussed CODE STATUS with patient. He does not wish to receive CPR, however he is willing to be placed on a ventilator short-term should this be indicated given his respiratory condition. 11/07/16 Sepsis syndrome resolving. Continue Rocephin and azithromycin for pulmonary coverage (Day #2). Continue Solu-Medrol at 125mg IV q 6 hours. Neb treatments/acapella/Mucinex. Will consult Dr Bolton for pulmonary evaluation - not been able to see his pleat taper for ~1 year to due his severe pulmonary debility. ? if other medications or respiratory support would be beneficial. ? need for more help with ventilation. Concern that patient at end stage of his respiratory disease. Decrease IVF to 50cc/hr as patient taking oral in better. Sodium normalized at 143. Potassium increased to 3.4 - will give additional oral KCl and monitor. Nystatin started yesterday for thrush. Norvasc started yesterday due to significant BP elevation. Lorazepam as needed for anxiety/air hunger due to chronic respiratory failure. 11/08/16 Check CXR today - increasing oxygen needs (now on 4L) and weight is trending up. Fluid balance is positive. May need to consider stopping IVF and/or diuresing - Na level has improved to 144. K 3.4 - will give extra KDur. Chest discomfort this am, assoc. with increased dyspnea - will check trop. Echo pending. Hgb has trended down from 12 to 9.7 - check iron studies, vitamin B12, folate, check stool for occult blood. Platelets have also been trending down - will hold Lovenox for now. Continue Rocephin and azithromycin for pulmonary coverage (Day #3). Continue Solu-Medrol at 125mg IV q 6 hours. Neb treatments/acapella/Mucinex. Dr. Bolton has been consulted. High risk med: IV Ativan. 11/09/16 Antibiotics were changed to cefepime by pulmonology due to Pseudomonas growth. Sensitivities still pending. Patient requiring BiPAP constantly. Refusing to eat/drink due to respiratory distress. IV fluids were previously discontinued. Monitor for evidence of hydration. Will give another dose of Lasix 40 mg x 1 now given peripheral edema. Monitor I and O. Blood pressure is uncontrolled. Will increase amlodipine to 10 mg. May need to add another agent. Consider Romulo/ARB. Avoid beta alexi given his lung disease. Pulmonology will continue to follow. <SlimDawson Edmund - Last Filed: 11/09/16 19:24> Objective Vital signs: Temperature 100.3 F 11/09/16 16:13 Pulse Rate 109 H 11/09/16 16:13 Respiratory Rate 16 11/09/16 16:13 Blood Pressure 143/97 H 11/09/16 15:11 Pulse Oximetry 95 11/09/16 16:13 Height/Weight/BMI: Height 1.73 m Weight 73.936 kg Body Mass Index 24.7 Results - Labs CBC & Chem 7: 11/09/16 04:48 11/09/16 04:48 - ABG Interpretation ABG results: 11/08/16 17:45 ABG pH 7.450 ABG pCO2 50 H ABG pO2 75 L ABG HCO3 35 H ABG Total CO2 36.3 H ABG O2 Saturation 96.0 ABG Base Excess 9.3 H Assessment and Plan (1) Respiratory failure Current visit: Yes Status: Acute (2) Pneumonia Current visit: Yes Status: Acute DVT Prophylaxis: SCD's Resuscitation Status: Limited Code Assessment and Plan: Assessment Sepsis syndrome due to pneumonia - Leukocytosis, Tachycardia, tachypnea. 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 Chart reviewed. Case discussed with CM and my PA. Care plan developed with my supervision; agree with above. Needing BIPAP for most all of day-not able to come off to eat. MS added-really did help how he breaths; was able to take BIPAP off to eat. Extremely SOA with any movement. Some cough, congestion Lungs: decreased, minimal air movement. Labored at rest; does tolerate BIPAP CV: regular AB: soft nt/nd Plan: Cefepime started by pulm due to Pseudomonas in sputum. Gradually taper steroids. Continue BIPAP for respiratory support. MS and ativan to help air hunger. Lasix give to help any pulmonary edema. Norvasc increased to 10mg to help BP. Increase activities as able - worried about movements/transfers due to his subacute rib/lumbar vertebra Fx. Hospital Course Summary Disclaimer: The visit summary below is not to be considered part of the above Progress Note.
[2016-11-09] MEDS: CYANOCOBALAMIN (B-12) 1,000mcg/ml INJECTION IM SCH (15:14)
[2016-11-09] MEDS: CEFEPIME 1 GM in NS 100 ML IV SCH ×3 (15:14→21:10)
[2016-11-09] MEDS ORDERED: AMLODIPINE 5 MG TABLET PO ONE (15:20)
[2016-11-09] MEDS: MORPHINE SULFATE 2mg INJECTION IVP PRN ×2 (18:29→21:24)
--- NOTE | 2016-11-09 18:56 | Echocardiogram ---
DATE OF STUDY 11/06/2016 INDICATIONS ? pulmonary hypertension, COPD. TECHNICAL QUALITY Technically difficult study due to challenging acoustic windows in the presence of tachycardia throughout. FINDINGS 1. CARDIAC CHAMBERS: Left atrial size is normal. Left ventricle appears enlarged based on parasternal and long axis images, measuring 6.5 cm, with regional wall motion abnormalities involving the inferior wall and especially the inferolateral wall. Marked hypokinesis to akinesis. The anterior septum is hyperdynamic. Left ventricular systolic dysfunction is present. It is difficult to get an accurate ejection fraction in the presence of tachycardia and dysrhythmia. LV systolic dysfunction appears to be of a moderate degree. Diastolic assessment is difficult. Peak flow velocity at the aortic valve level is 1.4 m/sec, LVOT 0.65 m/sec. The latter is decreased. Another measurement is 0.9 m/sec. 2. LEFT VENTRICLE: Trace tricuspid regurgitation is present. Systolic PA pressure is estimated at 42 mmHg per Bernoulli equation. 3. No evidence of pericardial effusion, intracardiac masses, thrombi, vegetations or shunts. IMPRESSION 1. Technically difficult study due to challenging acoustic windows plus the presence of dysthymia and tachycardia. 2. LV enlargement with wall motion abnormalities suggestive of prior large posteroinferior wall CT. 3. Depressed LV systolic function, appears to be in the moderate range. 4. No significant valvular dysfunction. 5. I don't see any significant pericardial effusion, intracardiac masses, thrombi, vegetations or shunts. 6. Normal central venous pressure. 7. Mild pulmonary hypertension. Estimated systolic PA pressure 42 mmHg. MTDD
[2016-11-09] MEDS: GABAPENTIN 300 MG CAPSULE PO SCH (21:09)
[2016-11-10] MEDS: SALINE FLUSH 10ml SYRINGE IVF PRN ×6 (00:03→20:06)
[2016-11-10] MEDS: MORPHINE SULFATE 2mg INJECTION IVP PRN ×4 (00:04→13:39)
[2016-11-10] MEDS: METHYLPREDNISOLONE SOD SUCC 125mg/2ml INJECTION IVP SCH ×4 (03:28→20:05)
[2016-11-10] MEDS: CEFEPIME 1 GM in NS 100 ML IV SCH ×3 (03:28→19:10)
[2016-11-10] MEDS: BUDESONIDE INH.SOLN 0.5mg/2ml NEB AEROSOL SCH ×3 (08:00→19:27)
[2016-11-10] MEDS: ALBUTEROL/IPRATROPIUM 2.5mg-0.5mg/3ml NEB AEROSOL SCH ×4 (08:01→19:28)
[2016-11-10] MEDS ORDERED: AMLODIPINE 10 MG TABLET PO SCH (09:00)
[2016-11-10] MEDS: GUAIFENESIN/D-METHORPHAN 600mg/30mg TABLET PO SCH ×2 (09:15→20:07)
[2016-11-10] MEDS: NYSTATIN 500,000 units/5 ml ORAL LIQUID PO SCH ×4 (09:15→20:07)
[2016-11-10] MEDS: AZITHROMYCIN IV 500 MG in NS 250ml 250 ML IV SCH (10:15)
[2016-11-10] MEDS: CYANOCOBALAMIN (B-12) 1,000mcg/ml INJECTION IM SCH (10:17)
[2016-11-10] MEDS ORDERED: DiltiaZEM 25 MG/5 ML INJECTION IVP ONE ×2 (10:29→10:53)
[2016-11-10] MEDS: LOSARTAN 50 MG TABLET PO SCH (11:01)
[2016-11-10] MEDS ORDERED: DiltiaZEM IR 60 MG TABLET PO SCH (11:30)
[2016-11-10] MEDS ORDERED: DILTIAZEM DRIP IV PRN (11:30)
[2016-11-10] MEDS ORDERED: NS IV PRN (11:30)
[2016-11-10] MEDS: DiltiaZEM Drip 125 MG in NS 100 ML IV PRN ×2 (11:45→17:20)
--- NOTE | 2016-11-10 12:24 | Pulmonology Progress Note ---
Subjective Principal diagnosis: SOB Interval history: Pt in bed on bipap continuously. Settings IPAP 12, EPAP 6, rate 12, FIo2 35%. Moved to ICU this AM due to tachycardia/SVT. Started on IV cardizem and rate now 115 sinus tachy. still very anxious and intermittenly receiving benzodiazepines. States his breathing hasn't changed much. Still feels SOB and doesn't tolerate off bipap for long. When he is off he is only requiring 5 lpm O2. Exam Vital signs: Temperature 98.1 F 11/10/16 07:21 Pulse Rate 160 H 11/10/16 10:52 Respiratory Rate 17 11/10/16 11:47 Blood Pressure 118/82 11/10/16 10:52 Pulse Oximetry 97 11/10/16 11:47 - Constitutional cooperative Comments: anxious appearing. - Routine HEENT Exam Head: Present: normocephalic, atraumatic Eye: Present: PERRL. Absent: conjunctival icterus - Routine Neck Exam Present: supple, full ROM - Routine Respiratory Exam Present: accessory muscle use, decreased breath sounds. Absent: rhonchi, crackles - Routine Cardiovascular Exam Present: tachycardia Comments: regular rhythm. - Routine Abdominal Exam Present: soft, distended. Absent: guarding Progress Note-A&P (1) Acute on chronic respiratory failure with hypoxia and hypercapnia Status: Acute Assessment and plan: continue bipap as needed, which is nearly continuous at this time. Modest O2 keeps his sat>90%. Discussed with Lukasz. Anxiety is certainly an issue, however I would recommend starting prophylactic anticoagulation and check D dimer. I would consider PE study if D dimer is elevated, just to be complete. Current Visit: Yes (2) Acute exacerbation of chronic obstructive pulmonary disease (COPD) Status: Acute Assessment and plan: very severe disease. end-of-life conversations with would seem appropriate and we will initiate those depending upon his response to treatment Current Visit: Yes (3) Supraventricular tachycardia Status: Acute Assessment and plan: now controlled with cardizem drip. sinus tachy on monitor at this point Current Visit: Yes - Time Spent With Patient Total time spent is greater than 50% in coordination of care (as documented) at patient's floor/unit and/or counseling patient: less than 15 minutes Sepsis Assessment - Evaluation Sepsis screening result: No Definite Risk
--- NOTE | 2016-11-10 13:26 | Progress Note ---
Subjective: Mr. Grider was seen urgently this morning after nursing notified me that he converted to narrow complex tachycardia with heart rates up to 194. IV diltiazem was given with minimal slowing and the heart rate prior to my arrival. Patient denied chest pain or palpitations and reported that dyspnea was about normal for him. He was on BiPAP when seen but nursing indicated he been off BiPAP for 30-40 minutes to eat when the arrhythmia developed. He denied pleuritic pain. He denied wheezing or cough but has pain in his left chest with repositioning and movements due to fractured rib. He continues to be BiPAP dependent other than short intervals off for meals and medications. Objective Vital signs: Temperature 98.1 F 11/10/16 07:21 Pulse Rate 160 H 11/10/16 10:52 Respiratory Rate 17 11/10/16 11:47 Blood Pressure 118/82 11/10/16 10:52 Pulse Oximetry 97 11/10/16 11:47 BiPAP-FiO2 35% EXAM General-patient is drowsy and responses to questions are slightly muffled due to BiPAP mask HEENT-conjunctiva are slightly injected but sclera anicteric, oropharynx is clear Lungs-respirations are nonlabored on BiPAP, breath sounds are diminished throughout; barrel chested Cardiac-irregular rhythm, tachycardic, diminished heart tones Abd-mild abdominal distention, soft, minor tenderness to palpation in the right upper quadrant/epigastrium, bowel sounds present although diminished Ext-+2 puffy edema bilateral mid shins extending to the feet Skin-extensive bruising on the forearms and hands bilaterally, left upper extremity midline present Neuro-moving upper extremities spontaneously Psych-flat affect - Height/Weight/BMI: Height 1.73 m Weight 74.8 kg Body Mass Index 24.7 Results - Labs CBC & Chem 7: 11/10/16 03:57 11/10/16 03:57 Labs: D-dimer 243, troponin 0.76 Magnesium 2.5 - ABG Interpretation ABG results: 11/08/16 17:45 ABG pH 7.450 ABG pCO2 50 H ABG pO2 75 L ABG HCO3 35 H ABG Total CO2 36.3 H ABG O2 Saturation 96.0 ABG Base Excess 9.3 H - ECG Data Tracing #1 I reviewed this ECG and interpreted as documented below: Atrial fibrillation with rapid ventricular response-rate 165, nonspecific ST/T- wave abnormality, diffuse T-wave flattening Assessment and Plan (1) Respiratory failure Current visit: Yes Status: Acute (2) Pneumonia Current visit: Yes Status: Acute DVT Prophylaxis: SCD's, Lovenox GI Prophylaxis: Pepcid Resuscitation Status: Limited Code (intubate only) Assessment and Plan: Assessment Sepsis due to pneumonia - Leukocytosis, Tachycardia, tachypnea. POA Atrial fibrillation/RVR RLL Pneumonia - community acquired; sputum with Pseudomonas Acute on chronic respiratory failure COPD - acute exacerbation Extensive COPD/Emphysema - end stage disease Macrocytic anemia Multiple subacute rib and thoracic/lumbar vertebral compression fractures Postherpetic neuralgia Presumed osteoporosis Chronic steroid use HTN Anxiety Hypernatremia (POA) Hypokalemia (POA) Thrush Significant pulmonary debility Patient is critically ill with unstable cardiac rhythm and rate. 20 mg IV diltiazem given with minimal slowing of the heart rate at which point diltiazem drip ordered and patient was transferred to the CCU for further management. Amlodipine discontinued anticipating long-term conversion to diltiazem; magnesium level obtained in the event digitoxin will need to be added as a second agent for rate control. Potassium being replaced. Serial troponins being obtained, d-dimer obtained-not highly suggestive of triggering PE. Lovenox initiated at 40 mg daily in conjunction with SCDs. Echocardiogram to be obtained. Cardiology consultation may be needed. Findings discussed with Dr. Bolton. No change in respiratory status; day 2 cefepime for Pseudomonas pneumonia. With hemodynamic instability will not attempt to taper steroids today. Continue BiPAP/supplemental O2. Blood pressure elevated overnight, transient drop with onset of A. fib. Anticipate adding losartan in conjunction with calcium alexi. Prognosis guarded at best; palliative care consult versus hospice evaluation should be entertained prior to discharge. Patient is critically ill ([id number], [id number]) spent with the patient/on the unit with additional time in patient management off the unit. Sepsis Assessment - Evaluation Sepsis screening result: No Definite Risk Hospital Course Summary Disclaimer: The visit summary below is not to be considered part of the above Progress Note. Hospital Course: Assessment Sepsis syndrome due to pneumonia - Leukocytosis, Tachycardia, tachypnea. 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 Multiple subacute rib and thoracic/lumbar vertebral compression fractures Postherpetic neuralgia Presumed osteoporosis Chronic steroid use HTN Hypernatremia (POA) Hypokalemia (POA) Thrush Significant pulmonary debility 11/06/16-hospital admission Admit to inpatient status to the hospitalist team with Dr. Smalls attending. Given patient's significant lung disease and respiratory failure, it is expected his stay will be at least 2 overnights. IV azithromycin and IV Rocephin to cover for typical pathogens causing CAP. Methylprednisolone IV 125 mg every 6 hours, inhaled/nebulized budesonide, DuoNeb treatments and Acapella for respiratory symptoms. Continue home [place] dosage for his chronic pain related to recent rib fractures and postherpetic neuralgia. Will add Neurontin 300mg at night as well. SCDs and Lovenox for DVT prevention. Ongoing Telemetry to monitor tachycardia. Check ECHO due to elevated BNP - suspect significant pulmonary HTN due to his lung disease. Urinalysis, magnesium, and TSH for laboratory completeness. Consider RT and/or pulmonology consult. Discussed CODE STATUS with patient. He does not wish to receive CPR, however he is willing to be placed on a ventilator short-term should this be indicated given his respiratory condition. 11/07/16 Sepsis syndrome resolving. Continue Rocephin and azithromycin for pulmonary coverage (Day #2). Continue Solu-Medrol at 125mg IV q 6 hours. Neb treatments/acapella/Mucinex. Will consult Dr Bolton for pulmonary evaluation - not been able to see his energy attorney for ~1 year to due his severe pulmonary debility. ? if other medications or respiratory support would be beneficial. ? need for more help with ventilation. Concern that patient at end stage of his respiratory disease. Decrease IVF to 50cc/hr as patient taking oral in better. Sodium normalized at 143. Potassium increased to 3.4 - will give additional oral KCl and monitor. Nystatin started yesterday for thrush. Norvasc started yesterday due to significant BP elevation. Lorazepam as needed for anxiety/air hunger due to chronic respiratory failure. 11/08/16 Check CXR today - increasing oxygen needs (now on 4L) and weight is trending up. Fluid balance is positive. May need to consider stopping IVF and/or diuresing - Na level has improved to 144. K 3.4 - will give extra KDur. Chest discomfort this am, assoc. with increased dyspnea - will check trop. Echo pending. Hgb has trended down from 12 to 9.7 - check iron studies, vitamin B12, folate, check stool for occult blood. Platelets have also been trending down - will hold Lovenox for now. Continue Rocephin and azithromycin for pulmonary coverage (Day #3). Continue Solu-Medrol at 125mg IV q 6 hours. Neb treatments/acapella/Mucinex. Dr. Bolton has been consulted. High risk med: IV Ativan. 11/09/16 Antibiotics were changed to cefepime by pulmonology due to Pseudomonas growth. Sensitivities still pending. Patient requiring BiPAP constantly. Refusing to eat/drink due to respiratory distress. IV fluids were previously discontinued. Monitor for evidence of hydration. Will give another dose of Lasix 40 mg x 1 now given peripheral edema. Monitor I and O. Blood pressure is uncontrolled. Will increase amlodipine to 10 mg. May need to add another agent. Consider Romulo/ARB. Avoid beta alexi given his lung disease. Pulmonology will continue to follow. 11/10/16 Patient is critically ill with unstable cardiac rhythm and rate. 20 mg IV diltiazem given with minimal slowing of the heart rate at which point diltiazem drip ordered and patient was transferred to the CCU for further management. Amlodipine discontinued anticipating long-term conversion to diltiazem; magnesium level obtained in the event digitoxin will need to be added as a second agent for rate control. Potassium being replaced. Serial troponins being obtained, d-dimer obtained-not highly suggestive of triggering PE. Lovenox initiated at 40 mg daily in conjunction with SCDs. Echocardiogram to be obtained. Cardiology consultation may be needed. Findings discussed with Dr. Bolton. No change in respiratory status; day 2 cefepime for Pseudomonas pneumonia. With hemodynamic instability will not attempt to taper steroids today. Continue BiPAP/supplemental O2. Blood pressure elevated overnight, transient drop with onset of A. fib. Anticipate adding losartan in conjunction with calcium alexi.
[2016-11-10] MEDS: ENOXAPARIN 40 MG/0.4 ML INJECTION SQ SCH (17:23)
[2016-11-10] MEDS: PIPERACILLIN/TAZOBACTAM 3.375 GM in NS 100 ML IV SCH ×3 (17:26→21:35)
[2016-11-10] MEDS: DiltiaZEM IR 60 MG TABLET PO SCH ×2 (20:07→20:27)
[2016-11-10] MEDS: FAMOTIDINE 20 MG TABLET PO SCH (20:07)
[2016-11-10] MEDS: GABAPENTIN 300 MG CAPSULE PO SCH (20:07)
[2016-11-11] MEDS: SALINE FLUSH 10ml SYRINGE IVF PRN ×2 (01:08→03:48)
[2016-11-11] MEDS: PIPERACILLIN/TAZOBACTAM 3.375 GM in NS 100 ML IV SCH ×4 (03:46→21:27)
[2016-11-11] MEDS: METHYLPREDNISOLONE SOD SUCC 125mg/2ml INJECTION IVP SCH ×4 (03:48→21:25)
[2016-11-11] MEDS: DiltiaZEM IR 60 MG TABLET PO SCH (06:06)
[2016-11-11] MEDS: ALBUTEROL/IPRATROPIUM 2.5mg-0.5mg/3ml NEB AEROSOL SCH ×4 (06:45→21:57)
[2016-11-11] MEDS: BUDESONIDE INH.SOLN 0.5mg/2ml NEB AEROSOL SCH ×2 (06:46→21:56)
[2016-11-11] MEDS: MORPHINE SULFATE 2mg INJECTION IVP PRN ×3 (08:30→17:18)
[2016-11-11] MEDS: NYSTATIN 500,000 units/5 ml ORAL LIQUID PO SCH ×4 (09:19→21:25)
[2016-11-11] MEDS: CYANOCOBALAMIN (B-12) 1,000mcg/ml INJECTION IM SCH (09:20)
[2016-11-11] MEDS: FAMOTIDINE 20 MG TABLET PO SCH ×2 (09:20→21:26)
[2016-11-11] MEDS: LOSARTAN 50 MG TABLET PO SCH (09:22)
[2016-11-11] MEDS: GUAIFENESIN/D-METHORPHAN 600mg/30mg TABLET PO SCH ×2 (09:22→21:26)
[2016-11-11] MEDS: ENOXAPARIN 40 MG/0.4 ML INJECTION SQ SCH (09:22)
--- NOTE | 2016-11-11 11:01 | XRay Report ---
Indication: respiratory failure/pneumonia PROCEDURE: XR chest 1V: Encounter: Initial Comparison: November 09, 2016 Findings: Improving aeration of the left mid to lower lung field with chronic pulmonary abnormalities and emphysema. There is residual atelectatic change in the right lower lobe with small bilateral pleural effusions. Heart size and mediastinal contours are stable. Impression: Improving pneumonia .
[2016-11-11] MEDS ORDERED: LOSARTAN 50 MG TABLET PO ONE (14:28)
--- NOTE | 2016-11-11 17:49 | Progress Note ---
Subjective: Forrest was off BiPAP when seen this morning, his reported that he was off BiPAP for about 30 minutes for breakfast earlier. Patient reports he fatigues at the end of 30 minutes requiring resumption of BiPAP he doesn't think he can stay off of it any longer than that. He denies dyspnea currently and reports no chest pain, palpitations, nausea, or constipation. He is voiding spontaneously without difficulty. He denied lightheadedness but has not been out of bed and was very apprehensive about possibility about getting up in a chair. He converted back to sinus rhythm shortly after transfer to the CCU yesterday and has remained in sinus rhythm since that time. Objective Vital signs: Temperature 98.5 F 11/11/16 15:30 Pulse Rate 95 11/11/16 16:00 Respiratory Rate 18 11/11/16 15:30 Blood Pressure 157/97 H 11/11/16 15:30 Pulse Oximetry 95 11/11/16 15:30 EXAM General-NAD, alert, speech muffled by BiPAP mask HEENT-minor conjunctival injection, sclera anicteric, conjugate gaze Lungs-respirations nonlabored, diminished airflow, breath sounds slightly coarse at the right base laterally; FiO2 35% on BiPAP Cardiac-regular rhythm, S1-S2 Abd-soft, mildly distended, nontender, bowel sounds present Ext-distal lower extremity edema Neuro-moving upper extremities well Psych-flat affect - Rhythm: Normal Sinus Rhythm Height/Weight/BMI: Height 1.73 m Weight 75.1 kg Body Mass Index 24.7 Results - Labs CBC & Chem 7: 11/10/16 03:57 11/11/16 04:16 - ABG Interpretation ABG results: 11/08/16 17:45 ABG pH 7.450 ABG pCO2 50 H ABG pO2 75 L ABG HCO3 35 H ABG Total CO2 36.3 H ABG O2 Saturation 96.0 ABG Base Excess 9.3 H - Imaging and Cardiology Chest x-ray Status: image reviewed by me (patient is rotated, there is improved aeration in the left mid and lower field; minor atelectasis and COPD) Assessment and Plan (1) Respiratory failure Current visit: Yes Status: Acute (2) Pneumonia Current visit: Yes Status: Acute DVT Prophylaxis: SCD's, Lovenox GI Prophylaxis: Pepcid Resuscitation Status: Limited Code (no CPR-other measures okay) Assessment and Plan: Assessment Sepsis due to pneumonia - Leukocytosis, Tachycardia, tachypnea. POA Atrial fibrillation/RVR-converted to sinus rhythm within 24 hours RLL Pneumonia - community acquired; sputum with Pseudomonas-cefepime resistant Acute on chronic respiratory failure COPD - acute exacerbation Extensive COPD/Emphysema - end stage disease Macrocytic anemia Multiple subacute rib and thoracic/lumbar vertebral compression fractures Postherpetic neuralgia Presumed osteoporosis Chronic steroid use HTN Anxiety Hypernatremia (POA) Hypokalemia (POA) Thrush Significant pulmonary debility Converted back to sinus rhythm following initiation of Cardizem and slowing of heart rate yesterday. Heart rate in the 80s and 90s overnight and today. Blood pressure modestly elevated today following discontinuation of amlodipine; losartan initiated today at 50 mg daily, supplemental 50 mg dose given and daily dose increased to 100 mg daily effective tomorrow morning. Troponins obtained yesterday unremarkable. Stable to transfer back to the floor and resume prior care directed at stabilization of chronic respiratory disease. No overall change in respiratory status; Pseudomonas pneumonia treated with cefepime 11/09-11/10; switched to Zosyn 11/10 when found to be cefepime resistant. Continue Solu-Medrol at current dose today, if stable overnight will convert to prednisone tomorrow and begin slow titration Continue BiPAP/supplemental O2. Macrocytic anemia present, B-12 supplementation initiated 11/09 Hypernatremia improving, potassium improved today. Continue to monitor. PT/OT consults; began getting patient up to chair. Prognosis guarded at best; palliative care consult versus hospice evaluation should be entertained prior to discharge. Discussed with nursing and patient's ; chest x-ray and telemetry reviewed by myself, laboratory data reviewed. Remains at high risk for complications. Sepsis Assessment - Evaluation Sepsis screening result: No Definite Risk Hospital Course Summary Disclaimer: The visit summary below is not to be considered part of the above Progress Note. Hospital Course: Assessment Sepsis syndrome due to pneumonia - Leukocytosis, Tachycardia, tachypnea. 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 Multiple subacute rib and thoracic/lumbar vertebral compression fractures Postherpetic neuralgia Presumed osteoporosis Chronic steroid use HTN Hypernatremia (POA) Hypokalemia (POA) Thrush Significant pulmonary debility 11/06/16-hospital admission Admit to inpatient status to the hospitalist team with Dr. Smalls attending. Given patient's significant lung disease and respiratory failure, it is expected his stay will be at least 2 overnights. IV azithromycin and IV Rocephin to cover for typical pathogens causing CAP. Methylprednisolone IV 125 mg every 6 hours, inhaled/nebulized budesonide, DuoNeb treatments and Acapella for respiratory symptoms. Continue home [place] dosage for his chronic pain related to recent rib fractures and postherpetic neuralgia. Will add Neurontin 300mg at night as well. SCDs and Lovenox for DVT prevention. Ongoing Telemetry to monitor tachycardia. Check ECHO due to elevated BNP - suspect significant pulmonary HTN due to his lung disease. Urinalysis, magnesium, and TSH for laboratory completeness. Consider RT and/or pulmonology consult. Discussed CODE STATUS with patient. He does not wish to receive CPR, however he is willing to be placed on a ventilator short-term should this be indicated given his respiratory condition. 11/07/16 Sepsis syndrome resolving. Continue Rocephin and azithromycin for pulmonary coverage (Day #2). Continue Solu-Medrol at 125mg IV q 6 hours. Neb treatments/acapella/Mucinex. 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 ? if other medications or respiratory support would be beneficial. ? need for more help with ventilation. Concern that patient at end stage of his respiratory disease. Decrease IVF to 50cc/hr as patient taking oral in better. Sodium normalized at 143. Potassium increased to 3.4 - will give additional oral KCl and monitor. Nystatin started yesterday for thrush. Norvasc started yesterday due to significant BP elevation. Lorazepam as needed for anxiety/air hunger due to chronic respiratory failure. 11/08/16 Check CXR today - increasing oxygen needs (now on 4L) and weight is trending up. Fluid balance is positive. May need to consider stopping IVF and/or diuresing - Na level has improved to 144. K 3.4 - will give extra KDur. Chest discomfort this am, assoc. with increased dyspnea - will check trop. Echo pending. Hgb has trended down from 12 to 9.7 - check iron studies, vitamin B12, folate, check stool for occult blood. Platelets have also been trending down - will hold Lovenox for now. Continue Rocephin and azithromycin for pulmonary coverage (Day #3). Continue Solu-Medrol at 125mg IV q 6 hours. Neb treatments/acapella/Mucinex. Dr. Bolton has been consulted. High risk med: IV Ativan. 11/09/16 Antibiotics were changed to cefepime by pulmonology due to Pseudomonas growth. Sensitivities still pending. Patient requiring BiPAP constantly. Refusing to eat/drink due to respiratory distress. IV fluids were previously discontinued. Monitor for evidence of hydration. Will give another dose of Lasix 40 mg x 1 now given peripheral edema. Monitor I and O. Blood pressure is uncontrolled. Will increase amlodipine to 10 mg. May need to add another agent. Consider Romulo/ARB. Avoid beta alexi given his lung disease. Pulmonology will continue to follow. 11/10/16 Patient is critically ill with unstable cardiac rhythm and rate. 20 mg IV diltiazem given with minimal slowing of the heart rate at which point diltiazem drip ordered and patient was transferred to the CCU for further management. Amlodipine discontinued anticipating long-term conversion to diltiazem; magnesium level obtained in the event digitoxin will need to be added as a second agent for rate control. Potassium being replaced. Serial troponins being obtained, d-dimer obtained-not highly suggestive of triggering PE. Lovenox initiated at 40 mg daily in conjunction with SCDs. Echocardiogram to be obtained. Cardiology consultation may be needed. Findings discussed with Dr. Bolton. No change in respiratory status; day 2 cefepime for Pseudomonas pneumonia. With hemodynamic instability will not attempt to taper steroids today. Continue BiPAP/supplemental O2. Blood pressure elevated overnight, transient drop with onset of A. fib. Anticipate adding losartan in conjunction with calcium alexi. 11/11/16 Converted back to sinus rhythm following initiation of Cardizem and slowing of heart rate yesterday. Heart rate in the 80s and 90s overnight and today. Blood pressure modestly elevated today following discontinuation of amlodipine; losartan initiated today at 50 mg daily, supplemental 50 mg dose given and daily dose increased to 100 mg daily effective tomorrow morning. Troponins obtained yesterday unremarkable. Stable to transfer back to the floor and resume prior care directed at stabilization of chronic respiratory disease. No overall change in respiratory status; Pseudomonas pneumonia treated with cefepime 11/09-11/10; switched to Zosyn 11/10 when found to be cefepime resistant. Continue Solu-Medrol at current dose today, if stable overnight will convert to prednisone tomorrow and begin slow titration Continue BiPAP/supplemental O2. Macrocytic anemia present, B-12 supplementation initiated 11/09 Hypernatremia improving, potassium improved today. Continue to monitor. PT/OT consults; began getting patient up to chair.
[2016-11-11] MEDS: GABAPENTIN 300 MG CAPSULE PO SCH (21:26)
[2016-11-12] MEDS: NS FLUSH BAG 500ml IV PRN (00:19)
[2016-11-12] MEDS: METHYLPREDNISOLONE SOD SUCC 125mg/2ml INJECTION IVP SCH ×3 (03:07→14:36)
[2016-11-12] MEDS: PIPERACILLIN/TAZOBACTAM 3.375 GM in NS 100 ML IV SCH ×4 (03:08→20:44)
[2016-11-12] MEDS: SALINE FLUSH 10ml SYRINGE IVF PRN ×10 (03:08→20:44)
[2016-11-12] MEDS: ALBUTEROL/IPRATROPIUM 2.5mg-0.5mg/3ml NEB AEROSOL SCH ×4 (06:36→23:09)
[2016-11-12] MEDS: BUDESONIDE INH.SOLN 0.5mg/2ml NEB AEROSOL SCH (06:36)
[2016-11-12] MEDS: ENOXAPARIN 40 MG/0.4 ML INJECTION SQ SCH (08:19)
[2016-11-12] MEDS: CYANOCOBALAMIN (B-12) 1,000mcg/ml INJECTION IM SCH (08:21)
[2016-11-12] MEDS: NYSTATIN 500,000 units/5 ml ORAL LIQUID PO SCH ×4 (08:28→20:43)
[2016-11-12] MEDS: GUAIFENESIN/D-METHORPHAN 600mg/30mg TABLET PO SCH ×2 (09:19→20:43)
[2016-11-12] MEDS: FAMOTIDINE 20 MG TABLET PO SCH ×2 (09:20→20:43)
[2016-11-12] MEDS: LOSARTAN 100 MG TABLET PO SCH (09:21)
[2016-11-12] MEDS: MORPHINE SULFATE 2mg INJECTION IVP PRN ×3 (10:11→17:26)
--- NOTE | 2016-11-12 15:23 | Progress Note ---
Subjective: Mr. Grider was seen with his and multiple family members at bedside. He's been off BiPAP most of the morning and early afternoon. He reports having mild dyspnea requiring administration of morphine and Ativan to help control symptoms. Cough is improving progressively she reports minimal sputum production. He denied lightheadedness, nausea, constipation, or fever. His appetite is poor and he reports becoming fatigued while eating. He was unable to work with physical therapy today but plans to do so tomorrow. Objective Vital signs: Temperature 96.4 F L 11/12/16 07:30 Pulse Rate 96 11/12/16 08:28 Respiratory Rate 16 11/12/16 15:04 Blood Pressure 155/96 H 11/12/16 07:30 Pulse Oximetry 98 11/12/16 15:04 EXAM General-NAD, alert, mildly dyspneic when speaking HEENT-mild conjunctival injection, sclera anicteric, oral membranes generally clear although there are some white streaks along the lateral margins of the time Lungs-respirations are mildly labored airflow diminished throughout, breath sounds are relatively clear, no wheezing is present currently; barrel chested; on 4 L per nasal cannula Cardiac-regular rhythm, S1-S2 Abd-abdomen is soft, moderately distended, nontender, bowel sounds present Ext-+1 edema dorsal feet bilaterally Neuro-MAEW Psych-anxious - Rhythm: Normal Sinus Rhythm Height/Weight/BMI: Height 1.73 m Weight 77.1 kg Body Mass Index 24.7 Results - Labs CBC & Chem 7: 11/12/16 04:19 11/12/16 04:19 - ABG Interpretation ABG results: 11/08/16 17:45 ABG pH 7.450 ABG pCO2 50 H ABG pO2 75 L ABG HCO3 35 H ABG Total CO2 36.3 H ABG O2 Saturation 96.0 ABG Base Excess 9.3 H Assessment and Plan (1) Respiratory failure Current visit: Yes Status: Acute (2) Pneumonia Current visit: Yes Status: Acute DVT Prophylaxis: SCD's, Lovenox GI Prophylaxis: Pepcid Resuscitation Status: Limited Code (no CPR; other interventions okay) Assessment and Plan: Assessment Sepsis due to pneumonia - Leukocytosis, Tachycardia, tachypnea. POA Atrial fibrillation/RVR-converted to sinus rhythm within 24 hours RLL Pneumonia - community acquired; sputum with Pseudomonas-cefepime resistant Acute on chronic respiratory failure COPD - acute exacerbation Extensive COPD/Emphysema - end stage disease Macrocytic anemia Multiple subacute rib and thoracic/lumbar vertebral compression fractures Postherpetic neuralgia Presumed osteoporosis Chronic steroid use HTN Anxiety Hypernatremia (POA) Hypokalemia (POA) Thrush Significant pulmonary debility Remains in sinus rhythm by review of telemetry strips, single or-5P CT overnight. Blood pressure modestly elevated today with last 2 readings 155/96 and 139/86. Continue losartan 100 mg daily and diltiazem CD 240 mg daily-heart rate will permit increasing calcium alexi dose if needed. Slow improvement in respiratory status; Pseudomonas pneumonia treated with cefepime 11/09-11/10; switched to Zosyn 11/10 when found to be cefepime resistant. Anticipate 7 days Zosyn (currently day 3) Convert from Solu-Medrol to prednisone 60 mg daily. Continue BiPAP/supplemental O2. Macrocytic anemia present, B-12 supplementation initiated 11/09 Persistent hypernatremia, patient reports improved oral intake since tolerating increased time off BiPAP. Platelet count dropping-reassess tomorrow before discontinuing Lovenox. HIT Ab with a.m. labs. PT/OT consults; began getting patient up to chair. Prognosis guarded at best; palliative care consult versus hospice evaluation should be entertained prior to discharge. Remains at high risk for complications. Sepsis Assessment - Evaluation Sepsis screening result: No Definite Risk Hospital Course Summary Disclaimer: The visit summary below is not to be considered part of the above Progress Note. Hospital Course: Assessment Sepsis syndrome due to pneumonia - Leukocytosis, Tachycardia, tachypnea. 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 Multiple subacute rib and thoracic/lumbar vertebral compression fractures Postherpetic neuralgia Presumed osteoporosis Chronic steroid use HTN Hypernatremia (POA) Hypokalemia (POA) Thrush Significant pulmonary debility 11/06/16-hospital admission Admit to inpatient status to the hospitalist team with Dr. Smalls attending. Given patient's significant lung disease and respiratory failure, it is expected his stay will be at least 2 overnights. IV azithromycin and IV Rocephin to cover for typical pathogens causing CAP. Methylprednisolone IV 125 mg every 6 hours, inhaled/nebulized budesonide, DuoNeb treatments and Acapella for respiratory symptoms. Continue home [place] dosage for his chronic pain related to recent rib fractures and postherpetic neuralgia. Will add Neurontin 300mg at night as well. SCDs and Lovenox for DVT prevention. Ongoing Telemetry to monitor tachycardia. Check ECHO due to elevated BNP - suspect significant pulmonary HTN due to his lung disease. Urinalysis, magnesium, and TSH for laboratory completeness. Consider RT and/or pulmonology consult. Discussed CODE STATUS with patient. He does not wish to receive CPR, however he is willing to be placed on a ventilator short-term should this be indicated given his respiratory condition. 11/07/16 Sepsis syndrome resolving. Continue Rocephin and azithromycin for pulmonary coverage (Day #2). Continue Solu-Medrol at 125mg IV q 6 hours. Neb treatments/acapella/Mucinex. 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 ? if other medications or respiratory support would be beneficial. ? need for more help with ventilation. Concern that patient at end stage of his respiratory disease. Decrease IVF to 50cc/hr as patient taking oral in better. Sodium normalized at 143. Potassium increased to 3.4 - will give additional oral KCl and monitor. Nystatin started yesterday for thrush. Norvasc started yesterday due to significant BP elevation. Lorazepam as needed for anxiety/air hunger due to chronic respiratory failure. 11/08/16 Check CXR today - increasing oxygen needs (now on 4L) and weight is trending up. Fluid balance is positive. May need to consider stopping IVF and/or diuresing - Na level has improved to 144. K 3.4 - will give extra KDur. Chest discomfort this am, assoc. with increased dyspnea - will check trop. Echo pending. Hgb has trended down from 12 to 9.7 - check iron studies, vitamin B12, folate, check stool for occult blood. Platelets have also been trending down - will hold Lovenox for now. Continue Rocephin and azithromycin for pulmonary coverage (Day #3). Continue Solu-Medrol at 125mg IV q 6 hours. Neb treatments/acapella/Mucinex. Dr. Bolton has been consulted. High risk med: IV Ativan. 11/09/16 Antibiotics were changed to cefepime by pulmonology due to Pseudomonas growth. Sensitivities still pending. Patient requiring BiPAP constantly. Refusing to eat/drink due to respiratory distress. IV fluids were previously discontinued. Monitor for evidence of hydration. Will give another dose of Lasix 40 mg x 1 now given peripheral edema. Monitor I and O. Blood pressure is uncontrolled. Will increase amlodipine to 10 mg. May need to add another agent. Consider Romulo/ARB. Avoid beta alexi given his lung disease. Pulmonology will continue to follow. 11/10/16 Patient is critically ill with unstable cardiac rhythm and rate. 20 mg IV diltiazem given with minimal slowing of the heart rate at which point diltiazem drip ordered and patient was transferred to the CCU for further management. Amlodipine discontinued anticipating long-term conversion to diltiazem; magnesium level obtained in the event digitoxin will need to be added as a second agent for rate control. Potassium being replaced. Serial troponins being obtained, d-dimer obtained-not highly suggestive of triggering PE. Lovenox initiated at 40 mg daily in conjunction with SCDs. Echocardiogram to be obtained. Cardiology consultation may be needed. Findings discussed with Dr. Bolton. No change in respiratory status; day 2 cefepime for Pseudomonas pneumonia. With hemodynamic instability will not attempt to taper steroids today. Continue BiPAP/supplemental O2. Blood pressure elevated overnight, transient drop with onset of A. fib. Anticipate adding losartan in conjunction with calcium alexi. 11/11/16 Converted back to sinus rhythm following initiation of Cardizem and slowing of heart rate yesterday. Heart rate in the 80s and 90s overnight and today. Blood pressure modestly elevated today following discontinuation of amlodipine; losartan initiated today at 50 mg daily, supplemental 50 mg dose given and daily dose increased to 100 mg daily effective tomorrow morning. Troponins obtained yesterday unremarkable. Stable to transfer back to the floor and resume prior care directed at stabilization of chronic respiratory disease. No overall change in respiratory status; Pseudomonas pneumonia treated with cefepime 11/09-11/10; switched to Zosyn 11/10 when found to be cefepime resistant. Continue Solu-Medrol at current dose today, if stable overnight will convert to prednisone tomorrow and begin slow titration Continue BiPAP/supplemental O2. Macrocytic anemia present, B-12 supplementation initiated 11/09 Hypernatremia improving, potassium improved today. Continue to monitor. PT/OT consults; began getting patient up to chair. 11/12/16 Remains in sinus rhythm by review of telemetry strips, single or-5P CT overnight. Blood pressure modestly elevated today with last 2 readings 155/96 and 139/86. Continue losartan 100 mg daily and diltiazem CD 240 mg daily-heart rate will permit increasing calcium alexi dose if needed. Slow improvement in respiratory status; Pseudomonas pneumonia treated with cefepime 11/09-11/10; switched to Zosyn 11/10 when found to be cefepime resistant. Anticipate 7 days Zosyn (currently day 3) Convert from Solu-Medrol to prednisone 60 mg daily. Continue BiPAP/supplemental O2. Macrocytic anemia present, B-12 supplementation initiated 11/09 Persistent hypernatremia, patient reports improved oral intake since tolerating increased time off BiPAP. Platelet count dropping-reassess tomorrow before discontinuing Lovenox. HIT Ab with a.m. labs.
[2016-11-12] MEDS: PredniSONE 20 MG TABLET PO SCH (16:00)
[2016-11-12] MEDS: GABAPENTIN 300 MG CAPSULE PO SCH (20:43)
[2016-11-13] MEDS: NS FLUSH BAG 500ml IV PRN (02:29)
[2016-11-13] MEDS: PIPERACILLIN/TAZOBACTAM 3.375 GM in NS 100 ML IV SCH ×4 (02:30→21:12)
[2016-11-13] MEDS: SALINE FLUSH 10ml SYRINGE IVF PRN ×5 (03:21→13:41)
[2016-11-13] MEDS: MORPHINE SULFATE 2mg INJECTION IVP PRN ×4 (04:26→15:22)
[2016-11-13] MEDS: BUDESONIDE INH.SOLN 0.5mg/2ml NEB AEROSOL SCH ×2 (08:04→20:05)
[2016-11-13] MEDS: ALBUTEROL/IPRATROPIUM 2.5mg-0.5mg/3ml NEB AEROSOL SCH ×4 (08:04→20:04)
[2016-11-13] MEDS: PredniSONE 20 MG TABLET PO SCH (08:39)
[2016-11-13] MEDS: NYSTATIN 500,000 units/5 ml ORAL LIQUID PO SCH ×4 (08:39→21:12)
[2016-11-13] MEDS: ENOXAPARIN 40 MG/0.4 ML INJECTION SQ SCH (08:39)
[2016-11-13] MEDS: LOSARTAN 100 MG TABLET PO SCH (08:39)
[2016-11-13] MEDS: FAMOTIDINE 20 MG TABLET PO SCH ×2 (08:39→21:12)
[2016-11-13] MEDS: GUAIFENESIN/D-METHORPHAN 600mg/30mg TABLET PO SCH ×2 (08:40→21:12)
[2016-11-13] MEDS: CYANOCOBALAMIN (B-12) 1,000mcg/ml INJECTION IM SCH (08:43)
--- NOTE | 2016-11-13 16:02 | Pulmonology Progress Note ---
Subjective Principal diagnosis: SOB Interval history: now off bipap for periods of time. visibly short of breath with increased work of breathing. talking with Dr Lal and myself regarding end of life care issues. he doesn't seem too interested in considering hospice care and just "wants to get back to where he was" Exam Vital signs: Temperature 96.4 F L 11/13/16 07:23 Pulse Rate 93 11/13/16 07:23 Respiratory Rate 17 11/13/16 11:15 Blood Pressure 183/109 H 11/13/16 07:23 Pulse Oximetry 99 11/13/16 11:15 - Constitutional mild distress, disheveled Comments: cushingoid features - Routine Respiratory Exam Present: accessory muscle use, dyspnea, decreased breath sounds, prolonged expiratory phase - Routine Cardiovascular Exam Present: RRR - Routine Abdominal Exam Present: soft. Absent: guarding Progress Note-A&P (1) Acute on chronic respiratory failure with hypoxia and hypercapnia Status: Acute Assessment and plan: end stage COPD. I would recommend home ventilator to mask at night and prn. he is very high risk for rehospitalization, morbidity and related to respiratory failure. These risks are decreased by the use of home vent to mask. Current Visit: Yes (2) Acute exacerbation of chronic obstructive pulmonary disease (COPD) Status: Acute Assessment and plan: End stage, steroid dependent COPD. Neb treatments don't seem to make a bid difference. Current Visit: Yes (3) Supraventricular tachycardia Status: Acute Assessment and plan: controlled Current Visit: Yes - Time Spent With Patient Total time spent is greater than 50% in coordination of care (as documented) at patient's floor/unit and/or counseling patient: less than 15 minutes Sepsis Assessment - Evaluation Sepsis screening result: No Definite Risk
--- NOTE | 2016-11-13 17:47 | Progress Note ---
<Maria Isabel Pro - Last Filed: 11/13/16 17:43> Subjective: Forrest was awake, lying in bed without his BiPAP mask on. His , Shruti, and his mother were present. They all feel he is doing better. Ulises feels like he is tolerating more and more time off of the BiPAP. However, any activity, even the bed bath, produces dyspnea that requires the mask to be placed. He tried working with PT today - he wanted to show them how he gets up at home in his personal bed, but he became too fatigued and dyspneic and wasn't able to sit up. His goal is to get into the bedside chair, and he wants to try again tomorrow. He's trying to move and exercise his legs in bed - it helps now that the SCDs have been removed. He thinks his appetite is doing better, but hasn't been able to feed himself here - he feels like the hospital bed is the limiting factor because he can feed himself at home. He denies any chest pain. He does have anxiety/panic and the Ativan/Morphine are helpful. His rib pain has essentially resolved. He denies any oral sores/lesions or thrush. He denies constipation. His mother reports that he doesn't look as edematous. Objective Vital signs: Temperature 97.6 F 11/13/16 16:00 Pulse Rate 101 H 11/13/16 16:00 Respiratory Rate 18 11/13/16 16:00 Blood Pressure 153/103 H 11/13/16 16:00 Pulse Oximetry 98 11/13/16 16:00 Rhythm: Normal Sinus Rhythm Height/Weight/BMI: Height 1.73 m Weight 75.3 kg Body Mass Index 24.7 - Constitutional Present: mild distress, well developed - Routine HEENT Exam Head: Present: normocephalic Eye: Absent: conjunctival icterus ENT: Present: mucous membranes moist, oropharynx clear - Routine Respiratory Exam Present: prolonged expiratory phase, diminished air movement Comments: barrel chest - Routine Cardiovascular Exam Present: RRR, S1, S2 - Routine Abdominal Exam Present: soft, normoactive bowel sounds, non distended, non tender - Routine Extremities Exam Present: edema (b/l feet), pulses intact - Routine Musculoskeletal Exam Musculoskeletal: Absent: joint swelling - Routine Skin Exam Present: intact, warm, ecchymosis (to both arms) - Routine Neurological Exam Present: alert, oriented X3, CN II-XII intact, normal speech - Routine Psychiatric Exam Present: normal affect, normal thought process, cooperative Results - Labs CBC & Chem 7: 11/13/16 03:43 11/13/16 03:43 - ABG Interpretation ABG results: 11/08/16 17:45 ABG pH 7.450 ABG pCO2 50 H ABG pO2 75 L ABG HCO3 35 H ABG Total CO2 36.3 H ABG O2 Saturation 96.0 ABG Base Excess 9.3 H Assessment and Plan (1) Respiratory failure Current visit: Yes Status: Acute (2) Pneumonia Current visit: Yes Status: Acute Assessment and Plan: Assessment Sepsis due to pneumonia - Leukocytosis, Tachycardia, tachypnea. POA Atrial fibrillation/RVR-converted to sinus rhythm within 24 hours RLL Pneumonia - community acquired; sputum with Pseudomonas-cefepime resistant Acute on chronic respiratory failure COPD - acute exacerbation Extensive COPD/Emphysema - end stage disease Macrocytic anemia Multiple subacute rib and thoracic/lumbar vertebral compression fractures Postherpetic neuralgia Presumed osteoporosis Chronic steroid use HTN Anxiety Hypernatremia (POA) Hypokalemia (POA) Thrush Significant pulmonary debility Plan I reviewed diagnoses with Forrest, his Shruti, and his mother: End-stage COPD with life threatening illness and complications including sepsis, pneumonia , A-fib with RVR, and immunocompromised status. I let them know that while his pneumonia looks better (but not resolved), his underlying status is still very serious and medically we have little more to offer him; nor do we expect his condition to improve much. This topic brought a response of great excitement from his , who verbally and emphatically exclaimed "Lola Brandon, the end is near!" with a smile on her face. When I asked her to explain her reaction, she replied that she believes that he will have a miracle, and will surprise all of us and Ulises will walk out of the hospital completely healed. Ulises and his mother also shared this enthusiasm, and both believed that he will completely recover from both his pneumonia and his end-stage lung disease. I again offered the concept of palliative care - focusing on symptom control, particularly for breathing. Both Ulises and Shruti were very quiet, and did not offer much response. I did not feel they were at a point emotionally to discuss hospice. I reviewed his limitations - unable to ambulate, feed himself, sit upright, perform self-cares, undergo bed bath without needing BiPAP - according to the Palliative Performance Scale he is currently at best 30%; at home he may have been up to 40%, both of which are associated with a very limited life expectancy. I again reviewed what his wishes are if he decompensates - he wants full, aggressive care. He currently rates his quality of life as excellent and wants to keep on living. I let them know that odds of survival if he codes are very slim, and the chance for recovery is even less than that. We reviewed discharge planning. They are opposed to skilled care and he intends on going home. His denies any caregiver stress/strain. Her vinnie is a major source of strength. She is hopeful he won't need BiPAP when he goes home. We reviewed what palliative care might look like at home - could possibly send him home with Ativan at a reduced frequency; morphine will require additional consideration given risk for respiratory suppression. His reports that she temporarily increases the flow rate at home if he becomes more short of breath. Oral intake is improving - Na still mildly elevated. Shruti reports that he has been drinking fluids much better today. BP has still been elevated - diastolics frequently range 90-100+. HR has not been bradycardic. Will increase diltiazem to 360 mg daily. Continue Zosyn (day 4 of 7) for pseudomonas pneumonia; Prednisone 60 mg daily; BiPAP; Nebs; and O2. Case management has filled out financial applications for home BiPAP. To be reassessed by PT in am. Palliative care discussion with patient and family: 30 minutes. Case discussed with Dr. Lal. Sepsis Assessment - Evaluation Sepsis screening result: No Definite Risk Hospital Course Summary Disclaimer: The visit summary below is not to be considered part of the above Progress Note. Hospital Course: Assessment Sepsis syndrome due to pneumonia - Leukocytosis, Tachycardia, tachypnea. 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 Multiple subacute rib and thoracic/lumbar vertebral compression fractures Postherpetic neuralgia Presumed osteoporosis Chronic steroid use HTN Hypernatremia (POA) Hypokalemia (POA) Thrush Significant pulmonary debility 11/06/16-hospital admission Admit to inpatient status to the hospitalist team with Dr. Smalls attending. Given patient's significant lung disease and respiratory failure, it is expected his stay will be at least 2 overnights. IV azithromycin and IV Rocephin to cover for typical pathogens causing CAP. Methylprednisolone IV 125 mg every 6 hours, inhaled/nebulized budesonide, DuoNeb treatments and Acapella for respiratory symptoms. Continue home [place] dosage for his chronic pain related to recent rib fractures and postherpetic neuralgia. Will add Neurontin 300mg at night as well. SCDs and Lovenox for DVT prevention. Ongoing Telemetry to monitor tachycardia. Check ECHO due to elevated BNP - suspect significant pulmonary HTN due to his lung disease. Urinalysis, magnesium, and TSH for laboratory completeness. Consider RT and/or pulmonology consult. Discussed CODE STATUS with patient. He does not wish to receive CPR, however he is willing to be placed on a ventilator short-term should this be indicated given his respiratory condition. 11/07/16 Sepsis syndrome resolving. Continue Rocephin and azithromycin for pulmonary coverage (Day #2). Continue Solu-Medrol at 125mg IV q 6 hours. Neb treatments/acapella/Mucinex. Will consult Dr Bolton for pulmonary evaluation - not been able to see his rn correctional for ~1 year to due his severe pulmonary debility. ? if other medications or respiratory support would be beneficial. ? need for more help with ventilation. Concern that patient at end stage of his respiratory disease. Decrease IVF to 50cc/hr as patient taking oral in better. Sodium normalized at 143. Potassium increased to 3.4 - will give additional oral KCl and monitor. Nystatin started yesterday for thrush. Norvasc started yesterday due to significant BP elevation. Lorazepam as needed for anxiety/air hunger due to chronic respiratory failure. 11/08/16 Check CXR today - increasing oxygen needs (now on 4L) and weight is trending up. Fluid balance is positive. May need to consider stopping IVF and/or diuresing - Na level has improved to 144. K 3.4 - will give extra KDur. Chest discomfort this am, assoc. with increased dyspnea - will check trop. Echo pending. Hgb has trended down from 12 to 9.7 - check iron studies, vitamin B12, folate, check stool for occult blood. Platelets have also been trending down - will hold Lovenox for now. Continue Rocephin and azithromycin for pulmonary coverage (Day #3). Continue Solu-Medrol at 125mg IV q 6 hours. Neb treatments/acapella/Mucinex. Dr. Bolton has been consulted. High risk med: IV Ativan. 11/09/16 Antibiotics were changed to cefepime by pulmonology due to Pseudomonas growth. Sensitivities still pending. Patient requiring BiPAP constantly. Refusing to eat/drink due to respiratory distress. IV fluids were previously discontinued. Monitor for evidence of hydration. Will give another dose of Lasix 40 mg x 1 now given peripheral edema. Monitor I and O. Blood pressure is uncontrolled. Will increase amlodipine to 10 mg. May need to add another agent. Consider Romulo/ARB. Avoid beta alexi given his lung disease. Pulmonology will continue to follow. 11/10/16 Patient is critically ill with unstable cardiac rhythm and rate. 20 mg IV diltiazem given with minimal slowing of the heart rate at which point diltiazem drip ordered and patient was transferred to the CCU for further management. Amlodipine discontinued anticipating long-term conversion to diltiazem; magnesium level obtained in the event digitoxin will need to be added as a second agent for rate control. Potassium being replaced. Serial troponins being obtained, d-dimer obtained-not highly suggestive of triggering PE. Lovenox initiated at 40 mg daily in conjunction with SCDs. Echocardiogram to be obtained. Cardiology consultation may be needed. Findings discussed with Dr. Bolton. No change in respiratory status; day 2 cefepime for Pseudomonas pneumonia. With hemodynamic instability will not attempt to taper steroids today. Continue BiPAP/supplemental O2. Blood pressure elevated overnight, transient drop with onset of A. fib. Anticipate adding losartan in conjunction with calcium alexi. 11/11/16 Converted back to sinus rhythm following initiation of Cardizem and slowing of heart rate yesterday. Heart rate in the 80s and 90s overnight and today. Blood pressure modestly elevated today following discontinuation of amlodipine; losartan initiated today at 50 mg daily, supplemental 50 mg dose given and daily dose increased to 100 mg daily effective tomorrow morning. Troponins obtained yesterday unremarkable. Stable to transfer back to the floor and resume prior care directed at stabilization of chronic respiratory disease. No overall change in respiratory status; Pseudomonas pneumonia treated with cefepime 11/09-11/10; switched to Zosyn 11/10 when found to be cefepime resistant. Continue Solu-Medrol at current dose today, if stable overnight will convert to prednisone tomorrow and begin slow titration Continue BiPAP/supplemental O2. Macrocytic anemia present, B-12 supplementation initiated 11/09 Hypernatremia improving, potassium improved today. Continue to monitor. PT/OT consults; began getting patient up to chair. 11/12/16 Remains in sinus rhythm by review of telemetry strips, single or-5P CT overnight. Blood pressure modestly elevated today with last 2 readings 155/96 and 139/86. Continue losartan 100 mg daily and diltiazem CD 240 mg daily-heart rate will permit increasing calcium alexi dose if needed. Slow improvement in respiratory status; Pseudomonas pneumonia treated with cefepime 11/09-11/10; switched to Zosyn 11/10 when found to be cefepime resistant. Anticipate 7 days Zosyn (currently day 3) Convert from Solu-Medrol to prednisone 60 mg daily. Continue BiPAP/supplemental O2. Macrocytic anemia present, B-12 supplementation initiated 11/09 Persistent hypernatremia, patient reports improved oral intake since tolerating increased time off BiPAP. Platelet count dropping-reassess tomorrow before discontinuing Lovenox. HIT Ab with a.m. labs. 11/13/16 I reviewed diagnoses with Forrest, his Shruti, and his mother: End-stage COPD with life threatening illness and complications including sepsis, pneumonia , A-fib with RVR, and immunocompromised status. I let them know that while his pneumonia looks better (but not resolved), his underlying status is still very serious and medically we have little more to offer him; nor do we expect his condition to improve much. This topic brought a response of great excitement from his , who verbally and emphatically exclaimed "Lola Brandon, the end is near!" with a smile on her face. When I asked her to explain her reaction, she replied that she believes that he will have a miracle, and will surprise all of us and Ulises will walk out of the hospital completely healed. Ulises and his mother also shared this enthusiasm, and both believed that he will completely recover from both his pneumonia and his end-stage lung disease. I again offered the concept of palliative care - focusing on symptom control, particularly for breathing. Both Ulises and Shruti were very quiet, and did not offer much response. I did not feel they were at a point emotionally to discuss hospice. I reviewed his limitations - unable to ambulate, feed himself, sit upright, perform self-cares, undergo bed bath without needing BiPAP - according to the Palliative Performance Scale he is currently at best 30%; at home he may have been up to 40%, both of which are associated with a very limited life expectancy. I again reviewed what his wishes are if he decompensates - he wants full, aggressive care. He currently rates his quality of life as excellent and wants to keep on living. I let them know that odds of survival if he codes are very slim, and the chance for recovery is even less than that. We reviewed discharge planning. They are opposed to skilled care and he intends on going home. His denies any caregiver stress/strain. Her vinnie is a major source of strength. She is hopeful he won't need BiPAP when he goes home. We reviewed what palliative care might look like at home - could possibly send him home with Ativan at a reduced frequency; morphine will require additional consideration given risk for respiratory suppression. His reports that she temporarily increases the flow rate at home if he becomes more short of breath. Oral intake is improving - Na still mildly elevated. Shruti reports that he has been drinking fluids much better today. BP has still been elevated - diastolics frequently range 90-100+. HR has not been bradycardic. Will increase diltiazem to 360 mg daily. Continue Zosyn (day 4 of 7) for pseudomonas pneumonia; Prednisone 60 mg daily; BiPAP; Nebs; and O2. Case management has filled out financial applications for home BiPAP. <Naz Lal - Last Filed: 11/13/16 18:54> Objective Vital signs: Temperature 97.6 F 11/13/16 16:00 Pulse Rate 101 H 11/13/16 16:00 Respiratory Rate 18 11/13/16 16:00 Blood Pressure 153/103 H 11/13/16 16:00 Pulse Oximetry 98 11/13/16 16:00 Height/Weight/BMI: Height 1.73 m Weight 75.3 kg Body Mass Index 24.7 Results - Labs CBC & Chem 7: 11/13/16 03:43 11/13/16 03:43 - ABG Interpretation ABG results: 11/08/16 17:45 ABG pH 7.450 ABG pCO2 50 H ABG pO2 75 L ABG HCO3 35 H ABG Total CO2 36.3 H ABG O2 Saturation 96.0 ABG Base Excess 9.3 H Assessment and Plan (1) Respiratory failure Current visit: Yes Status: Acute (2) Pneumonia Current visit: Yes Status: Acute Assessment and Plan: I have independently evaluated and examined this patient. I reviewed the chart, the patient's history, and the CAFETER[employer] CLERK/PA's documented findings as above. We discussed and formulated the assessment and plan as above with additions as below: Forrest was seen earlier today without family members present. He reported using BiPAP overnight but was off ventilatory assistance at time of visit. He has been on and off BiPAP today after being off of BiPAP most of the day yesterday. He reports his breathing is a little bit better than when he was hospitalized and that cough is slowly improving. His appetite is poor and he acknowledges that he becomes short of breath and fatigues when eating. He denied pain. He was able to sit part way up in the bed but could not get to the edge of the bed with physical therapy earlier today. Respirations mildly labored with diminished inspiratory effort, breath sounds clear although airflow is poor. Regular cardiac rhythm-telemetry reviewed sinus rhythm/low-grade sinus tachycardia Digits are clubbed. Patient goals reviewed and concept of palliative care introduced (prior to Maria Isabel 's conversation with the patient). Patient largely ignored my discussion of palliation and potential that it would benefit him. was not present at this time. Day 4 Zosyn for Pseudomonas pneumonia. Slow clinical improvement although has advanced disease. Will add oral Ativan and Roxanol for symptom control to begin converting from IV therapy. BNP improved from prior assessment. Repeat chest x-ray in a.m., discussed with Dr. Bolton/nursing/case management. Telemetry reviewed by myself. Hospital Course Summary Disclaimer: The visit summary below is not to be considered part of the above Progress Note.
[2016-11-13] MEDS: GABAPENTIN 300 MG CAPSULE PO SCH (21:12)
[2016-11-14] MEDS: SALINE FLUSH 10ml SYRINGE IVF PRN ×2 (02:59→20:06)
[2016-11-14] MEDS: PIPERACILLIN/TAZOBACTAM 3.375 GM in NS 100 ML IV SCH ×4 (02:59→21:43)
[2016-11-14] MEDS: ALBUTEROL/IPRATROPIUM 2.5mg-0.5mg/3ml NEB AEROSOL SCH ×4 (08:17→19:40)
[2016-11-14] MEDS: BUDESONIDE INH.SOLN 0.5mg/2ml NEB AEROSOL SCH ×2 (08:17→19:40)
[2016-11-14] MEDS: LORazepam 0.5 MG TABLET PO PRN ×2 (09:19→14:08)
[2016-11-14] MEDS: NYSTATIN 500,000 units/5 ml ORAL LIQUID PO SCH ×4 (10:18→21:41)
[2016-11-14] MEDS: LOSARTAN 100 MG TABLET PO SCH (10:18)
[2016-11-14] MEDS: FAMOTIDINE 20 MG TABLET PO SCH ×2 (10:18→20:06)
[2016-11-14] MEDS: GUAIFENESIN/D-METHORPHAN 600mg/30mg TABLET PO SCH ×2 (10:18→20:06)
[2016-11-14] MEDS: DiltiaZEM CD 360 MG CAPSULE PO SCH (10:19)
[2016-11-14] MEDS: PredniSONE 20 MG TABLET PO SCH (10:19)
[2016-11-14] MEDS: CYANOCOBALAMIN (B-12) 1,000mcg/ml INJECTION IM SCH (10:30)
[2016-11-14] MEDS: MORPHINE SULFATE 10mg/0.5ml ORAL LIQ SL PRN (11:33)
--- NOTE | 2016-11-14 15:30 | Progress Note ---
<Damari Perrin - Last Filed: 11/14/16 17:10> Subjective: Patient is seen lying in bed with his BiPAP in place. His is at his bedside. He is able to respond to questions, but his voice is weak and it takes such an effort for him to talk that his answers for him most of the time. She reports he's been sleeping much more today. She wonders if it's because of the switch from taking his Ativan and morphine by mouth instead of IV today. reports he's been off of the BiPAP a decent amount of time yesterday, but today, he has required it most of the day. It's difficult for him to eat and drink, because he gets so short of breath when he has to go without the BiPAP. He does not complain of pain. His bowels are moving. He has been able to cough up some dark/black colored sputum. Objective Vital signs: Temperature 99.2 F 11/14/16 08:00 Pulse Rate 90 11/14/16 08:00 Respiratory Rate 14 11/14/16 12:01 Blood Pressure 178/119 H 11/14/16 08:00 Pulse Oximetry 96 11/14/16 12:01 Height/Weight/BMI: Height 1.73 m Weight 76.9 kg Body Mass Index 24.7 - Constitutional Present: mild distress, obese, disheveled, cooperative - Routine HEENT Exam Head: Present: cushingoid faces - Routine Respiratory Exam Present: accessory muscle use, decreased breath sounds, distant breath sounds Comments: He is moving more air on exam today and when I examined him last week. - Routine Cardiovascular Exam Present: RRR Comments: Heart sounds distant - Routine Abdominal Exam Present: soft, normoactive bowel sounds, non distended. Absent: tenderness - Routine Extremities Exam Present: edema (2+ pitting in the feet) - Routine Skin Exam Present: warm - Routine Neurological Exam Present: alert - Routine Psychiatric Exam Present: cooperative Results - Labs CBC & Chem 7: 11/14/16 04:53 11/14/16 04:53 - ABG Interpretation ABG results: 11/08/16 17:45 ABG pH 7.450 ABG pCO2 50 H ABG pO2 75 L ABG HCO3 35 H ABG Total CO2 36.3 H ABG O2 Saturation 96.0 ABG Base Excess 9.3 H Assessment and Plan (1) Respiratory failure Current visit: Yes Status: Acute (2) Pneumonia Current visit: Yes Status: Acute Assessment and Plan: Sepsis due to pneumonia - Leukocytosis, Tachycardia, tachypnea. POA Atrial fibrillation/RVR-converted to sinus rhythm within 24 hours Hypertension RLL Pneumonia - community acquired; sputum with Pseudomonas-cefepime resistant Acute on chronic respiratory failure COPD - acute exacerbation Extensive COPD/Emphysema - end stage disease Macrocytic anemia Multiple subacute rib and thoracic/lumbar vertebral compression fractures Postherpetic neuralgia Presumed osteoporosis Chronic steroid use HTN Anxiety Hypernatremia (POA) Hypokalemia (POA) Thrush Significant pulmonary debility PLAN: Blood pressures remain high. Diltiazem increase to 360 mg was started today. Continue to monitor. Consider Lasix IV given the pitting edema (this is something he didn't have prior to admission per ). With elevated BNP, mild diuresis may help his breathing. Continue morphine and Ativan PRN air hunger/anxiety Day 5 (of 7) Zosyn for Pseudomonas pneumonia. Slow clinical improvement although has advanced disease. Sepsis Assessment - Evaluation Sepsis screening result: Sepsis Risk Hospital Course Summary Disclaimer: The visit summary below is not to be considered part of the above Progress Note. Hospital Course: Assessment Sepsis syndrome due to pneumonia - Leukocytosis, Tachycardia, tachypnea. 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 Multiple subacute rib and thoracic/lumbar vertebral compression fractures Postherpetic neuralgia Presumed osteoporosis Chronic steroid use HTN Hypernatremia (POA) Hypokalemia (POA) Thrush Significant pulmonary debility 11/06/16-hospital admission Admit to inpatient status to the hospitalist team with Dr. Smalls attending. Given patient's significant lung disease and respiratory failure, it is expected his stay will be at least 2 overnights. IV azithromycin and IV Rocephin to cover for typical pathogens causing CAP. Methylprednisolone IV 125 mg every 6 hours, inhaled/nebulized budesonide, DuoNeb treatments and Acapella for respiratory symptoms. Continue home [place] dosage for his chronic pain related to recent rib fractures and postherpetic neuralgia. Will add Neurontin 300mg at night as well. SCDs and Lovenox for DVT prevention. Ongoing Telemetry to monitor tachycardia. Check ECHO due to elevated BNP - suspect significant pulmonary HTN due to his lung disease. Urinalysis, magnesium, and TSH for laboratory completeness. Consider RT and/or pulmonology consult. Discussed CODE STATUS with patient. He does not wish to receive CPR, however he is willing to be placed on a ventilator short-term should this be indicated given his respiratory condition. 11/07/16 Sepsis syndrome resolving. Continue Rocephin and azithromycin for pulmonary coverage (Day #2). Continue Solu-Medrol at 125mg IV q 6 hours. Neb treatments/acapella/Mucinex. 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 ? if other medications or respiratory support would be beneficial. ? need for more help with ventilation. Concern that patient at end stage of his respiratory disease. Decrease IVF to 50cc/hr as patient taking oral in better. Sodium normalized at 143. Potassium increased to 3.4 - will give additional oral KCl and monitor. Nystatin started yesterday for thrush. Norvasc started yesterday due to significant BP elevation. Lorazepam as needed for anxiety/air hunger due to chronic respiratory failure. 11/08/16 Check CXR today - increasing oxygen needs (now on 4L) and weight is trending up. Fluid balance is positive. May need to consider stopping IVF and/or diuresing - Na level has improved to 144. K 3.4 - will give extra KDur. Chest discomfort this am, assoc. with increased dyspnea - will check trop. Echo pending. Hgb has trended down from 12 to 9.7 - check iron studies, vitamin B12, folate, check stool for occult blood. Platelets have also been trending down - will hold Lovenox for now. Continue Rocephin and azithromycin for pulmonary coverage (Day #3). Continue Solu-Medrol at 125mg IV q 6 hours. Neb treatments/acapella/Mucinex. Dr. Bolton has been consulted. High risk med: IV Ativan. 11/09/16 Antibiotics were changed to cefepime by pulmonology due to Pseudomonas growth. Sensitivities still pending. Patient requiring BiPAP constantly. Refusing to eat/drink due to respiratory distress. IV fluids were previously discontinued. Monitor for evidence of hydration. Will give another dose of Lasix 40 mg x 1 now given peripheral edema. Monitor I and O. Blood pressure is uncontrolled. Will increase amlodipine to 10 mg. May need to add another agent. Consider Romulo/ARB. Avoid beta alexi given his lung disease. Pulmonology will continue to follow. 11/10/16 Patient is critically ill with unstable cardiac rhythm and rate. 20 mg IV diltiazem given with minimal slowing of the heart rate at which point diltiazem drip ordered and patient was transferred to the CCU for further management. Amlodipine discontinued anticipating long-term conversion to diltiazem; magnesium level obtained in the event digitoxin will need to be added as a second agent for rate control. Potassium being replaced. Serial troponins being obtained, d-dimer obtained-not highly suggestive of triggering PE. Lovenox initiated at 40 mg daily in conjunction with SCDs. Echocardiogram to be obtained. Cardiology consultation may be needed. Findings discussed with Dr. Bolton. No change in respiratory status; day 2 cefepime for Pseudomonas pneumonia. With hemodynamic instability will not attempt to taper steroids today. Continue BiPAP/supplemental O2. Blood pressure elevated overnight, transient drop with onset of A. fib. Anticipate adding losartan in conjunction with calcium alexi. 11/11/16 Converted back to sinus rhythm following initiation of Cardizem and slowing of heart rate yesterday. Heart rate in the 80s and 90s overnight and today. Blood pressure modestly elevated today following discontinuation of amlodipine; losartan initiated today at 50 mg daily, supplemental 50 mg dose given and daily dose increased to 100 mg daily effective tomorrow morning. Troponins obtained yesterday unremarkable. Stable to transfer back to the floor and resume prior care directed at stabilization of chronic respiratory disease. No overall change in respiratory status; Pseudomonas pneumonia treated with cefepime 11/09-11/10; switched to Zosyn 11/10 when found to be cefepime resistant. Continue Solu-Medrol at current dose today, if stable overnight will convert to prednisone tomorrow and begin slow titration Continue BiPAP/supplemental O2. Macrocytic anemia present, B-12 supplementation initiated 11/09 Hypernatremia improving, potassium improved today. Continue to monitor. PT/OT consults; began getting patient up to chair. 11/12/16 Remains in sinus rhythm by review of telemetry strips, single or-5P CT overnight. Blood pressure modestly elevated today with last 2 readings 155/96 and 139/86. Continue losartan 100 mg daily and diltiazem CD 240 mg daily-heart rate will permit increasing calcium alexi dose if needed. Slow improvement in respiratory status; Pseudomonas pneumonia treated with cefepime 11/09-11/10; switched to Zosyn 11/10 when found to be cefepime resistant. Anticipate 7 days Zosyn (currently day 3) Convert from Solu-Medrol to prednisone 60 mg daily. Continue BiPAP/supplemental O2. Macrocytic anemia present, B-12 supplementation initiated 11/09 Persistent hypernatremia, patient reports improved oral intake since tolerating increased time off BiPAP. Platelet count dropping-reassess tomorrow before discontinuing Lovenox. HIT Ab with a.m. labs. 11/13/16 I reviewed diagnoses with Forrest, his Shruti, and his mother: End-stage COPD with life threatening illness and complications including sepsis, pneumonia , A-fib with RVR, and immunocompromised status. I let them know that while his pneumonia looks better (but not resolved), his underlying status is still very serious and medically we have little more to offer him; nor do we expect his condition to improve much. This topic brought a response of great excitement from his , who verbally and emphatically exclaimed "Lola Brandon, the end is near!" with a smile on her face. When I asked her to explain her reaction, she replied that she believes that he will have a miracle, and will surprise all of us and Ulises will walk out of the hospital completely healed. Ulises and his mother also shared this enthusiasm, and both believed that he will completely recover from both his pneumonia and his end-stage lung disease. I again offered the concept of palliative care - focusing on symptom control, particularly for breathing. Both Ulises and Shruti were very quiet, and did not offer much response. I did not feel they were at a point emotionally to discuss hospice. I reviewed his limitations - unable to ambulate, feed himself, sit upright, perform self-cares, undergo bed bath without needing BiPAP - according to the Palliative Performance Scale he is currently at best 30%; at home he may have been up to 40%, both of which are associated with a very limited life expectancy. I again reviewed what his wishes are if he decompensates - he wants full, aggressive care. He currently rates his quality of life as excellent and wants to keep on living. I let them know that odds of survival if he codes are very slim, and the chance for recovery is even less than that. We reviewed discharge planning. They are opposed to skilled care and he intends on going home. His denies any caregiver stress/strain. Her vinnie is a major source of strength. She is hopeful he won't need BiPAP when he goes home. We reviewed what palliative care might look like at home - could possibly send him home with Ativan at a reduced frequency; morphine will require additional consideration given risk for respiratory suppression. His reports that she temporarily increases the flow rate at home if he becomes more short of breath. Oral intake is improving - Na still mildly elevated. Shruti reports that he has been drinking fluids much better today. BP has still been elevated - diastolics frequently range 90-100+. HR has not been bradycardic. Will increase diltiazem to 360 mg daily. Continue Zosyn (day 4 of 7) for pseudomonas pneumonia; Prednisone 60 mg daily; BiPAP; Nebs; and O2. Case management has filled out financial applications for home BiPAP. 11/14/16 Blood pressures remain high. Diltiazem increase to 360 mg was started today. Continue to monitor. Consider Lasix IV given the pitting edema (this is something he didn't have prior to admission per ). With elevated BNP, mild diuresis may help his breathing. Continue morphine and Ativan PRN air hunger/anxiety Day 5 ( 7) Zosyn for Pseudomonas pneumonia. Slow clinical improvement although has advanced disease <Naz Lal - Last Filed: 11/14/16 18:12> Objective Vital signs: Temperature 98.3 F 11/14/16 15:34 Pulse Rate 90 11/14/16 15:34 Respiratory Rate 18 11/14/16 15:34 Blood Pressure 159/94 H 11/14/16 15:34 Pulse Oximetry 98 11/14/16 15:34 Height/Weight/BMI: Height 1.73 m Weight 76.9 kg Body Mass Index 24.7 Results - Labs CBC & Chem 7: 11/14/16 04:53 11/14/16 04:53 - ABG Interpretation ABG results: 11/08/16 17:45 ABG pH 7.450 ABG pCO2 50 H ABG pO2 75 L ABG HCO3 35 H ABG Total CO2 36.3 H ABG O2 Saturation 96.0 ABG Base Excess 9.3 H Assessment and Plan (1) Respiratory failure Current visit: Yes Status: Acute (2) Pneumonia Current visit: Yes Status: Acute Assessment and Plan: I have independently evaluated and examined this patient. I reviewed the chart, the patient's history, and the ST[employer]WER/PA's documented findings as above. We discussed and formulated the assessment and plan as above with additions as below: Forrest was sleeping soundly when seen. His was at bedside and reported that he's been more tired today. He ate little at breakfast due to urge to have a bowel movement at the same time history arrived and after having a bowel movement he was too fatigued to eat. He has been drinking nutritional supplements while awake. Sleeping with BiPAP on, did not awaken to voice or exam. Decreased breath sounds throughout, no evidence of respiratory distress or accessory muscle use with BiPAP in place. Abdomen benign, +2 distal edema. Lengthy discussion with the patient's regarding patient's goals and increased focus on symptom management in addition to continued medical management. She was on present to consideration of palliative care in this context; when I reference patient having end-stage disease and limited lifespan she did not discuss miracles or look for other solutions. She indicated they have previously looked into the possibility of lung transplantation but did not consider it a viable option for Forrest. I don't believe she is open to consideration of hospice but is open to palliative consult if it may help patient lives more comfortably. Will contact Dr. Montero in the morning. Blood pressure a little better this afternoon, will diurese and reassess. Anticipate further improvement with steroids are tapered. - Time spent with patient greater than 35 minutes Coordination of Care: >50% of visit spent providing counseling/coordination of care Hospital Course Summary Disclaimer: The visit summary below is not to be considered part of the above Progress Note.
[2016-11-14] MEDS ORDERED: FUROSEMIDE 20 MG/2 ML INJECTION IVP ONE (18:00)
[2016-11-14] MEDS: GABAPENTIN 300 MG CAPSULE PO SCH (20:06)
[2016-11-14] MEDS: NS FLUSH BAG 500ml IV PRN (21:48)
[2016-11-15] MEDS: MORPHINE SULFATE 2mg INJECTION IVP PRN ×3 (01:03→17:38)
[2016-11-15] MEDS: PIPERACILLIN/TAZOBACTAM 3.375 GM in NS 100 ML IV SCH ×4 (03:49→22:11)
[2016-11-15] MEDS: ALBUTEROL/IPRATROPIUM 2.5mg-0.5mg/3ml NEB AEROSOL SCH ×4 (07:47→19:42)
[2016-11-15] MEDS: BUDESONIDE INH.SOLN 0.5mg/2ml NEB AEROSOL SCH ×2 (07:47→19:42)
[2016-11-15] MEDS: PredniSONE 20 MG TABLET PO SCH (09:08)
--- NOTE | 2016-11-15 09:17 | Progress Note ---
<Maria Isabel rPo - Last Filed: 11/15/16 09:12> Subjective: Ulises was resting in bed with his BiPAP in place. His Shruti was also in the room. He is fatigued this am, and his reports that he slept most of the day yesterday. When he sleeps, he is BiPAP dependent. She is encouraging him to keep up on fluids. He continues to cough, but it's not as frequent though is productive. His breathing is about the same. He is more edematous to his eyes, arms, legs - all over. We had very candid conversations again today about his end-stage lung disease, and acute complications of sepsis along with decreasing hgb (reduced oxygen carrying capacity), steroid use (resulting in immunocompromise, fluid retention, increased bleeding risk), thrombocytopenia ( which could be stress reaction or related to acute illness/sepsis), increasing leukocytosis (again could be infection-related, steroid effect, or stress reaction), muscle weakness/shaking/tremors (from sepsis, acute myopathy, debility, coupled on top of prolonged immobility). They were open to discussing advanced care directives (he stated he wants his to be primary, and she consented - not interested in secondary DPOA); living will (doesn't want to be kept artificially alive - became tearful during this conversation so will need additional discussion); and code status (no chest compressions, no intubation - essentially nothing that could make his lungs worse. OK with defibrillation and ACLS medications). Objective Vital signs: Temperature 97.5 F 11/15/16 00:00 Pulse Rate 79 11/15/16 03:57 Respiratory Rate 14 11/15/16 07:48 Blood Pressure 142/99 H 11/15/16 04:43 Pulse Oximetry 100 11/15/16 07:48 Rhythm: Normal Sinus Rhythm Height/Weight/BMI: Height 1.73 m Weight 76.9 kg Body Mass Index 24.7 - Constitutional Present: no acute distress (while BiPAP in place), well developed - Routine HEENT Exam Head: Present: cushingoid faces ENT: Present: mucous membranes dry Comments: left subconjunctival hemorrhage & b/l conjunctival edema left > right - Routine Respiratory Exam Present: decreased breath sounds, prolonged expiratory phase, diminished air movement - Routine Cardiovascular Exam Present: RRR, S1, S2 - Routine Abdominal Exam Present: soft, normoactive bowel sounds, non tender - Routine Extremities Exam Present: edema (anasarca) - Routine Skin Exam Present: dry, warm, ecchymosis - Routine Neurological Exam Present: alert, oriented X3, normal speech (conversational dyspnea) - Routine Psychiatric Exam Present: normal affect, normal thought process, cooperative Results - Labs CBC & Chem 7: 11/14/16 04:53 11/14/16 04:53 - ABG Interpretation ABG results: 11/08/16 17:45 ABG pH 7.450 ABG pCO2 50 H ABG pO2 75 L ABG HCO3 35 H ABG Total CO2 36.3 H ABG O2 Saturation 96.0 ABG Base Excess 9.3 H Assessment and Plan (1) Respiratory failure Current visit: Yes Status: Acute (2) Pneumonia Current visit: Yes Status: Acute GI Prophylaxis: Pepcid Resuscitation Status: Limited Code Assessment and Plan: Assessment Sepsis syndrome due to pneumonia - Leukocytosis, Tachycardia, tachypnea. ( Present on presentation in ED) Pseudomonas Pneumonia - community acquired Acute on chronic respiratory failure COPD - acute exacerbation Extensive COPD/Emphysema - end stage disease Prior lung nodule - obscured effusion on CT at presentation. Multiple subacute rib and thoracic/lumbar vertebral compression fractures Postherpetic neuralgia Presumed osteoporosis Chronic steroid use HTN Hypernatremia (POA) Hypokalemia (POA) - resolved Thrush Significant pulmonary debility Thrombocytopenia Macrocytic anemia - vitamin B12 deficient Subconjunctival hemorrhage Plan Advanced care directives discussed: Case management will bring DPOA form for Chalo to sign. We will have this notarized here. Code status clarified : No CPR, no intubation or mechanical ventilation. Living will: began discussion , and he was able to state that he doesn't want anything to keep him artificially alive (i.e. feeding tube). He was able to state that if he is unable to wake up while on BiPAP, then it should be removed. This will require additional discussion. I've asked Case Management to provide a Caring Conversations brochure to open up further conversations. Medically, ongoing concerns with little to no improvements in respiratory status. Today is day 6 of 7 of Zosyn for pseudomonas pneumonia. He required BiPAP use for most of the day yesterday, although he was sleeping a lot. Leukocytosis is increasing (could be steroid effect, also could be another or worsening infection). Platelets have been low but improved today (also could be stress reaction vs. sepsis response) - HIT antibodies were negative. He is still hypernatremic though BUN is decreasing, though he has anasarca. Hgb also has dropped 3 gm since admission, so will check stool again for occult blood. With steroid use he is at higher risk for GI bleed - continue Pepcid. Nutritionally, he took in little yesterday. His last albumin was 3.1 and prealbumin was 30 on admit. Will repeat CMP in am to f/u on albumin level. Start eye drops to keep them moisturized - he has some difficulty closing his left eye. Overall we had a realistic conversation this am about expectations and goals of care. They are open to palliative treatment, knowing that we have little to offer medically and they both agreed that comfort/symptom control is important. Further palliative conversations would be beneficial, and they are agreeable to discussing this further with Dr. Montero, who I've contacted and discussed the case with. Time spent with patient: 40 minutes. Discussed case with CM, Dr. Lal, and Dr. Montero. High risk medications in use: IV Ativan and Morphine. - Time spent with patient greater than 35 minutes Coordination of Care: >50% of visit spent providing counseling/coordination of care Sepsis Assessment - Evaluation Sepsis screening result: No Definite Risk Hospital Course Summary Disclaimer: The visit summary below is not to be considered part of the above Progress Note. Hospital Course: Assessment Sepsis syndrome due to pneumonia - Leukocytosis, Tachycardia, tachypnea. 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 Multiple subacute rib and thoracic/lumbar vertebral compression fractures Postherpetic neuralgia Presumed osteoporosis Chronic steroid use HTN Hypernatremia (POA) Hypokalemia (POA) Thrush Significant pulmonary debility 11/06/16-hospital admission Admit to inpatient status to the hospitalist team with Dr. Smalls attending. Given patient's significant lung disease and respiratory failure, it is expected his stay will be at least 2 overnights. IV azithromycin and IV Rocephin to cover for typical pathogens causing CAP. Methylprednisolone IV 125 mg every 6 hours, inhaled/nebulized budesonide, DuoNeb treatments and Acapella for respiratory symptoms. Continue home Butler dosage for his chronic pain related to recent rib fractures and postherpetic neuralgia. Will add Neurontin 300mg at night as well. SCDs and Lovenox for DVT prevention. Ongoing Telemetry to monitor tachycardia. Check ECHO due to elevated BNP - suspect significant pulmonary HTN due to his lung disease. Urinalysis, magnesium, and TSH for laboratory completeness. Consider RT and/or pulmonology consult. Discussed CODE STATUS with patient. He does not wish to receive CPR, however he is willing to be placed on a ventilator short-term should this be indicated given his respiratory condition. 11/07/16 Sepsis syndrome resolving. Continue Rocephin and azithromycin for pulmonary coverage (Day #2). Continue Solu-Medrol at 125mg IV q 6 hours. Neb treatments/acapella/Mucinex. 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 ? if other medications or respiratory support would be beneficial. ? need for more help with ventilation. Concern that patient at end stage of his respiratory disease. Decrease IVF to 50cc/hr as patient taking oral in better. Sodium normalized at 143. Potassium increased to 3.4 - will give additional oral KCl and monitor. Nystatin started yesterday for thrush. Norvasc started yesterday due to significant BP elevation. Lorazepam as needed for anxiety/air hunger due to chronic respiratory failure. 11/08/16 Check CXR today - increasing oxygen needs (now on 4L) and weight is trending up. Fluid balance is positive. May need to consider stopping IVF and/or diuresing - Na level has improved to 144. K 3.4 - will give extra KDur. Chest discomfort this am, assoc. with increased dyspnea - will check trop. Echo pending. Hgb has trended down from 12 to 9.7 - check iron studies, vitamin B12, folate, check stool for occult blood. Platelets have also been trending down - will hold Lovenox for now. Continue Rocephin and azithromycin for pulmonary coverage (Day #3). Continue Solu-Medrol at 125mg IV q 6 hours. Neb treatments/acapella/Mucinex. Dr. Bolton has been consulted. High risk med: IV Ativan. 11/09/16 Antibiotics were changed to cefepime by pulmonology due to Pseudomonas growth. Sensitivities still pending. Patient requiring BiPAP constantly. Refusing to eat/drink due to respiratory distress. IV fluids were previously discontinued. Monitor for evidence of hydration. Will give another dose of Lasix 40 mg x 1 now given peripheral edema. Monitor I and O. Blood pressure is uncontrolled. Will increase amlodipine to 10 mg. May need to add another agent. Consider Romulo/ARB. Avoid beta alexi given his lung disease. Pulmonology will continue to follow. 11/10/16 Patient is critically ill with unstable cardiac rhythm and rate. 20 mg IV diltiazem given with minimal slowing of the heart rate at which point diltiazem drip ordered and patient was transferred to the CCU for further management. Amlodipine discontinued anticipating long-term conversion to diltiazem; magnesium level obtained in the event digitoxin will need to be added as a second agent for rate control. Potassium being replaced. Serial troponins being obtained, d-dimer obtained-not highly suggestive of triggering PE. Lovenox initiated at 40 mg daily in conjunction with SCDs. Echocardiogram to be obtained. Cardiology consultation may be needed. Findings discussed with Dr. Bolton. No change in respiratory status; day 2 cefepime for Pseudomonas pneumonia. With hemodynamic instability will not attempt to taper steroids today. Continue BiPAP/supplemental O2. Blood pressure elevated overnight, transient drop with onset of A. fib. Anticipate adding losartan in conjunction with calcium alexi. 11/11/16 Converted back to sinus rhythm following initiation of Cardizem and slowing of heart rate yesterday. Heart rate in the 80s and 90s overnight and today. Blood pressure modestly elevated today following discontinuation of amlodipine; losartan initiated today at 50 mg daily, supplemental 50 mg dose given and daily dose increased to 100 mg daily effective tomorrow morning. Troponins obtained yesterday unremarkable. Stable to transfer back to the floor and resume prior care directed at stabilization of chronic respiratory disease. No overall change in respiratory status; Pseudomonas pneumonia treated with cefepime 11/09-11/10; switched to Zosyn 11/10 when found to be cefepime resistant. Continue Solu-Medrol at current dose today, if stable overnight will convert to prednisone tomorrow and begin slow titration Continue BiPAP/supplemental O2. Macrocytic anemia present, B-12 supplementation initiated 11/09 Hypernatremia improving, potassium improved today. Continue to monitor. PT/OT consults; began getting patient up to chair. 11/12/16 Remains in sinus rhythm by review of telemetry strips, single or-5P CT overnight. Blood pressure modestly elevated today with last 2 readings 155/96 and 139/86. Continue losartan 100 mg daily and diltiazem CD 240 mg daily-heart rate will permit increasing calcium alexi dose if needed. Slow improvement in respiratory status; Pseudomonas pneumonia treated with cefepime 11/09-11/10; switched to Zosyn 11/10 when found to be cefepime resistant. Anticipate 7 days Zosyn (currently day 3) Convert from Solu-Medrol to prednisone 60 mg daily. Continue BiPAP/supplemental O2. Macrocytic anemia present, B-12 supplementation initiated 11/09 Persistent hypernatremia, patient reports improved oral intake since tolerating increased time off BiPAP. Platelet count dropping-reassess tomorrow before discontinuing Lovenox. HIT Ab with a.m. labs. 11/13/16 I reviewed diagnoses with Forrest, his Shruti, and his mother: End-stage COPD with life threatening illness and complications including sepsis, pneumonia , A-fib with RVR, and immunocompromised status. I let them know that while his pneumonia looks better (but not resolved), his underlying status is still very serious and medically we have little more to offer him; nor do we expect his condition to improve much. They were not ready to discuss palliative/hospice care. Oral intake is improving - Na still mildly elevated. Shruti reports that he has been drinking fluids much better today. BP has still been elevated - diastolics frequently range 90-100+. HR has not been bradycardic. Will increase diltiazem to 360 mg daily. Continue Zosyn (day 4 of 7) for pseudomonas pneumonia; Prednisone 60 mg daily; BiPAP; Nebs; and O2. Case management has filled out financial applications for home BiPAP. 11/14/16 Blood pressures remain high. Diltiazem increase to 360 mg was started today. Continue to monitor. Consider Lasix IV given the pitting edema (this is something he didn't have prior to admission per ). With elevated BNP, mild diuresis may help his breathing. Continue morphine and Ativan PRN air hunger/anxiety Day 5 (of 7) Zosyn for Pseudomonas pneumonia. Slow clinical improvement although has advanced disease 11/15/16 Advanced care directives discussed: Case management will bring DPOA form for Chalo to sign. We will have this notarized here. Code status clarified : No CPR, no intubation or mechanical ventilation. Living will: began discussion , and he was able to state that he doesn't want anything to keep him artificially alive (i.e. feeding tube). He was able to state that if he is unable to wake up while on BiPAP, then it should be removed. This will require additional discussion. I've asked Case Management to provide a Caring Conversations brochure to open up further conversations. Medically, ongoing concerns with little to no improvements in respiratory status. Today is day 6 of 7 of Zosyn for pseudomonas pneumonia. He required BiPAP use for most of the day yesterday, although he was sleeping a lot. Leukocytosis is increasing (could be steroid effect, also could be another or worsening infection). Platelets have been low but improved today (also could be stress reaction vs. sepsis response) - HIT antibodies were negative. He is still hypernatremic though BUN is decreasing, though he has anasarca. Hgb also has dropped 3 gm since admission, so will check stool again for occult blood. With steroid use he is at higher risk for GI bleed. Nutritionally, he took in little yesterday. His last albumin was 3.1 and prealbumin was 30 on admit. Will repeat CMP in am to f/u on albumin level. Start eye drops to keep them moisturized - he has some difficulty closing his left eye. Overall we had a realistic conversation this am about expectations and goals of care. They are open to palliative treatment, knowing that we have little to offer medically and they both agreed that comfort/symptom control is important. Further palliative conversations would be beneficial, and they are agreeable to discussing this further with Dr. Montero, who I've contacted and discussed the case with. <Naz Lal - Last Filed: 11/15/16 22:23> Objective Vital signs: Temperature 98.2 F 11/15/16 15:26 Pulse Rate 83 11/15/16 15:26 Respiratory Rate 14 11/15/16 19:54 Blood Pressure 158/95 H 11/15/16 15:26 Pulse Oximetry 98 11/15/16 19:54 Height/Weight/BMI: Height 1.73 m Weight 71.1 kg Body Mass Index 24.7 Results - Labs CBC & Chem 7: 11/14/16 04:53 11/14/16 04:53 - ABG Interpretation ABG results: 11/08/16 17:45 ABG pH 7.450 ABG pCO2 50 H ABG pO2 75 L ABG HCO3 35 H ABG Total CO2 36.3 H ABG O2 Saturation 96.0 ABG Base Excess 9.3 H Assessment and Plan (1) Respiratory failure Current visit: Yes Status: Acute (2) Pneumonia Current visit: Yes Status: Acute Assessment and Plan: I have independently evaluated and examined this patient. I reviewed the chart, the patient's history, and the BARREL BANDER/PA's documented findings as above. We discussed and formulated the assessment and plan as above with additions as below: Forrest was sleeping when I visited him. He awoke briefly and indicated he's had some swelling in his eyes today. His was at the bedside and reported he was able to work with PT doing exercises in the bed only and that he was able to eat breakfast earlier today. Otherwise she reports no real change. Modification in CODE STATUS noted. Patient was on BiPAP at the time of assessment. Subcutaneous conjunctival edema was present bilaterally and BiPAP mask was putting minor upward pressure on the lower aspect of the orbits and required repositioning. Respirations were nonlabored with decreased breath sounds throughout, no wheezing was noted. +2 edema bilateral ankles and feet. Discussed briefly with Dr. Montero-consult reviewed. Day 08/15 Zosyn. Continue supportive care and case management support with respect to obtaining home BiPAP. Chest x-ray today reviewed by myself reveals mild vascular congestion and small right pleural effusion. Dose of Lasix given earlier today. Hospital Course Summary Disclaimer: The visit summary below is not to be considered part of the above Progress Note.
--- NOTE | 2016-11-15 09:23 | XRay Report ---
Indication: f/u pneumonia PROCEDURE: XR chest 1V: Encounter: Initial Comparison: November 11, 2016 and November 09, 2016 Findings: Aeration of the left lung continues to improve with minimal residual airspace disease. There is persistent right lower lobe airspace opacity with small bilateral pleural effusions, right greater than left. Emphysema. No pneumothorax. Heart size and mediastinal contours are within normal limits. Pulmonary vascularity is slightly prominent. Impression: Continued improvement in the left-sided pneumonia with evidence of mild pulmonary vascular congestion and slight increase in right effusion. .
[2016-11-15] MEDS ORDERED: REFRESH CLASSIC Eye Drops 0.4ml EACH EYE PRN (09:24)
[2016-11-15] MEDS: LOSARTAN 100 MG TABLET PO SCH (09:25)
[2016-11-15] MEDS: DiltiaZEM CD 360 MG CAPSULE PO SCH (09:25)
[2016-11-15] MEDS: GUAIFENESIN/D-METHORPHAN 600mg/30mg TABLET PO SCH ×2 (09:25→22:09)
[2016-11-15] MEDS: FAMOTIDINE 20 MG TABLET PO SCH ×2 (09:26→22:10)
[2016-11-15] MEDS: NYSTATIN 500,000 units/5 ml ORAL LIQUID PO SCH ×4 (09:26→22:09)
[2016-11-15] MEDS: CYANOCOBALAMIN (B-12) 1,000mcg/ml INJECTION IM SCH (09:27)
[2016-11-15] MEDS ORDERED: FUROSEMIDE 20 MG/2 ML INJECTION IVP ONE (13:25)
--- NOTE | 2016-11-15 16:52 | Family Practice Consult Note ---
History of Present Illness Consult date: 11/16/15 Requesting physician: Naz Lal Chief complaint: PALLIATIVE CARE CONSULT for Sepsis / COPD end stage History of present illness: Mr Coleman is 60, has advanced (end stage) COPD with a history of months of progression of severe debility. This was exacerbated by a post-viral (shingles ) neuropathy causing pain in back and leg that led to further limitation of ambulatory capacity and near bedridden status. He was marginally ambulatory with bed-chair and (with extreme effort) self-toileting with walker and many rest breaks. His development of CAP -> Sepsis induced critical illness and now despite nearing full course abx and treatment with supportive care he's not able to sit independently, stand, ambulate, or even sit up unassisted with PT evaluation. Thus his rehab potential is pessimistic and his lung prognosis obviously is quite poor. I'm not aware of a concern of aspiration component to this presentation (pseudomonas noted from his cultures), and so far he's alert, oriented, swallowing independently, and able to make needs known. Review of Systems - Constitutional Constitutional: Present: as per HPI - Cardiovascular Additional comments: Denies Chest pain, palpitations. Anasarca noted - Respiratory Respiratory: Present: as per HPI - Gastrointestinal Additional comments: thrombocytopenia and anemia noted, likely partially chronic disease and partly acute phase reactivity from sepsis - Genitourinary Genitourinary: Present: as per HPI - Musculoskeletal Musculoskeletal: Present: back pain, limited range of motion, muscle weakness, myalgias - Integumentary/Breasts Additional comments: buising noted from procedures / IV sticks, etc. - Psychiatric Additional comments: Denies suicidal ideations. Has had some emotional moments during hospitalization discussing his prognosis, however has made some headway in the decision making as well. Smiles during the interview, is pleasant and does make eye contact. - Hematologic/Lymphatic Hematologic/Lymphatic: Present: easy bleeding, easy bruising - Allergic/Immunologic Allergic/Immunologic: Present: as per HPI [facility] Patient Stated Medical History Hypertension Yes Chronic Obstructive Pulmonary Yes Disease (COPD) Gastroesophageal Reflux Yes Disease Shingles Yes Medical History Updates: Emphysema. Severe pain Surgical History: Appendectomy at age 18 - Social History Current occupation: Retired / Disabled Current occupational exposures/hazards: Yes (none present but former [employer], ? 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 Current residence: Apartment/Private Home Medications Home Medications Medication Instructions Recorded Confirmed Type Hydrocodone/APAP 5/325 [Radford 1 - 2 tab PO Q3-6HR PRN 11/06/16 11/06/16 History 5/325] Mometasone/Formoterol 200/5 2 puff INH BID 11/06/16 11/06/16 History [DULERA 200/5mcg INHALER] PredniSONE [Deltasone] 30 mg PO WB 11/06/16 11/06/16 History Allergies Allergy/AdvReac Type Severity Reaction Status Date / Time No Known Allergies Allergy Verified 11/06/16 07:34 Exam Vital signs: Temperature 98.2 F 11/15/16 15:26 Pulse Rate 83 11/15/16 15:26 Respiratory Rate 15 11/15/16 16:01 Blood Pressure 158/95 H 11/15/16 15:26 Pulse Oximetry 96 11/15/16 16:01 Narrative: Limited exam (Palliative consultation for Goals of Care) Results - Labs Result diagrams: 11/14/16 04:53 11/14/16 04:53 All other labs normal. - EKG Rate & rhythm: NSR Assessment and Plan (1) Pneumonia Current visit: Yes Status: Acute (2) Acute on chronic respiratory failure with hypoxia and hypercapnia Current visit: Yes Status: Acute (3) Acute exacerbation of chronic obstructive pulmonary disease (COPD) Current visit: Yes Status: Acute (4) Supraventricular tachycardia Current visit: Yes Status: Resolved Sepsis Assessment - Evaluation Sepsis screening result: No Definite Risk Hospital Course Summary Disclaimer: The visit summary below is not to be considered part of the above Progress Note. Hospital Course: Assessment Palliative Care Consultation visit 1) Acute CAP-> Sepsis (severe) with acute (on chronic) respiratory failure. Some stabilization from the sepsis, though recovery potential is poor to return to his previous baseline. Day 6/7 of Zosyn. 2) COPD - of note, his previous baseline functional status was very poor - mobility limitation near a NYHA IV level at his previous baseline. 3) Acute on Chronic Debility - his rehab potential is quite questionable now nearly 1 week out from presentation. This may have a limiting factor on his eligibility (suitability) for a home health care / Rehab referral as his disposition plan. He would clearly qualify for hospice at this point which may offer a more realistic support package for him. This was discussed at length (treatment options and realistic goals contrasted with the admission criterion and corresponding treatment goals and realistic compatibility (SNF/ LTC vs LTAC vs Home Health Agency + family supportive care at home vs. Hospice with supportive care at home. Patient was noncommittal today. If he shows any sign of improved strength ( able to sit alone, etc.) then a home health rehab stint could at least be considered, though not at all optimistic and we discussed this could result in only brief period of service availability (if patient can't tolerate rehab or make progress, expectation of d/c of service will be required). 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 4) Acute respiratory failure / Chronic Respiratory failue Patient currently BiPAP dependent at sleep. Not likely to significantly improve (IE back to baseline) though theoretically could improve enough to wean to a non-ventillatory bipap at some point, etc. 5) Advanced Directive / Goals of Care - patient has done the "heavy lifting" of determining DNI / DNR effectively, and has DPOA (spouse) and a named primary caregiver (his daughter I believe) who have been and plan to continue to help care for him in the home if at all possible. They seem confident in their caregiving strategy at this point. - We broached the topic of his hospice compatibility and the benefits of hospice for him (01/10 availability for symptom crisis assistance, possibility of remaining in home even with illness progression, ease of burden on his family , and of course the psychosocial and spiritual support services. He was listening intently, however noncommittal to his preferred aftercare discharge strategy (it's not clear he's got any (PT/OT) rehab potential in which case home health is not very realistic for his situation, hospice is probably better suited for the Goals of Care I was able to discern from the conversation. Not all hospices will cover the ventillator types of BiPap, so that may be another discharge disposition consideration as this is something Home Health can follow for him - This leads to further Goals of Care conversation for next steps - such as consideration of whether he would want to be hospitalized again with exacerbations, treatment of sepsis, pneumonias, etc. He is clearly still processing this information, he and family will need some time and reinforcement of realistic vs. nonachievable goals and recovery potential. Thank you for this consultation opportunity on this nice gentleman. Vin Montero MD
[2016-11-15] MEDS: GABAPENTIN 300 MG CAPSULE PO SCH (22:10)
[2016-11-16] MEDS: PIPERACILLIN/TAZOBACTAM 3.375 GM in NS 100 ML IV SCH ×4 (03:32→21:02)
[2016-11-16] MEDS: NS FLUSH BAG 500ml IV PRN (03:34)
[2016-11-16] MEDS: SALINE FLUSH 10ml SYRINGE IVF PRN (05:45)
[2016-11-16] MEDS: ALBUTEROL/IPRATROPIUM 2.5mg-0.5mg/3ml NEB AEROSOL SCH ×4 (06:35→19:30)
[2016-11-16] MEDS: BUDESONIDE INH.SOLN 0.5mg/2ml NEB AEROSOL SCH ×2 (06:35→19:31)
[2016-11-16] MEDS: PredniSONE 20 MG TABLET PO SCH (09:33)
[2016-11-16] MEDS: FAMOTIDINE 20 MG TABLET PO SCH ×2 (09:34→21:02)
[2016-11-16] MEDS: NYSTATIN 500,000 units/5 ml ORAL LIQUID PO SCH ×5 (09:34→21:31)
[2016-11-16] MEDS: GUAIFENESIN/D-METHORPHAN 600mg/30mg TABLET PO SCH ×2 (09:34→21:01)
[2016-11-16] MEDS: LOSARTAN 100 MG TABLET PO SCH (09:34)
[2016-11-16] MEDS: DiltiaZEM CD 360 MG CAPSULE PO SCH (09:48)
--- NOTE | 2016-11-16 15:33 | Progress Note ---
<Maria Isabel Pro - Last Filed: 11/16/16 15:30> Subjective: Ulises was awake, resting in bed without BiPAP in place. He was able to do a little more today with PT - the PT moved his legs more, and he squeezed his buttocks. His doesn't think he's as shaky today either, so she's hopeful he 'll be able to eat more easily. He has a cough, but he can't bring it up. His breathing seems to be better. He denies any n/v or constipation. His eyes are less swollen today too. He states he's been sleeping well. When asked if they had questions about Dr. Montero's visit yesterday, they denied, but state that there are benefits of both home health and hospice, and they plan to discuss between the two of them in more detail over the weekend. was able to find a used BiPAP machine, and the hospital will provide part of the cost of it as john, which Shruti was very thankful for. Objective Vital signs: Temperature 96.3 F L 11/16/16 07:51 Pulse Rate 76 11/16/16 12:00 Respiratory Rate 17 11/16/16 11:00 Blood Pressure 132/93 H 11/16/16 07:51 Pulse Oximetry 100 11/16/16 11:00 Rhythm: Normal Sinus Rhythm Height/Weight/BMI: Height 1.73 m Weight 78.3 kg Body Mass Index 24.7 - Constitutional Present: no acute distress, well nourished, well developed - Routine HEENT Exam ENT: Present: oropharynx clear Comments: subconjunctival edema and hemorrhage (hemorrhage on left) are both improved - Routine Respiratory Exam Present: decreased breath sounds, crackles (left lower lobe), diminished air movement (especially right lower lobe) - Routine Cardiovascular Exam Present: RRR, S1, S2 - Routine Abdominal Exam Present: soft, normoactive bowel sounds, non distended, non tender - Routine Extremities Exam Present: edema (b/l lower ext and arms) - Routine Skin Exam Present: dry, warm, ecchymosis (arms) - Routine Neurological Exam Present: alert, oriented X3 - Routine Psychiatric Exam Present: normal thought process, cooperative Results - Labs CBC & Chem 7: 11/16/16 04:56 11/16/16 04:56 - ABG Interpretation ABG results: 11/08/16 17:45 ABG pH 7.450 ABG pCO2 50 H ABG pO2 75 L ABG HCO3 35 H ABG Total CO2 36.3 H ABG O2 Saturation 96.0 ABG Base Excess 9.3 H Assessment and Plan (1) Respiratory failure Current visit: Yes Status: Acute (2) Pneumonia Current visit: Yes Status: Acute Resuscitation Status: Limited Code Assessment and Plan: Assessment Sepsis syndrome due to pneumonia - Leukocytosis, Tachycardia, tachypnea. 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 Multiple subacute rib and thoracic/lumbar vertebral compression fractures Postherpetic neuralgia Presumed osteoporosis Chronic steroid use HTN Hypernatremia (POA) Hypokalemia (POA) Thrush Significant pulmonary debility Plan Today is day 7 7 of Zosyn for pseudomonas pneumonia. Increased Leukocytosis - poss steroid effect. He continues on Predisone 40 mg daily. Labs showed improvement in hypernatremia; albumin slightly less at 2.9. CM was able to find a BiPAP at a reasonable cost for Ulises. Mild clinical improvement noted, though still with significant debility. Ulises and his will discuss goals of care more this weekend - weighing pros and cons of hospice vs home health. Telemetry shows sinus with occ PAC. Sepsis Assessment - Evaluation Sepsis screening result: Sepsis Risk Hospital Course Summary Disclaimer: The visit summary below is not to be considered part of the above Progress Note. Hospital Course: Assessment Palliative Care Consultation visit 1) Acute CAP-> Sepsis (severe) with acute (on chronic) respiratory failure. Some stabilization from the sepsis, though recovery potential is poor to return to his previous baseline. Day 67 of Zosyn. 2) COPD - of note, his previous baseline functional status was very poor - mobility limitation near a NYHA IV level at his previous baseline. 3) Acute on Chronic Debility - his rehab potential is quite questionable now nearly 1 week out from presentation. This may have a limiting factor on his eligibility (suitability) for a home health care / Rehab referral as his disposition plan. He would clearly qualify for hospice at this point which may offer a more realistic support package for him. This was discussed at length (treatment options and realistic goals contrasted with the admission criterion and corresponding treatment goals and realistic compatibility (SNF/ LTC vs LTAC vs Home Health Agency + family supportive care at home vs. Hospice with supportive care at home. Patient was noncommittal today. If he shows any sign of improved strength ( able to sit alone, etc.) then a home health rehab stint could at least be considered, though not at all optimistic and we discussed this could result in only brief period of service availability (if patient can't tolerate rehab or make progress, expectation of d/c of service will be required). This of course is not a very realistic senior care plan for him as it does not address his baseline (terminal phase) respiratory trajectory. 4) Acute respiratory failure / Chronic Respiratory failue Patient currently BiPAP dependent at sleep. Not likely to significantly improve (IE back to baseline) though theoretically could improve enough to wean to a non-ventillatory bipap at some point, etc. 5) Advanced Directive / Goals of Care - patient has done the "heavy lifting" of determining DNI / DNR effectively, and has DPOA (spouse) and a named primary caregiver (his daughter I believe) who have been and plan to continue to help care for him in the home if at all possible. They seem confident in their caregiving strategy at this point. - We broached the topic of his hospice compatibility and the benefits of hospice for him (01/10 availability for symptom crisis assistance, possibility of remaining in home even with illness progression, ease of burden on his family , and of course the psychosocial and spiritual support services. He was listening intently, however noncommittal to his preferred aftercare discharge strategy (it's not clear he's got any (PT/OT) rehab potential in which case home health is not very realistic for his situation, hospice is probably better suited for the Goals of Care I was able to discern from the conversation. Not all hospices will cover the ventillator types of BiPap, so that may be another discharge disposition consideration as this is something Home Health can follow for him - This leads to further Goals of Care conversation for next steps - such as consideration of whether he would want to be hospitalized again with exacerbations, treatment of sepsis, pneumonias, etc. He is clearly still processing this information, he and family will need some time and reinforcement of realistic vs. nonachievable goals and recovery potential. Thank you for this consultation opportunity on this nice gentleman. Vin Montero MD <Naz Lal - Last Filed: 11/16/16 18:17> Objective Vital signs: Temperature 97.1 F 11/16/16 15:59 Pulse Rate 81 11/16/16 15:59 Respiratory Rate 20 11/16/16 15:59 Blood Pressure 105/71 11/16/16 15:59 Pulse Oximetry 100 11/16/16 15:59 Height/Weight/BMI: Height 1.73 m Weight 78.3 kg Body Mass Index 24.7 Results - Labs CBC & Chem 7: 11/16/16 04:56 11/16/16 04:56 - ABG Interpretation ABG results: 11/08/16 17:45 ABG pH 7.450 ABG pCO2 50 H ABG pO2 75 L ABG HCO3 35 H ABG Total CO2 36.3 H ABG O2 Saturation 96.0 ABG Base Excess 9.3 H Assessment and Plan (1) Respiratory failure Current visit: Yes Status: Acute (2) Pneumonia Current visit: Yes Status: Acute Assessment and Plan: I have independently evaluated and examined this patient. I reviewed the chart, the patient's history, and the BANANA HANDLER/PA's documented findings as above. We discussed and formulated the assessment and plan as above with additions as below: Ulises was seen shortly after physical therapy today. He reported completing lower extremity exercises in the bed but no attempts were made to sit at the edge of the bed. He was off BiPAP when seen and reported slow improvement in dyspnea and minimal cough or sputum production. His noted that secretions have cleared over the past couple of days. Oral intake remains poor. Patient was alert, there is residual subconjunctival edema left greater than right. Respirations were mildly labored with fair airflow and clear breath sounds anteriorly PICC line left upper extremity-site unremarkable Blood pressures have continued to require interventions, clonidine 0.1 mg added twice daily to smooth control. Saturday being discussed as possible discharge date. Pt/ processing options outlined by Dr. Montero. d/w Dr. Bolton and CM. Hospital Course Summary Disclaimer: The visit summary below is not to be considered part of the above Progress Note. Hospital Course: Hospital Course: Assessment Sepsis syndrome due to pneumonia - Leukocytosis, Tachycardia, tachypnea. 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 Multiple subacute rib and thoracic/lumbar vertebral compression fractures Postherpetic neuralgia Presumed osteoporosis Chronic steroid use HTN Hypernatremia (POA) Hypokalemia (POA) Thrush Significant pulmonary debility 11/06/16-hospital admission Admit to inpatient status to the hospitalist team with Dr. Smalls attending. Given patient's significant lung disease and respiratory failure, it is expected his stay will be at least 2 overnights. IV azithromycin and IV Rocephin to cover for typical pathogens causing CAP. Methylprednisolone IV 125 mg every 6 hours, inhaled/nebulized budesonide, DuoNeb treatments and Acapella for respiratory symptoms. Continue home [place] dosage for his chronic pain related to recent rib fractures and postherpetic neuralgia. Will add Neurontin 300mg at night as well. SCDs and Lovenox for DVT prevention. Ongoing Telemetry to monitor tachycardia. Check ECHO due to elevated BNP - suspect significant pulmonary HTN due to his lung disease. Urinalysis, magnesium, and TSH for laboratory completeness. Consider RT and/or pulmonology consult. Discussed CODE STATUS with patient. He does not wish to receive CPR, however he is willing to be placed on a ventilator short-term should this be indicated given his respiratory condition. 11/07/16 Sepsis syndrome resolving. Continue Rocephin and azithromycin for pulmonary coverage (Day #2). Continue Solu-Medrol at 125mg IV q 6 hours. Neb treatments/acapella/Mucinex. Will consult Dr Bolton for pulmonary evaluation - not been able to see his sheet combining operator for ~1 year to due his severe pulmonary debility. ? if other medications or respiratory support would be beneficial. ? need for more help with ventilation. Concern that patient at end stage of his respiratory disease. Decrease IVF to 50cc/hr as patient taking oral in better. Sodium normalized at 143. Potassium increased to 3.4 - will give additional oral KCl and monitor. Nystatin started yesterday for thrush. Norvasc started yesterday due to significant BP elevation. Lorazepam as needed for anxiety/air hunger due to chronic respiratory failure. 11/08/16 Check CXR today - increasing oxygen needs (now on 4L) and weight is trending up. Fluid balance is positive. May need to consider stopping IVF and/or diuresing - Na level has improved to 144. K 3.4 - will give extra KDur. Chest discomfort this am, assoc. with increased dyspnea - will check trop. Echo pending. Hgb has trended down from 12 to 9.7 - check iron studies, vitamin B12, folate, check stool for occult blood. Platelets have also been trending down - will hold Lovenox for now. Continue Rocephin and azithromycin for pulmonary coverage (Day #3). Continue Solu-Medrol at 125mg IV q 6 hours. Neb treatments/acapella/Mucinex. Dr. Bolton has been consulted. High risk med: IV Ativan. 11/09/16 Antibiotics were changed to cefepime by pulmonology due to Pseudomonas growth. Sensitivities still pending. Patient requiring BiPAP constantly. Refusing to eat/drink due to respiratory distress. IV fluids were previously discontinued. Monitor for evidence of hydration. Will give another dose of Lasix 40 mg x 1 now given peripheral edema. Monitor I and O. Blood pressure is uncontrolled. Will increase amlodipine to 10 mg. May need to add another agent. Consider Romulo/ARB. Avoid beta alexi given his lung disease. Pulmonology will continue to follow. 11/10/16 Patient is critically ill with unstable cardiac rhythm and rate. 20 mg IV diltiazem given with minimal slowing of the heart rate at which point diltiazem drip ordered and patient was transferred to the CCU for further management. Amlodipine discontinued anticipating long-term conversion to diltiazem; magnesium level obtained in the event digitoxin will need to be added as a second agent for rate control. Potassium being replaced. Serial troponins being obtained, d-dimer obtained-not highly suggestive of triggering PE. Lovenox initiated at 40 mg daily in conjunction with SCDs. Echocardiogram to be obtained. Cardiology consultation may be needed. Findings discussed with Dr. Bolton. No change in respiratory status; day 2 cefepime for Pseudomonas pneumonia. With hemodynamic instability will not attempt to taper steroids today. Continue BiPAP/supplemental O2. Blood pressure elevated overnight, transient drop with onset of A. fib. Anticipate adding losartan in conjunction with calcium alexi. 11/11/16 Converted back to sinus rhythm following initiation of Cardizem and slowing of heart rate yesterday. Heart rate in the 80s and 90s overnight and today. Blood pressure modestly elevated today following discontinuation of amlodipine; losartan initiated today at 50 mg daily, supplemental 50 mg dose given and daily dose increased to 100 mg daily effective tomorrow morning. Troponins obtained yesterday unremarkable. Stable to transfer back to the floor and resume prior care directed at stabilization of chronic respiratory disease. No overall change in respiratory status; Pseudomonas pneumonia treated with cefepime 11/09-11/10; switched to Zosyn 11/10 when found to be cefepime resistant. Continue Solu-Medrol at current dose today, if stable overnight will convert to prednisone tomorrow and begin slow titration Continue BiPAP/supplemental O2. Macrocytic anemia present, B-12 supplementation initiated 11/09 Hypernatremia improving, potassium improved today. Continue to monitor. PT/OT consults; began getting patient up to chair. 11/12/16 Remains in sinus rhythm by review of telemetry strips, single or-5P CT overnight. Blood pressure modestly elevated today with last 2 readings 155/96 and 139/86. Continue losartan 100 mg daily and diltiazem CD 240 mg daily-heart rate will permit increasing calcium alexi dose if needed. Slow improvement in respiratory status; Pseudomonas pneumonia treated with cefepime 11/09-11/10; switched to Zosyn 11/10 when found to be cefepime resistant. Anticipate 7 days Zosyn (currently day 3) Convert from Solu-Medrol to prednisone 60 mg daily. Continue BiPAP/supplemental O2. Macrocytic anemia present, B-12 supplementation initiated 11/09 Persistent hypernatremia, patient reports improved oral intake since tolerating increased time off BiPAP. Platelet count dropping-reassess tomorrow before discontinuing Lovenox. HIT Ab with a.m. labs. 11/13/16 I reviewed diagnoses with Forrest, his Shruti, and his mother: End-stage COPD with life threatening illness and complications including sepsis, pneumonia , A-fib with RVR, and immunocompromised status. I let them know that while his pneumonia looks better (but not resolved), his underlying status is still very serious and medically we have little more to offer him; nor do we expect his condition to improve much. This topic brought a response of great excitement from his , who verbally and emphatically exclaimed "Lola Brandon, the end is near!" with a smile on her face. When I asked her to explain her reaction, she replied that she believes that he will have a miracle, and will surprise all of us and Ulises will walk out of the hospital completely healed. Ulises and his mother also shared this enthusiasm, and both believed that he will completely recover from both his pneumonia and his end-stage lung disease. I again offered the concept of palliative care - focusing on symptom control, particularly for breathing. Both Ulises and Shruti were very quiet, and did not offer much response. I did not feel they were at a point emotionally to discuss hospice. I reviewed his limitations - unable to ambulate, feed himself, sit upright, perform self-cares, undergo bed bath without needing BiPAP - according to the Palliative Performance Scale he is currently at best 30%; at home he may have been up to 40%, both of which are associated with a very limited life expectancy. I again reviewed what his wishes are if he decompensates - he wants full, aggressive care. He currently rates his quality of life as excellent and wants to keep on living. I let them know that odds of survival if he codes are very slim, and the chance for recovery is even less than that. We reviewed discharge planning. They are opposed to skilled care and he intends on going home. His denies any caregiver stress/strain. Her vinnie is a major source of strength. She is hopeful he won't need BiPAP when he goes home. We reviewed what palliative care might look like at home - could possibly send him home with Ativan at a reduced frequency; morphine will require additional consideration given risk for respiratory suppression. His reports that she temporarily increases the flow rate at home if he becomes more short of breath. Oral intake is improving - Na still mildly elevated. Shruti reports that he has been drinking fluids much better today. BP has still been elevated - diastolics frequently range 90-100+. HR has not been bradycardic. Will increase diltiazem to 360 mg daily. Continue Zosyn (day 4 of 7) for pseudomonas pneumonia; Prednisone 60 mg daily; BiPAP; Nebs; and O2. Case management has filled out financial applications for home BiPAP. 11/14/16 Blood pressures remain high. Diltiazem increase to 360 mg was started today. Continue to monitor. Consider Lasix IV given the pitting edema (this is something he didn't have prior to admission per ). With elevated BNP, mild diuresis may help his breathing. Continue morphine and Ativan PRN air hunger/anxiety Day 5 (of 7) Zosyn for Pseudomonas pneumonia. Slow clinical improvement although has advanced disease 11/15/16 Advanced care directives discussed: Case management will bring DPOA form for Chalo to sign. We will have this notarized here. Code status clarified : No CPR, no intubation or mechanical ventilation. Living will: began discussion , and he was able to state that he doesn't want anything to keep him artificially alive (i.e. feeding tube). He was able to state that if he is unable to wake up while on BiPAP, then it should be removed. This will require additional discussion. I've asked Case Management to provide a Caring Conversations brochure to open up further conversations. Medically, ongoing concerns with little to no improvements in respiratory status. Today is day 6 of 7 of Zosyn for pseudomonas pneumonia. He required BiPAP use for most of the day yesterday, although he was sleeping a lot. Leukocytosis is increasing (could be steroid effect, also could be another or worsening infection). Platelets have been low but improved today (also could be stress reaction vs. sepsis response) - HIT antibodies were negative. He is still hypernatremic though BUN is decreasing, though he has anasarca. Hgb also has dropped 3 gm since admission, so will check stool again for occult blood. With steroid use he is at higher risk for GI bleed. Nutritionally, he took in little yesterday. His last albumin was 3.1 and prealbumin was 30 on admit. Will repeat CMP in am to f/u on albumin level. Start eye drops to keep them moisturized - he has some difficulty closing his left eye. Overall we had a realistic conversation this am about expectations and goals of care. They are open to palliative treatment, knowing that we have little to offer medically and they both agreed that comfort/symptom control is important. Further palliative conversations would be beneficial, and they are agreeable to discussing this further with Dr. Montero, who I've contacted and discussed the case with.
[2016-11-16] MEDS: GABAPENTIN 300 MG CAPSULE PO SCH (21:02)
[2016-11-16] MEDS: MORPHINE SULFATE 10mg/0.5ml ORAL LIQ SL PRN (21:18)
[2016-11-17] MEDS: PIPERACILLIN/TAZOBACTAM 3.375 GM in NS 100 ML IV SCH ×4 (03:31→20:32)
[2016-11-17] MEDS: BUDESONIDE INH.SOLN 0.5mg/2ml NEB AEROSOL SCH ×2 (07:34→19:33)
[2016-11-17] MEDS: ALBUTEROL/IPRATROPIUM 2.5mg-0.5mg/3ml NEB AEROSOL SCH ×4 (07:34→19:33)
[2016-11-17] MEDS: SALINE FLUSH 10ml SYRINGE IVF PRN ×2 (09:49→15:34)
[2016-11-17] MEDS: NS FLUSH BAG 500ml IV PRN (09:49)
[2016-11-17] MEDS: PredniSONE 20 MG TABLET PO SCH (10:32)
[2016-11-17] MEDS: DiltiaZEM CD 360 MG CAPSULE PO SCH (10:33)
[2016-11-17] MEDS: LOSARTAN 100 MG TABLET PO SCH (10:35)
[2016-11-17] MEDS: FAMOTIDINE 20 MG TABLET PO SCH ×2 (10:36→20:32)
[2016-11-17] MEDS: NYSTATIN 500,000 units/5 ml ORAL LIQUID PO SCH ×4 (10:36→20:32)
[2016-11-17] MEDS: GUAIFENESIN/D-METHORPHAN 600mg/30mg TABLET PO SCH ×2 (10:36→20:32)
[2016-11-17] MEDS: MORPHINE SULFATE 10mg/0.5ml ORAL LIQ SL PRN ×2 (13:27→20:27)
--- NOTE | 2016-11-17 17:12 | Progress Note ---
Subjective: Forrest seen with multiple family members at the bedside. He had been off BiPAP most of the day and had just gone back on it mid late afternoon so he could rest. He reported that he has minimal cough and no sputum. He continues to try to do some exercises with his legs in bed as he tolerates it. He's had no nausea or vomiting, ate better today, and denied fever or lightheadedness. Family members had no new questions or concerns. Objective Vital signs: Temperature 97.6 F 11/17/16 16:22 Pulse Rate 88 11/17/16 16:22 Respiratory Rate 16 11/17/16 16:22 Blood Pressure 90/66 11/17/16 16:22 Pulse Oximetry 93 11/17/16 16:22 I/O9 100/1050 EXAM General-NAD, alert HEENT-minimal subconjunctival swelling left eye, mildly injected Lungs-respirations nonlabored with BiPAP on, fair airflow, no wheezing or rhonchi appreciated-anterior lung hoffman only Cardiac-regular rhythm Abd-soft, nontender, obese/distended, bowel sounds present Ext-+2 edema distal lower extremities, +2 edema bilateral elbows Skin-fragile, extensive bruising - Height/Weight/BMI: Height 1.73 m Weight 78.018 kg Body Mass Index 26.1 Results - Labs CBC & Chem 7: 11/16/16 04:56 11/16/16 04:56 - ABG Interpretation ABG results: 11/08/16 17:45 ABG pH 7.450 ABG pCO2 50 H ABG pO2 75 L ABG HCO3 35 H ABG Total CO2 36.3 H ABG O2 Saturation 96.0 ABG Base Excess 9.3 H Assessment and Plan (1) Acute on chronic respiratory failure with hypoxia and hypercapnia Current visit: Yes Status: Acute (2) Pneumonia Problem details: Pseudomonas, treated Current visit: Yes Status: Acute DVT Prophylaxis: SCD's GI Prophylaxis: Pepcid Resuscitation Status: Limited Code (no cardiac intervention) Assessment and Plan: Assessment Sepsis syndrome due to pneumonia - Leukocytosis, Tachycardia, tachypnea. 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 Multiple subacute rib and thoracic/lumbar vertebral compression fractures Postherpetic neuralgia Presumed osteoporosis Chronic steroid use HTN Hypernatremia (POA) Hypokalemia (POA) Thrush Significant pulmonary debility Plan Mr. Grdier is stable. Antibiotics were completed yesterday. Electrolytes to be reassessed tomorrow. Blood pressure is low-normal since initiation of clonidine twice daily, dose reduced to once daily. Continue BiPAP at night and as needed during the day. Palliative care not readdressed at this time. Discussed with nursing. Discontinue telemetry. Sepsis Assessment - Evaluation Sepsis screening result: No Definite Risk Hospital Course Summary Disclaimer: The visit summary below is not to be considered part of the above Progress Note. Hospital Course: Hospital Course: Assessment Sepsis syndrome due to pneumonia - Leukocytosis, Tachycardia, tachypnea. 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 Multiple subacute rib and thoracic/lumbar vertebral compression fractures Postherpetic neuralgia Presumed osteoporosis Chronic steroid use HTN Hypernatremia (POA) Hypokalemia (POA) Thrush Significant pulmonary debility 11/06/16-hospital admission Admit to inpatient status to the hospitalist team with Dr. Smalls attending. Given patient's significant lung disease and respiratory failure, it is expected his stay will be at least 2 overnights. IV azithromycin and IV Rocephin to cover for typical pathogens causing CAP. Methylprednisolone IV 125 mg every 6 hours, inhaled/nebulized budesonide, DuoNeb treatments and Acapella for respiratory symptoms. Continue home [place] dosage for his chronic pain related to recent rib fractures and postherpetic neuralgia. Will add Neurontin 300mg at night as well. SCDs and Lovenox for DVT prevention. Ongoing Telemetry to monitor tachycardia. Check ECHO due to elevated BNP - suspect significant pulmonary HTN due to his lung disease. Urinalysis, magnesium, and TSH for laboratory completeness. Consider RT and/or pulmonology consult. Discussed CODE STATUS with patient. He does not wish to receive CPR, however he is willing to be placed on a ventilator short-term should this be indicated given his respiratory condition. 11/07/16 Sepsis syndrome resolving. Continue Rocephin and azithromycin for pulmonary coverage (Day #2). Continue Solu-Medrol at 125mg IV q 6 hours. Neb treatments/acapella/Mucinex. Will consult Dr Bolton for pulmonary evaluation - not been able to see his stabilizer operator for ~1 year to due his severe pulmonary debility. ? if other medications or respiratory support would be beneficial. ? need for more help with ventilation. Concern that patient at end stage of his respiratory disease. Decrease IVF to 50cc/hr as patient taking oral in better. Sodium normalized at 143. Potassium increased to 3.4 - will give additional oral KCl and monitor. Nystatin started yesterday for thrush. Norvasc started yesterday due to significant BP elevation. Lorazepam as needed for anxiety/air hunger due to chronic respiratory failure. 11/08/16 Check CXR today - increasing oxygen needs (now on 4L) and weight is trending up. Fluid balance is positive. May need to consider stopping IVF and/or diuresing - Na level has improved to 144. K 3.4 - will give extra KDur. Chest discomfort this am, assoc. with increased dyspnea - will check trop. Echo pending. Hgb has trended down from 12 to 9.7 - check iron studies, vitamin B12, folate, check stool for occult blood. Platelets have also been trending down - will hold Lovenox for now. Continue Rocephin and azithromycin for pulmonary coverage (Day #3). Continue Solu-Medrol at 125mg IV q 6 hours. Neb treatments/acapella/Mucinex. Dr. Bolton has been consulted. High risk med: IV Ativan. 11/09/16 Antibiotics were changed to cefepime by pulmonology due to Pseudomonas growth. Sensitivities still pending. Patient requiring BiPAP constantly. Refusing to eat/drink due to respiratory distress. IV fluids were previously discontinued. Monitor for evidence of hydration. Will give another dose of Lasix 40 mg x 1 now given peripheral edema. Monitor I and O. Blood pressure is uncontrolled. Will increase amlodipine to 10 mg. May need to add another agent. Consider Romulo/ARB. Avoid beta alexi given his lung disease. Pulmonology will continue to follow. 11/10/16 Patient is critically ill with unstable cardiac rhythm and rate. 20 mg IV diltiazem given with minimal slowing of the heart rate at which point diltiazem drip ordered and patient was transferred to the CCU for further management. Amlodipine discontinued anticipating long-term conversion to diltiazem; magnesium level obtained in the event digitoxin will need to be added as a second agent for rate control. Potassium being replaced. Serial troponins being obtained, d-dimer obtained-not highly suggestive of triggering PE. Lovenox initiated at 40 mg daily in conjunction with SCDs. Echocardiogram to be obtained. Cardiology consultation may be needed. Findings discussed with Dr. Bolton. No change in respiratory status; day 2 cefepime for Pseudomonas pneumonia. With hemodynamic instability will not attempt to taper steroids today. Continue BiPAP/supplemental O2. Blood pressure elevated overnight, transient drop with onset of A. fib. Anticipate adding losartan in conjunction with calcium alexi. 11/11/16 Converted back to sinus rhythm following initiation of Cardizem and slowing of heart rate yesterday. Heart rate in the 80s and 90s overnight and today. Blood pressure modestly elevated today following discontinuation of amlodipine; losartan initiated today at 50 mg daily, supplemental 50 mg dose given and daily dose increased to 100 mg daily effective tomorrow morning. Troponins obtained yesterday unremarkable. Stable to transfer back to the floor and resume prior care directed at stabilization of chronic respiratory disease. No overall change in respiratory status; Pseudomonas pneumonia treated with cefepime 11/09-11/10; switched to Zosyn 11/10 when found to be cefepime resistant. Continue Solu-Medrol at current dose today, if stable overnight will convert to prednisone tomorrow and begin slow titration Continue BiPAP/supplemental O2. Macrocytic anemia present, B-12 supplementation initiated 11/09 Hypernatremia improving, potassium improved today. Continue to monitor. PT/OT consults; began getting patient up to chair. 11/12/16 Remains in sinus rhythm by review of telemetry strips, single or-5P CT overnight. Blood pressure modestly elevated today with last 2 readings 155/96 and 139/86. Continue losartan 100 mg daily and diltiazem CD 240 mg daily-heart rate will permit increasing calcium alexi dose if needed. Slow improvement in respiratory status; Pseudomonas pneumonia treated with cefepime 11/09-11/10; switched to Zosyn 11/10 when found to be cefepime resistant. Anticipate 7 days Zosyn (currently day 3) Convert from Solu-Medrol to prednisone 60 mg daily. Continue BiPAP/supplemental O2. Macrocytic anemia present, B-12 supplementation initiated 11/09 Persistent hypernatremia, patient reports improved oral intake since tolerating increased time off BiPAP. Platelet count dropping-reassess tomorrow before discontinuing Lovenox. HIT Ab with a.m. labs. 11/13/16 I reviewed diagnoses with Forrest, his Shruti, and his mother: End-stage COPD with life threatening illness and complications including sepsis, pneumonia , A-fib with RVR, and immunocompromised status. I let them know that while his pneumonia looks better (but not resolved), his underlying status is still very serious and medically we have little more to offer him; nor do we expect his condition to improve much. This topic brought a response of great excitement from his , who verbally and emphatically exclaimed "Lola Brandon, the end is near!" with a smile on her face. When I asked her to explain her reaction, she replied that she believes that he will have a miracle, and will surprise all of us and Ulises will walk out of the hospital completely healed. Ulises and his mother also shared this enthusiasm, and both believed that he will completely recover from both his pneumonia and his end-stage lung disease. I again offered the concept of palliative care - focusing on symptom control, particularly for breathing. Both Ulises and Shruti were very quiet, and did not offer much response. I did not feel they were at a point emotionally to discuss hospice. I reviewed his limitations - unable to ambulate, feed himself, sit upright, perform self-cares, undergo bed bath without needing BiPAP - according to the Palliative Performance Scale he is currently at best 30%; at home he may have been up to 40%, both of which are associated with a very limited life expectancy. I again reviewed what his wishes are if he decompensates - he wants full, aggressive care. He currently rates his quality of life as excellent and wants to keep on living. I let them know that odds of survival if he codes are very slim, and the chance for recovery is even less than that. We reviewed discharge planning. They are opposed to skilled care and he intends on going home. His denies any caregiver stress/strain. Her vinnie is a major source of strength. She is hopeful he won't need BiPAP when he goes home. We reviewed what palliative care might look like at home - could possibly send him home with Ativan at a reduced frequency; morphine will require additional consideration given risk for respiratory suppression. His reports that she temporarily increases the flow rate at home if he becomes more short of breath. Oral intake is improving - Na still mildly elevated. Shruti reports that he has been drinking fluids much better today. BP has still been elevated - diastolics frequently range 90-100+. HR has not been bradycardic. Will increase diltiazem to 360 mg daily. Continue Zosyn (day 4 of 7) for pseudomonas pneumonia; Prednisone 60 mg daily; BiPAP; Nebs; and O2. Case management has filled out financial applications for home BiPAP. 11/14/16 Blood pressures remain high. Diltiazem increase to 360 mg was started today. Continue to monitor. Consider Lasix IV given the pitting edema (this is something he didn't have prior to admission per ). With elevated BNP, mild diuresis may help his breathing. Continue morphine and Ativan PRN air hunger/anxiety Day 5 () Zosyn for Pseudomonas pneumonia. Slow clinical improvement although has advanced disease 11/15/16 Advanced care directives discussed: Case management will bring DPOA form for Chalo to sign. We will have this notarized here. Code status clarified : No CPR, no intubation or mechanical ventilation. Living will: began discussion , and he was able to state that he doesn't want anything to keep him artificially alive (i.e. feeding tube). He was able to state that if he is unable to wake up while on BiPAP, then it should be removed. This will require additional discussion. I've asked Case Management to provide a [employer] [employer] brochure to open up further conversations. Medically, ongoing concerns with little to no improvements in respiratory status. Today is day 6 of 7 of Zosyn for pseudomonas pneumonia. He required BiPAP use for most of the day yesterday, although he was sleeping a lot. Leukocytosis is increasing (could be steroid effect, also could be another or worsening infection). Platelets have been low but improved today (also could be stress reaction vs. sepsis response) - HIT antibodies were negative. He is still hypernatremic though BUN is decreasing, though he has anasarca. Hgb also has dropped 3 gm since admission, so will check stool again for occult blood. With steroid use he is at higher risk for GI bleed. Nutritionally, he took in little yesterday. His last albumin was 3.1 and prealbumin was 30 on admit. Will repeat CMP in am to f/u on albumin level. Start eye drops to keep them moisturized - he has some difficulty closing his left eye. Overall we had a realistic conversation this am about expectations and goals of care. They are open to palliative treatment, knowing that we have little to offer medically and they both agreed that comfort/symptom control is important. Further palliative conversations would be beneficial, and they are agreeable to discussing this further with Dr. Montero, who I've contacted and discussed the case with. 11/17/16 17:17 Mr. Grider is stable. Antibiotics were completed yesterday. Electrolytes to be reassessed tomorrow. Blood pressure is low-normal since initiation of clonidine twice daily, dose reduced to once daily. Continue BiPAP at night and as needed during the day. Palliative care not readdressed at this time. Discussed with nursing. Discontinue telemetry.
[2016-11-17] MEDS: GABAPENTIN 300 MG CAPSULE PO SCH (20:32)
[2016-11-18] MEDS: PIPERACILLIN/TAZOBACTAM 3.375 GM in NS 100 ML IV SCH ×4 (02:34→20:51)
[2016-11-18] MEDS: SALINE FLUSH 10ml SYRINGE IVF PRN ×3 (03:05→14:25)
[2016-11-18] MEDS: BUDESONIDE INH.SOLN 0.5mg/2ml NEB AEROSOL SCH ×2 (07:24→18:59)
[2016-11-18] MEDS: ALBUTEROL/IPRATROPIUM 2.5mg-0.5mg/3ml NEB AEROSOL SCH ×4 (07:24→18:59)
[2016-11-18] MEDS: MORPHINE SULFATE 2mg INJECTION IVP PRN (08:39)
[2016-11-18] MEDS: LOSARTAN 100 MG TABLET PO SCH (09:12)
[2016-11-18] MEDS: PredniSONE 20 MG TABLET PO SCH (09:12)
[2016-11-18] MEDS: GUAIFENESIN/D-METHORPHAN 600mg/30mg TABLET PO SCH ×2 (09:12→20:25)
[2016-11-18] MEDS: FAMOTIDINE 20 MG TABLET PO SCH ×2 (09:12→20:25)
[2016-11-18] MEDS: DiltiaZEM CD 360 MG CAPSULE PO SCH (09:14)
[2016-11-18] MEDS: NYSTATIN 500,000 units/5 ml ORAL LIQUID PO SCH ×4 (09:59→20:25)
--- NOTE | 2016-11-18 15:45 | Progress Note ---
Subjective: Forrest was seen with his at the bedside. He was off BiPAP when seen and reports that he is trying to avoid becoming dependent on it when he is awake. Nursing indicated that oxygen saturation dropped into the 70s when he received morphine earlier this morning and at the same thing happened overnight with Roxanol; BiPAP was needed to stabilize oxygenation. Patient reported he was using morphine for air hunger at the time. Overall he feels better and indicated he was hungry this morning and that he was able to cough up some clear /white sputum last night. He continues to feel weak and fatigued but is exercising his legs in bed. He has not felt feverish and no fevers have been recorded. He denied nausea and is having bowel movements regularly. He denied dysuria or difficulty voiding. Objective Vital signs: Temperature 97.2 F 11/18/16 08:24 Pulse Rate 92 11/18/16 15:26 Respiratory Rate 18 11/18/16 15:26 Blood Pressure 154/84 H 11/18/16 15:26 Pulse Oximetry 99 11/18/16 15:26 I/O 950/300 EXAM General-NAD, alert HEENT-mild conjunctival injection, bilateral lateral conjunctival edema Lungs-mildly labored respirations with speech but talking in full sentences, diminished airflow throughout, anterior breath sounds clear Cardiac-regular rhythm, S1-S2 Abd-soft, nontender, bowel sounds present-hypoactive Ext-+2 edema bilateral lower extremities and elbows; lower extremity edema is slightly improved from prior days Neuro-moving extremities spontaneously Psych-flat affect and interacts appropriately - Height/Weight/BMI: Height 1.73 m Weight 76.7 kg Body Mass Index 26.1 Results - Labs CBC & Chem 7: 11/18/16 05:45 11/18/16 05:45 Labs: Segs 85, bands 2, lymphocytes 2, monocytes 10, metamyelocyte 1 - ABG Interpretation ABG results: - Imaging and Cardiology Chest x-ray Status: image reviewed by me (portable chest x-ray obtained-infiltrate left lung improved, pleural effusion/scarring on the right, no new pathology by my review.) Assessment and Plan (1) Acute on chronic respiratory failure with hypoxia and hypercapnia Current visit: Yes Status: Acute (2) Pneumonia Problem details: Pseudomonas, treated Current visit: Yes Status: Acute Resuscitation Status: Limited Code (not intubate, no CPR; may defibrillate/use medications) Assessment and Plan: Assessment Sepsis syndrome due to pneumonia - Leukocytosis, Tachycardia, tachypnea. ( Present on presentation in ED) Pneumonia - community acquired Leukocytosis Acute on chronic respiratory failure COPD - acute exacerbation Extensive COPD/Emphysema - suspect end stage disease Prior lung nodule - obscured effusion on CT at presentation. Multiple subacute rib and thoracic/lumbar vertebral compression fractures Postherpetic neuralgia Presumed osteoporosis Chronic steroid use HTN Hypernatremia (POA) Hypokalemia (POA) Thrush Significant pulmonary debility Plan Patient does not describe any new symptoms today however has been desaturating and white count is climbing. Chest x-ray without evidence of infiltrate. Completed 8-9 days of Zosyn ( discontinued today, I thought it been discontinued late on 11/16 however was still on medication list today). No urinary symptoms, PICC line left upper extremity-small amount of blood under dressing. Patient is afebrile. Given combined leukocytosis and hypoxia will obtain blood cultures today with one drawn through the PICC line. Patient and his report this still processing information provided by Dr. Montero and have not yet made a decision about future plans. Blood pressure stable today, may require increasing clonidine to twice a day but with other instability demonstrated today will not modify at this time. Potassium borderline high, hold replacement. HIT Ab reported out today-negative, platelet count has rebounded somewhat. Resume Lovenox 40 mg daily-patient using SCDs minimally so he can exercise his legs. Initial CT of the chest reviewed with the patient and his due to their questions regarding rib fractures. Left sided rib pain has improved progressively-interestingly fractures identified were subacute and on the right. DO NOT INTUBATE, no CPR; at present patient would want medications tried and a trial of defibrillation in the event of cardiac arrest. Supplemental history provided by the patient's and nursing. Remains at high risk for complications. Sepsis Assessment - Evaluation Sepsis screening result: No Definite Risk Hospital Course Summary Disclaimer: The visit summary below is not to be considered part of the above Progress Note. Hospital Course: Hospital Course: Assessment Sepsis syndrome due to pneumonia - Leukocytosis, Tachycardia, tachypnea. 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 Multiple subacute rib and thoracic/lumbar vertebral compression fractures Postherpetic neuralgia Presumed osteoporosis Chronic steroid use HTN Hypernatremia (POA) Hypokalemia (POA) Thrush Significant pulmonary debility 11/06/16-hospital admission Admit to inpatient status to the hospitalist team with Dr. Smalls attending. Given patient's significant lung disease and respiratory failure, it is expected his stay will be at least 2 overnights. IV azithromycin and IV Rocephin to cover for typical pathogens causing CAP. Methylprednisolone IV 125 mg every 6 hours, inhaled/nebulized budesonide, DuoNeb treatments and Acapella for respiratory symptoms. Continue home [place] dosage for his chronic pain related to recent rib fractures and postherpetic neuralgia. Will add Neurontin 300mg at night as well. SCDs and Lovenox for DVT prevention. Ongoing Telemetry to monitor tachycardia. Check ECHO due to elevated BNP - suspect significant pulmonary HTN due to his lung disease. Urinalysis, magnesium, and TSH for laboratory completeness. Consider RT and/or pulmonology consult. Discussed CODE STATUS with patient. He does not wish to receive CPR, however he is willing to be placed on a ventilator short-term should this be indicated given his respiratory condition. 11/07/16 Sepsis syndrome resolving. Continue Rocephin and azithromycin for pulmonary coverage (Day #2). Continue Solu-Medrol at 125mg IV q 6 hours. Neb treatments/acapella/Mucinex. Will consult Dr Bolton for pulmonary evaluation - not been able to see his medical office coordinator for ~1 year to due his severe pulmonary debility. ? if other medications or respiratory support would be beneficial. ? need for more help with ventilation. Concern that patient at end stage of his respiratory disease. Decrease IVF to 50cc/hr as patient taking oral in better. Sodium normalized at 143. Potassium increased to 3.4 - will give additional oral KCl and monitor. Nystatin started yesterday for thrush. Norvasc started yesterday due to significant BP elevation. Lorazepam as needed for anxiety/air hunger due to chronic respiratory failure. 11/08/16 Check CXR today - increasing oxygen needs (now on 4L) and weight is trending up. Fluid balance is positive. May need to consider stopping IVF and/or diuresing - Na level has improved to 144. K 3.4 - will give extra KDur. Chest discomfort this am, assoc. with increased dyspnea - will check trop. Echo pending. Hgb has trended down from 12 to 9.7 - check iron studies, vitamin B12, folate, check stool for occult blood. Platelets have also been trending down - will hold Lovenox for now. Continue Rocephin and azithromycin for pulmonary coverage (Day #3). Continue Solu-Medrol at 125mg IV q 6 hours. Neb treatments/acapella/Mucinex. Dr. Bolton has been consulted. High risk med: IV Ativan. 11/09/16 Antibiotics were changed to cefepime by pulmonology due to Pseudomonas growth. Sensitivities still pending. Patient requiring BiPAP constantly. Refusing to eat/drink due to respiratory distress. IV fluids were previously discontinued. Monitor for evidence of hydration. Will give another dose of Lasix 40 mg x 1 now given peripheral edema. Monitor I and O. Blood pressure is uncontrolled. Will increase amlodipine to 10 mg. May need to add another agent. Consider Romulo/ARB. Avoid beta alexi given his lung disease. Pulmonology will continue to follow. 11/10/16 Patient is critically ill with unstable cardiac rhythm and rate. 20 mg IV diltiazem given with minimal slowing of the heart rate at which point diltiazem drip ordered and patient was transferred to the CCU for further management. Amlodipine discontinued anticipating long-term conversion to diltiazem; magnesium level obtained in the event digitoxin will need to be added as a second agent for rate control. Potassium being replaced. Serial troponins being obtained, d-dimer obtained-not highly suggestive of triggering PE. Lovenox initiated at 40 mg daily in conjunction with SCDs. Echocardiogram to be obtained. Cardiology consultation may be needed. Findings discussed with Dr. Bolton. No change in respiratory status; day 2 cefepime for Pseudomonas pneumonia. With hemodynamic instability will not attempt to taper steroids today. Continue BiPAP/supplemental O2. Blood pressure elevated overnight, transient drop with onset of A. fib. Anticipate adding losartan in conjunction with calcium alexi. 11/11/16 Converted back to sinus rhythm following initiation of Cardizem and slowing of heart rate yesterday. Heart rate in the 80s and 90s overnight and today. Blood pressure modestly elevated today following discontinuation of amlodipine; losartan initiated today at 50 mg daily, supplemental 50 mg dose given and daily dose increased to 100 mg daily effective tomorrow morning. Troponins obtained yesterday unremarkable. Stable to transfer back to the floor and resume prior care directed at stabilization of chronic respiratory disease. No overall change in respiratory status; Pseudomonas pneumonia treated with cefepime 11/09-11/10; switched to Zosyn 11/10 when found to be cefepime resistant. Continue Solu-Medrol at current dose today, if stable overnight will convert to prednisone tomorrow and begin slow titration Continue BiPAP/supplemental O2. Macrocytic anemia present, B-12 supplementation initiated 11/09 Hypernatremia improving, potassium improved today. Continue to monitor. PT/OT consults; began getting patient up to chair. 11/12/16 Remains in sinus rhythm by review of telemetry strips, single or-5P CT overnight. Blood pressure modestly elevated today with last 2 readings 155/96 and 139/86. Continue losartan 100 mg daily and diltiazem CD 240 mg daily-heart rate will permit increasing calcium alexi dose if needed. Slow improvement in respiratory status; Pseudomonas pneumonia treated with cefepime 11/09-11/10; switched to Zosyn 11/10 when found to be cefepime resistant. Anticipate 7 days Zosyn (currently day 3) Convert from Solu-Medrol to prednisone 60 mg daily. Continue BiPAP/supplemental O2. Macrocytic anemia present, B-12 supplementation initiated 11/09 Persistent hypernatremia, patient reports improved oral intake since tolerating increased time off BiPAP. Platelet count dropping-reassess tomorrow before discontinuing Lovenox. HIT Ab with a.m. labs. 11/13/16 I reviewed diagnoses with Forrest, his Shruti, and his mother: End-stage COPD with life threatening illness and complications including sepsis, pneumonia , A-fib with RVR, and immunocompromised status. I let them know that while his pneumonia looks better (but not resolved), his underlying status is still very serious and medically we have little more to offer him; nor do we expect his condition to improve much. This topic brought a response of great excitement from his , who verbally and emphatically exclaimed "Lola Brandon, the end is near!" with a smile on her face. When I asked her to explain her reaction, she replied that she believes that he will have a miracle, and will surprise all of us and Ulises will walk out of the hospital completely healed. Ulises and his mother also shared this enthusiasm, and both believed that he will completely recover from both his pneumonia and his end-stage lung disease. I again offered the concept of palliative care - focusing on symptom control, particularly for breathing. Both Ulises and Shruti were very quiet, and did not offer much response. I did not feel they were at a point emotionally to discuss hospice. I reviewed his limitations - unable to ambulate, feed himself, sit upright, perform self-cares, undergo bed bath without needing BiPAP - according to the Palliative Performance Scale he is currently at best 30%; at home he may have been up to 40%, both of which are associated with a very limited life expectancy. I again reviewed what his wishes are if he decompensates - he wants full, aggressive care. He currently rates his quality of life as excellent and wants to keep on living. I let them know that odds of survival if he codes are very slim, and the chance for recovery is even less than that. We reviewed discharge planning. They are opposed to skilled care and he intends on going home. His denies any caregiver stress/strain. Her vinnie is a major source of strength. She is hopeful he won't need BiPAP when he goes home. We reviewed what palliative care might look like at home - could possibly send him home with Ativan at a reduced frequency; morphine will require additional consideration given risk for respiratory suppression. His reports that she temporarily increases the flow rate at home if he becomes more short of breath. Oral intake is improving - Na still mildly elevated. Shruti reports that he has been drinking fluids much better today. BP has still been elevated - diastolics frequently range 90-100+. HR has not been bradycardic. Will increase diltiazem to 360 mg daily. Continue Zosyn (day 4 of 7) for pseudomonas pneumonia; Prednisone 60 mg daily; BiPAP; Nebs; and O2. Case management has filled out financial applications for home BiPAP. 11/14/16 Blood pressures remain high. Diltiazem increase to 360 mg was started today. Continue to monitor. Consider Lasix IV given the pitting edema (this is something he didn't have prior to admission per ). With elevated BNP, mild diuresis may help his breathing. Continue morphine and Ativan PRN air hunger/anxiety Day 5 (of 7) Zosyn for Pseudomonas pneumonia. Slow clinical improvement although has advanced disease 11/15/16 Advanced care directives discussed: Case management will bring DPOA form for Chalo to sign. We will have this notarized here. Code status clarified : No CPR, no intubation or mechanical ventilation. Living will: began discussion , and he was able to state that he doesn't want anything to keep him artificially alive (i.e. feeding tube). He was able to state that if he is unable to wake up while on BiPAP, then it should be removed. This will require additional discussion. I've asked Case Management to provide a [employer] [employer] brochure to open up further conversations. Medically, ongoing concerns with little to no improvements in respiratory status. Today is day 6 of 7 of Zosyn for pseudomonas pneumonia. He required BiPAP use for most of the day yesterday, although he was sleeping a lot. Leukocytosis is increasing (could be steroid effect, also could be another or worsening infection). Platelets have been low but improved today (also could be stress reaction vs. sepsis response) - HIT antibodies were negative. He is still hypernatremic though BUN is decreasing, though he has anasarca. Hgb also has dropped 3 gm since admission, so will check stool again for occult blood. With steroid use he is at higher risk for GI bleed. Nutritionally, he took in little yesterday. His last albumin was 3.1 and prealbumin was 30 on admit. Will repeat CMP in am to f/u on albumin level. Start eye drops to keep them moisturized - he has some difficulty closing his left eye. Overall we had a realistic conversation this am about expectations and goals of care. They are open to palliative treatment, knowing that we have little to offer medically and they both agreed that comfort/symptom control is important. Further palliative conversations would be beneficial, and they are agreeable to discussing this further with Dr. Montero, who I've contacted and discussed the case with. 11/17/16 Mr. Grider is stable. Antibiotics were completed yesterday. Electrolytes to be reassessed tomorrow. Blood pressure is low-normal since initiation of clonidine twice daily, dose reduced to once daily. Continue BiPAP at night and as needed during the day. Palliative care not readdressed at this time. Discussed with nursing. Discontinue telemetry. 11/18/16 Patient does not describe any new symptoms today however has been desaturating and white count is climbing. Chest x-ray without evidence of infiltrate. Completed 8-9 days of Zosyn ( discontinued today, I thought it been discontinued late on 11/16 however was still on medication list today). No urinary symptoms, PICC line left upper extremity-small amount of blood under dressing. Patient is afebrile. Given combined leukocytosis and hypoxia will obtain blood cultures today with one drawn through the PICC line. Patient and his report this still processing information provided by Dr. Montero and have not yet made a decision about future plans. Blood pressure stable today, may require increasing clonidine to twice a day but with other instability demonstrated today will not modify at this time. Potassium borderline high, hold replacement. HIT Ab reported out today-negative, platelet count has rebounded somewhat. Resume Lovenox 40 mg daily-patient using SCDs minimally so he can exercise his legs.
[2016-11-18] MEDS: ENOXAPARIN 40 MG/0.4 ML INJECTION SQ SCH (16:29)
[2016-11-18] MEDS: GABAPENTIN 300 MG CAPSULE PO SCH (20:25)
[2016-11-19] MEDS: PIPERACILLIN/TAZOBACTAM 3.375 GM in NS 100 ML IV SCH ×4 (02:36→21:10)
[2016-11-19] MEDS: ALBUTEROL/IPRATROPIUM 2.5mg-0.5mg/3ml NEB AEROSOL SCH ×4 (06:51→19:44)
[2016-11-19] MEDS: BUDESONIDE INH.SOLN 0.5mg/2ml NEB AEROSOL SCH ×2 (06:51→19:44)
--- NOTE | 2016-11-19 07:50 | XRay Report ---
EXAM: XR chest 1V LOCATION OF DICTATION: [place] HISTORY: COPD, chronic respiratory failure COMPARISON: November 15, 2016, November 11, 2016, and November 09, 2016. FINDINGS: The heart size is within normal limits. Central pulmonary vasculature is normal. There is a stable small to moderate size right pleural effusion with subjacent atelectasis or infiltrates. There is mild left basilar atelectasis suggested. The patient is slightly rotated on the exam. There is no pneumothorax demonstrated. Chronic emphysema is again noted. Mild to moderate spondylosis of the thoracic spine. IMPRESSION: 1. Stable small to moderate-sized right pleural effusion with subjacent atelectasis or infiltrates. Mild left basilar atelectasis. 2. Chronic emphysema. 3. Heart size within normal limits. .
[2016-11-19] MEDS: PredniSONE 20 MG TABLET PO SCH (09:27)
[2016-11-19] MEDS: LOSARTAN 100 MG TABLET PO SCH (09:28)
[2016-11-19] MEDS: GUAIFENESIN/D-METHORPHAN 600mg/30mg TABLET PO SCH ×2 (09:28→21:10)
[2016-11-19] MEDS: FAMOTIDINE 20 MG TABLET PO SCH ×2 (09:28→21:10)
[2016-11-19] MEDS: NYSTATIN 500,000 units/5 ml ORAL LIQUID PO SCH ×4 (09:29→21:10)
[2016-11-19] MEDS: SALINE FLUSH 10ml SYRINGE IVF PRN ×3 (09:29→15:28)
[2016-11-19] MEDS: DiltiaZEM CD 360 MG CAPSULE PO SCH (09:30)
[2016-11-19] MEDS: ENOXAPARIN 40 MG/0.4 ML INJECTION SQ SCH (10:18)
[2016-11-19] MEDS: NS FLUSH BAG 500ml IV PRN (15:27)
--- NOTE | 2016-11-19 16:34 | Progress Note ---
Subjective: F/U: Pneumonia, Acute on chronic resp failure. Resting in bed with Bipap on. Breathing about the same-does have good times and bad. Bipap helping to decrease work of breathing. Was able to work with therapy doing bed exercises-feels maybe he will be up to setting up tomorrow. Eating okay. No nausea or ab pain. Bowels moving. No chest pressure or pain. Objective Vital signs: Temperature 99.0 F 11/19/16 15:00 Pulse Rate 93 11/19/16 15:00 Respiratory Rate 18 11/19/16 15:08 Blood Pressure 143/76 H 11/19/16 15:00 Pulse Oximetry 95 11/19/16 15:08 Rhythm: Normal Sinus Rhythm Height/Weight/BMI: Height 1.73 m Weight 77.8 kg Body Mass Index 26.1 - Constitutional Present: mild distress, well nourished, well developed, cooperative - Routine HEENT Exam Head: Present: normocephalic, atraumatic Eye: Present: EOMI, PERRL - Routine Respiratory Exam Present: decreased breath sounds, prolonged expiratory phase, distant breath sounds, diminished air movement. Absent: wheezes, crackles - Routine Cardiovascular Exam Present: RRR - Routine Abdominal Exam Present: soft, normoactive bowel sounds, non distended, non tender - Routine Extremities Exam Present: cyanosis, clubbing, edema (+2 BLE edema ) Comments: SCD in place - Routine Skin Exam Present: intact, dry, warm - Routine Neurological Exam Present: alert, CN II-XII intact, vision grossly intact, hearing grossly intact. Absent: motor deficit - Routine Psychiatric Exam Present: cooperative. Absent: anxious, agitated, paranoid Results - Labs CBC & Chem 7: 11/19/16 06:21 11/19/16 06:21 Microbiology Results: Microbiology 11/18/16 16:18 Cath/Port/Line/Picc Blood Culture - Preliminary No Growth After 1 Day 11/18/16 16:24 Cath/Port/Line/Picc Blood Culture - Preliminary No Growth After 1 Day - ABG Interpretation ABG results: 11/08/16 17:45 ABG pH 7.450 ABG pCO2 50 H ABG pO2 75 L ABG HCO3 35 H ABG Total CO2 36.3 H ABG O2 Saturation 96.0 ABG Base Excess 9.3 H Assessment and Plan (1) Pneumonia Problem details: Pseudomonas, treated Current visit: Yes Status: Acute (2) Acute on chronic respiratory failure with hypoxia and hypercapnia Current visit: Yes Status: Acute DVT Prophylaxis: SCD's Resuscitation Status: Limited Code Assessment and Plan: Assessment Sepsis syndrome due to pneumonia - Leukocytosis, Tachycardia, tachypnea. ( Present on presentation in ED) - resolved. 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 Multiple subacute rib and thoracic/lumbar vertebral compression fractures Postherpetic neuralgia Presumed osteoporosis Chronic steroid use Afib with RVR - converted spontaneously to NSR HTN Hypernatremia (POA) Hypokalemia (POA) Thrush Significant pulmonary debility Plan Leukocytosis decreasing. BC pending. Will continue with Zosyn, possible d/c Zosyn tomorrow if WBC decreasing and BC negative. Hold Lovenox as platelets showing decrease to 124. Encourage activities. Home ventilatory has arrived. Possible discharge in near future. Overall prognosis poor-end stage lung disease. Case discuss with CM. Time spent with patient care 25 minutes. Patient does not describe any new symptoms today however has been desaturating and white count is climbing. Chest x-ray without evidence of infiltrate. Completed 8-9 days of Zosyn ( discontinued today, I thought it been discontinued late on 11/16 however was still on medication list today). No urinary symptoms, PICC line left upper extremity-small amount of blood under dressing. Patient is afebrile. Given combined leukocytosis and hypoxia will obtain blood cultures today with one drawn through the PICC line. Patient and his report this still processing information provided by Dr. Montero and have not yet made a decision about future plans. Blood pressure stable today, may require increasing clonidine to twice a day but with other instability demonstrated today will not modify at this time. Potassium borderline high, hold replacement. HIT Ab reported out today-negative, platelet count has rebounded somewhat. Resume Lovenox 40 mg daily-patient using SCDs minimally so he can exercise his legs. Initial CT of the chest reviewed with the patient and his due to their questions regarding rib fractures. Left sided rib pain has improved progressively-interestingly fractures identified were subacute and on the right. DO NOT INTUBATE, no CPR; at present patient would want medications tried and a trial of defibrillation in the event of cardiac arrest. Supplemental history provided by the patient's and nursing. Remains at high risk for complications. - Time spent with patient 25 - 35 minutes Sepsis Assessment - Evaluation Sepsis screening result: No Definite Risk Hospital Course Summary Disclaimer: The visit summary below is not to be considered part of the above Progress Note. Hospital Course: Hospital Course: Assessment Sepsis syndrome due to pneumonia - Leukocytosis, Tachycardia, tachypnea. 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 Multiple subacute rib and thoracic/lumbar vertebral compression fractures Postherpetic neuralgia Presumed osteoporosis Chronic steroid use HTN Hypernatremia (POA) Hypokalemia (POA) Thrush Significant pulmonary debility 11/06/16-hospital admission Admit to inpatient status to the hospitalist team with Dr. Smalls attending. Given patient's significant lung disease and respiratory failure, it is expected his stay will be at least 2 overnights. IV azithromycin and IV Rocephin to cover for typical pathogens causing CAP. Methylprednisolone IV 125 mg every 6 hours, inhaled/nebulized budesonide, DuoNeb treatments and Acapella for respiratory symptoms. Continue home [place] dosage for his chronic pain related to recent rib fractures and postherpetic neuralgia. Will add Neurontin 300mg at night as well. SCDs and Lovenox for DVT prevention. Ongoing Telemetry to monitor tachycardia. Check ECHO due to elevated BNP - suspect significant pulmonary HTN due to his lung disease. Urinalysis, magnesium, and TSH for laboratory completeness. Consider RT and/or pulmonology consult. Discussed CODE STATUS with patient. He does not wish to receive CPR, however he is willing to be placed on a ventilator short-term should this be indicated given his respiratory condition. 11/07/16 Sepsis syndrome resolving. Continue Rocephin and azithromycin for pulmonary coverage (Day #2). Continue Solu-Medrol at 125mg IV q 6 hours. Neb treatments/acapella/Mucinex. Will consult Dr Bolton for pulmonary evaluation - not been able to see his child neurologist for ~1 year to due his severe pulmonary debility. ? if other medications or respiratory support would be beneficial. ? need for more help with ventilation. Concern that patient at end stage of his respiratory disease. Decrease IVF to 50cc/hr as patient taking oral in better. Sodium normalized at 143. Potassium increased to 3.4 - will give additional oral KCl and monitor. Nystatin started yesterday for thrush. Norvasc started yesterday due to significant BP elevation. Lorazepam as needed for anxiety/air hunger due to chronic respiratory failure. 11/08/16 Check CXR today - increasing oxygen needs (now on 4L) and weight is trending up. Fluid balance is positive. May need to consider stopping IVF and/or diuresing - Na level has improved to 144. K 3.4 - will give extra KDur. Chest discomfort this am, assoc. with increased dyspnea - will check trop. Echo pending. Hgb has trended down from 12 to 9.7 - check iron studies, vitamin B12, folate, check stool for occult blood. Platelets have also been trending down - will hold Lovenox for now. Continue Rocephin and azithromycin for pulmonary coverage (Day #3). Continue Solu-Medrol at 125mg IV q 6 hours. Neb treatments/acapella/Mucinex. Dr. Bolton has been consulted. High risk med: IV Ativan. 11/09/16 Antibiotics were changed to cefepime by pulmonology due to Pseudomonas growth. Sensitivities still pending. Patient requiring BiPAP constantly. Refusing to eat/drink due to respiratory distress. IV fluids were previously discontinued. Monitor for evidence of hydration. Will give another dose of Lasix 40 mg x 1 now given peripheral edema. Monitor I and O. Blood pressure is uncontrolled. Will increase amlodipine to 10 mg. May need to add another agent. Consider Romluo/ARB. Avoid beta alexi given his lung disease. Pulmonology will continue to follow. 11/10/16 Patient is critically ill with unstable cardiac rhythm and rate. 20 mg IV diltiazem given with minimal slowing of the heart rate at which point diltiazem drip ordered and patient was transferred to the CCU for further management. Amlodipine discontinued anticipating long-term conversion to diltiazem; magnesium level obtained in the event digitoxin will need to be added as a second agent for rate control. Potassium being replaced. Serial troponins being obtained, d-dimer obtained-not highly suggestive of triggering PE. Lovenox initiated at 40 mg daily in conjunction with SCDs. Echocardiogram to be obtained. Cardiology consultation may be needed. Findings discussed with Dr. Bolton. No change in respiratory status; day 2 cefepime for Pseudomonas pneumonia. With hemodynamic instability will not attempt to taper steroids today. Continue BiPAP/supplemental O2. Blood pressure elevated overnight, transient drop with onset of A. fib. Anticipate adding losartan in conjunction with calcium alexi. 11/11/16 Converted back to sinus rhythm following initiation of Cardizem and slowing of heart rate yesterday. Heart rate in the 80s and 90s overnight and today. Blood pressure modestly elevated today following discontinuation of amlodipine; losartan initiated today at 50 mg daily, supplemental 50 mg dose given and daily dose increased to 100 mg daily effective tomorrow morning. Troponins obtained yesterday unremarkable. Stable to transfer back to the floor and resume prior care directed at stabilization of chronic respiratory disease. No overall change in respiratory status; Pseudomonas pneumonia treated with cefepime 11/09-11/10; switched to Zosyn 11/10 when found to be cefepime resistant. Continue Solu-Medrol at current dose today, if stable overnight will convert to prednisone tomorrow and begin slow titration Continue BiPAP/supplemental O2. Macrocytic anemia present, B-12 supplementation initiated 11/09 Hypernatremia improving, potassium improved today. Continue to monitor. PT/OT consults; began getting patient up to chair. 11/12/16 Remains in sinus rhythm by review of telemetry strips, single or-5P CT overnight. Blood pressure modestly elevated today with last 2 readings 155/96 and 139/86. Continue losartan 100 mg daily and diltiazem CD 240 mg daily-heart rate will permit increasing calcium alexi dose if needed. Slow improvement in respiratory status; Pseudomonas pneumonia treated with cefepime 11/09-11/10; switched to Zosyn 11/10 when found to be cefepime resistant. Anticipate 7 days Zosyn (currently day 3) Convert from Solu-Medrol to prednisone 60 mg daily. Continue BiPAP/supplemental O2. Macrocytic anemia present, B-12 supplementation initiated 11/09 Persistent hypernatremia, patient reports improved oral intake since tolerating increased time off BiPAP. Platelet count dropping-reassess tomorrow before discontinuing Lovenox. HIT Ab with a.m. labs. 11/13/16 I reviewed diagnoses with Forrest, his Shruti, and his mother: End-stage COPD with life threatening illness and complications including sepsis, pneumonia , A-fib with RVR, and immunocompromised status. I let them know that while his pneumonia looks better (but not resolved), his underlying status is still very serious and medically we have little more to offer him; nor do we expect his condition to improve much. This topic brought a response of great excitement from his , who verbally and emphatically exclaimed "Lola Brandon, the end is near!" with a smile on her face. When I asked her to explain her reaction, she replied that she believes that he will have a miracle, and will surprise all of us and Ulises will walk out of the hospital completely healed. Ulises and his mother also shared this enthusiasm, and both believed that he will completely recover from both his pneumonia and his end-stage lung disease. I again offered the concept of palliative care - focusing on symptom control, particularly for breathing. Both Ulises and Shruti were very quiet, and did not offer much response. I did not feel they were at a point emotionally to discuss hospice. I reviewed his limitations - unable to ambulate, feed himself, sit upright, perform self-cares, undergo bed bath without needing BiPAP - according to the Palliative Performance Scale he is currently at best 30%; at home he may have been up to 40%, both of which are associated with a very limited life expectancy. I again reviewed what his wishes are if he decompensates - he wants full, aggressive care. He currently rates his quality of life as excellent and wants to keep on living. I let them know that odds of survival if he codes are very slim, and the chance for recovery is even less than that. We reviewed discharge planning. They are opposed to skilled care and he intends on going home. His denies any caregiver stress/strain. Her vinnie is a major source of strength. She is hopeful he won't need BiPAP when he goes home. We reviewed what palliative care might look like at home - could possibly send him home with Ativan at a reduced frequency; morphine will require additional consideration given risk for respiratory suppression. His reports that she temporarily increases the flow rate at home if he becomes more short of breath. Oral intake is improving - Na still mildly elevated. Shruti reports that he has been drinking fluids much better today. BP has still been elevated - diastolics frequently range 90-100+. HR has not been bradycardic. Will increase diltiazem to 360 mg daily. Continue Zosyn (day 4 of 7) for pseudomonas pneumonia; Prednisone 60 mg daily; BiPAP; Nebs; and O2. Case management has filled out financial applications for home BiPAP. 11/14/16 Blood pressures remain high. Diltiazem increase to 360 mg was started today. Continue to monitor. Consider Lasix IV given the pitting edema (this is something he didn't have prior to admission per ). With elevated BNP, mild diuresis may help his breathing. Continue morphine and Ativan PRN air hunger/anxiety Day 5 () Zosyn for Pseudomonas pneumonia. Slow clinical improvement although has advanced disease 11/15/16 Advanced care directives discussed: Case management will bring DPOA form for Chalo to sign. We will have this notarized here. Code status clarified : No CPR, no intubation or mechanical ventilation. Living will: began discussion , and he was able to state that he doesn't want anything to keep him artificially alive (i.e. feeding tube). He was able to state that if he is unable to wake up while on BiPAP, then it should be removed. This will require additional discussion. I've asked Case Management to provide a [employer] [employer] brochure to open up further conversations. Medically, ongoing concerns with little to no improvements in respiratory status. Today is day 6 of 7 of Zosyn for pseudomonas pneumonia. He required BiPAP use for most of the day yesterday, although he was sleeping a lot. Leukocytosis is increasing (could be steroid effect, also could be another or worsening infection). Platelets have been low but improved today (also could be stress reaction vs. sepsis response) - HIT antibodies were negative. He is still hypernatremic though BUN is decreasing, though he has anasarca. Hgb also has dropped 3 gm since admission, so will check stool again for occult blood. With steroid use he is at higher risk for GI bleed. Nutritionally, he took in little yesterday. His last albumin was 3.1 and prealbumin was 30 on admit. Will repeat CMP in am to f/u on albumin level. Start eye drops to keep them moisturized - he has some difficulty closing his left eye. Overall we had a realistic conversation this am about expectations and goals of care. They are open to palliative treatment, knowing that we have little to offer medically and they both agreed that comfort/symptom control is important. Further palliative conversations would be beneficial, and they are agreeable to discussing this further with Dr. Montero, who I've contacted and discussed the case with. 11/17/16 Mr. Grider is stable. Antibiotics were completed yesterday. Electrolytes to be reassessed tomorrow. Blood pressure is low-normal since initiation of clonidine twice daily, dose reduced to once daily. Continue BiPAP at night and as needed during the day. Palliative care not readdressed at this time. Discussed with nursing. Discontinue telemetry. 11/18/16 Patient does not describe any new symptoms today however has been desaturating and white count is climbing. Chest x-ray without evidence of infiltrate. Completed 8-9 days of Zosyn ( discontinued today, I thought it been discontinued late on 11/16 however was still on medication list today). No urinary symptoms, PICC line left upper extremity-small amount of blood under dressing. Patient is afebrile. Given combined leukocytosis and hypoxia will obtain blood cultures today with one drawn through the PICC line. Patient and his report this still processing information provided by Dr. Montero and have not yet made a decision about future plans. Blood pressure stable today, may require increasing clonidine to twice a day but with other instability demonstrated today will not modify at this time. Potassium borderline high, hold replacement. HIT Ab reported out today-negative, platelet count has rebounded somewhat. Resume Lovenox 40 mg daily-patient using SCDs minimally so he can exercise his legs. 11/19/16 Leukocytosis decreasing. BC pending. Will continue with Zosyn, possible d/c Zosyn tomorrow if WBC decreasing and BC negative. Hold Lovenox as platelets showing decrease to 124. Encourage activities. Home ventilatory has arrived. Possible discharge in near future. Overall prognosis poor-end stage lung disease.
[2016-11-19] MEDS: GABAPENTIN 300 MG CAPSULE PO SCH (21:10)
[2016-11-20] MEDS: PIPERACILLIN/TAZOBACTAM 3.375 GM in NS 100 ML IV SCH ×3 (02:32→15:07)
[2016-11-20] MEDS: SALINE FLUSH 10ml SYRINGE IVF PRN ×5 (05:18→17:32)
[2016-11-20] MEDS: ALBUTEROL/IPRATROPIUM 2.5mg-0.5mg/3ml NEB AEROSOL SCH ×4 (06:44→19:59)
[2016-11-20] MEDS: BUDESONIDE INH.SOLN 0.5mg/2ml NEB AEROSOL SCH ×2 (06:44→19:58)
[2016-11-20] MEDS: ENOXAPARIN 40 MG/0.4 ML INJECTION SQ SCH (08:35)
[2016-11-20] MEDS: PredniSONE 20 MG TABLET PO SCH (08:35)
[2016-11-20] MEDS: NYSTATIN 500,000 units/5 ml ORAL LIQUID PO SCH ×4 (09:31→21:04)
[2016-11-20] MEDS: GUAIFENESIN/D-METHORPHAN 600mg/30mg TABLET PO SCH ×2 (09:34→21:04)
[2016-11-20] MEDS: LOSARTAN 100 MG TABLET PO SCH (09:34)
[2016-11-20] MEDS: FAMOTIDINE 20 MG TABLET PO SCH ×2 (09:34→21:04)
[2016-11-20] MEDS: DiltiaZEM CD 360 MG CAPSULE PO SCH (09:36)
[2016-11-20] MEDS: LORazepam 0.5 MG TABLET PO PRN (15:07)
--- NOTE | 2016-11-20 18:06 | Progress Note ---
Subjective: F/U: Pneumonia, Acute on chronic resp failure. About the same today. Activities difficult do to discomfort across back and chest. Trying to do arm/leg activities when in bed. Breathing the same. Able to be off BiPAP for short periods. Appetite good-no nausea or ab pain. No pain with chewing or swallowing. Stools stable-not loose. Urinating well. Objective Vital signs: Temperature 97.7 F 11/20/16 15:48 Pulse Rate 87 11/20/16 15:48 Respiratory Rate 19 11/20/16 15:48 Blood Pressure 135/79 11/20/16 15:48 Pulse Oximetry 98 11/20/16 15:48 Rhythm: Normal Sinus Rhythm Height/Weight/BMI: Height 1.73 m Weight 77.4 kg Body Mass Index 26.1 - Constitutional Present: mild distress, well nourished, well developed, other (Appeares tired and weak) - Routine HEENT Exam Head: Present: normocephalic, atraumatic Eye: Present: EOMI, PERRL - Routine Respiratory Exam Present: decreased breath sounds, prolonged expiratory phase, distant breath sounds, diminished air movement - Routine Cardiovascular Exam Present: RRR - Routine Abdominal Exam Present: soft, non distended, non tender - Routine Extremities Exam Present: edema (+2 BLE). Absent: cyanosis, clubbing - Routine Neurological Exam Present: alert, CN II-XII intact, vision grossly intact, hearing grossly intact - Routine Psychiatric Exam Present: normal affect, cooperative. Absent: anxious Results - Labs CBC & Chem 7: 11/20/16 04:38 11/20/16 04:38 Microbiology Results: Microbiology 11/18/16 16:18 Cath/Port/Line/Picc Blood Culture - Preliminary No Growth After 2 Days 11/18/16 16:24 Cath/Port/Line/Picc Blood Culture - Preliminary No Growth After 2 Days - ABG Interpretation ABG results: 11/08/16 17:45 ABG pH 7.450 ABG pCO2 50 H ABG pO2 75 L ABG HCO3 35 H ABG Total CO2 36.3 H ABG O2 Saturation 96.0 ABG Base Excess 9.3 H Assessment and Plan (1) Pneumonia Problem details: Pseudomonas, treated Current visit: Yes Status: Acute (2) Acute on chronic respiratory failure with hypoxia and hypercapnia Current visit: Yes Status: Acute DVT Prophylaxis: SCD's Resuscitation Status: Limited Code Assessment and Plan: Assessment Sepsis syndrome due to pneumonia - Leukocytosis, Tachycardia, tachypnea. ( Present on presentation in ED) - resolved. 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 Multiple subacute rib and thoracic/lumbar vertebral compression fractures Postherpetic neuralgia Presumed osteoporosis Chronic steroid use Afib with RVR - converted spontaneously to NSR HTN Hypernatremia (POA) Hypokalemia (POA) Thrush Significant pulmonary debility Plan Leukocytosis decreasing - 14.3. BC without growth to date. Stop Zosyn - monitor WBC and clinical status without. Continue Prednisone at 40mg orally. Will keep Lovenox on hold - platelets 109 this am. Encourage activities. Home ventilatory has arrived. Possible discharge in near future. Overall prognosis poor-end stage lung disease. Case discuss with CM. Time spent with patient care 25 minutes. Sepsis Assessment - Evaluation Sepsis screening result: No Definite Risk Hospital Course Summary Disclaimer: The visit summary below is not to be considered part of the above Progress Note. Hospital Course: Hospital Course: Assessment Sepsis syndrome due to pneumonia - Leukocytosis, Tachycardia, tachypnea. 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 Multiple subacute rib and thoracic/lumbar vertebral compression fractures Postherpetic neuralgia Presumed osteoporosis Chronic steroid use HTN Hypernatremia (POA) Hypokalemia (POA) Thrush Significant pulmonary debility 11/06/16-hospital admission Admit to inpatient status to the hospitalist team with Dr. Smalls attending. Given patient's significant lung disease and respiratory failure, it is expected his stay will be at least 2 overnights. IV azithromycin and IV Rocephin to cover for typical pathogens causing CAP. Methylprednisolone IV 125 mg every 6 hours, inhaled/nebulized budesonide, DuoNeb treatments and Acapella for respiratory symptoms. Continue home [place] dosage for his chronic pain related to recent rib fractures and postherpetic neuralgia. Will add Neurontin 300mg at night as well. SCDs and Lovenox for DVT prevention. Ongoing Telemetry to monitor tachycardia. Check ECHO due to elevated BNP - suspect significant pulmonary HTN due to his lung disease. Urinalysis, magnesium, and TSH for laboratory completeness. Consider RT and/or pulmonology consult. Discussed CODE STATUS with patient. He does not wish to receive CPR, however he is willing to be placed on a ventilator short-term should this be indicated given his respiratory condition. 11/07/16 Sepsis syndrome resolving. Continue Rocephin and azithromycin for pulmonary coverage (Day #2). Continue Solu-Medrol at 125mg IV q 6 hours. Neb treatments/acapella/Mucinex. 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 ? if other medications or respiratory support would be beneficial. ? need for more help with ventilation. Concern that patient at end stage of his respiratory disease. Decrease IVF to 50cc/hr as patient taking oral in better. Sodium normalized at 143. Potassium increased to 3.4 - will give additional oral KCl and monitor. Nystatin started yesterday for thrush. Norvasc started yesterday due to significant BP elevation. Lorazepam as needed for anxiety/air hunger due to chronic respiratory failure. 11/08/16 Check CXR today - increasing oxygen needs (now on 4L) and weight is trending up. Fluid balance is positive. May need to consider stopping IVF and/or diuresing - Na level has improved to 144. K 3.4 - will give extra KDur. Chest discomfort this am, assoc. with increased dyspnea - will check trop. Echo pending. Hgb has trended down from 12 to 9.7 - check iron studies, vitamin B12, folate, check stool for occult blood. Platelets have also been trending down - will hold Lovenox for now. Continue Rocephin and azithromycin for pulmonary coverage (Day #3). Continue Solu-Medrol at 125mg IV q 6 hours. Neb treatments/acapella/Mucinex. Dr. Bolton has been consulted. High risk med: IV Ativan. 11/09/16 Antibiotics were changed to cefepime by pulmonology due to Pseudomonas growth. Sensitivities still pending. Patient requiring BiPAP constantly. Refusing to eat/drink due to respiratory distress. IV fluids were previously discontinued. Monitor for evidence of hydration. Will give another dose of Lasix 40 mg x 1 now given peripheral edema. Monitor I and O. Blood pressure is uncontrolled. Will increase amlodipine to 10 mg. May need to add another agent. Consider Romulo/ARB. Avoid beta alexi given his lung disease. Pulmonology will continue to follow. 11/10/16 Patient is critically ill with unstable cardiac rhythm and rate. 20 mg IV diltiazem given with minimal slowing of the heart rate at which point diltiazem drip ordered and patient was transferred to the CCU for further management. Amlodipine discontinued anticipating long-term conversion to diltiazem; magnesium level obtained in the event digitoxin will need to be added as a second agent for rate control. Potassium being replaced. Serial troponins being obtained, d-dimer obtained-not highly suggestive of triggering PE. Lovenox initiated at 40 mg daily in conjunction with SCDs. Echocardiogram to be obtained. Cardiology consultation may be needed. Findings discussed with Dr. Bolton. No change in respiratory status; day 2 cefepime for Pseudomonas pneumonia. With hemodynamic instability will not attempt to taper steroids today. Continue BiPAP/supplemental O2. Blood pressure elevated overnight, transient drop with onset of A. fib. Anticipate adding losartan in conjunction with calcium alexi. 11/11/16 Converted back to sinus rhythm following initiation of Cardizem and slowing of heart rate yesterday. Heart rate in the 80s and 90s overnight and today. Blood pressure modestly elevated today following discontinuation of amlodipine; losartan initiated today at 50 mg daily, supplemental 50 mg dose given and daily dose increased to 100 mg daily effective tomorrow morning. Troponins obtained yesterday unremarkable. Stable to transfer back to the floor and resume prior care directed at stabilization of chronic respiratory disease. No overall change in respiratory status; Pseudomonas pneumonia treated with cefepime 11/09-11/10; switched to Zosyn 11/10 when found to be cefepime resistant. Continue Solu-Medrol at current dose today, if stable overnight will convert to prednisone tomorrow and begin slow titration Continue BiPAP/supplemental O2. Macrocytic anemia present, B-12 supplementation initiated 11/09 Hypernatremia improving, potassium improved today. Continue to monitor. PT/OT consults; began getting patient up to chair. 11/12/16 Remains in sinus rhythm by review of telemetry strips, single or-5P CT overnight. Blood pressure modestly elevated today with last 2 readings 155/96 and 139/86. Continue losartan 100 mg daily and diltiazem CD 240 mg daily-heart rate will permit increasing calcium alexi dose if needed. Slow improvement in respiratory status; Pseudomonas pneumonia treated with cefepime 11/09-11/10; switched to Zosyn 11/10 when found to be cefepime resistant. Anticipate 7 days Zosyn (currently day 3) Convert from Solu-Medrol to prednisone 60 mg daily. Continue BiPAP/supplemental O2. Macrocytic anemia present, B-12 supplementation initiated 11/09 Persistent hypernatremia, patient reports improved oral intake since tolerating increased time off BiPAP. Platelet count dropping-reassess tomorrow before discontinuing Lovenox. HIT Ab with a.m. labs. 11/13/16 I reviewed diagnoses with Forrest, his Shruti, and his mother: End-stage COPD with life threatening illness and complications including sepsis, pneumonia , A-fib with RVR, and immunocompromised status. I let them know that while his pneumonia looks better (but not resolved), his underlying status is still very serious and medically we have little more to offer him; nor do we expect his condition to improve much. This topic brought a response of great excitement from his , who verbally and emphatically exclaimed "Lola Brandon, the end is near!" with a smile on her face. When I asked her to explain her reaction, she replied that she believes that he will have a miracle, and will surprise all of us and Ulises will walk out of the hospital completely healed. Ulises and his mother also shared this enthusiasm, and both believed that he will completely recover from both his pneumonia and his end-stage lung disease. I again offered the concept of palliative care - focusing on symptom control, particularly for breathing. Both Ulises and Shruti were very quiet, and did not offer much response. I did not feel they were at a point emotionally to discuss hospice. I reviewed his limitations - unable to ambulate, feed himself, sit upright, perform self-cares, undergo bed bath without needing BiPAP - according to the Palliative Performance Scale he is currently at best 30%; at home he may have been up to 40%, both of which are associated with a very limited life expectancy. I again reviewed what his wishes are if he decompensates - he wants full, aggressive care. He currently rates his quality of life as excellent and wants to keep on living. I let them know that odds of survival if he codes are very slim, and the chance for recovery is even less than that. We reviewed discharge planning. They are opposed to skilled care and he intends on going home. His denies any caregiver stress/strain. Her vinnie is a major source of strength. She is hopeful he won't need BiPAP when he goes home. We reviewed what palliative care might look like at home - could possibly send him home with Ativan at a reduced frequency; morphine will require additional consideration given risk for respiratory suppression. His reports that she temporarily increases the flow rate at home if he becomes more short of breath. Oral intake is improving - Na still mildly elevated. Shruti reports that he has been drinking fluids much better today. BP has still been elevated - diastolics frequently range 90-100+. HR has not been bradycardic. Will increase diltiazem to 360 mg daily. Continue Zosyn (day 4 of 7) for pseudomonas pneumonia; Prednisone 60 mg daily; BiPAP; Nebs; and O2. Case management has filled out financial applications for home BiPAP. 11/14/16 Blood pressures remain high. Diltiazem increase to 360 mg was started today. Continue to monitor. Consider Lasix IV given the pitting edema (this is something he didn't have prior to admission per ). With elevated BNP, mild diuresis may help his breathing. Continue morphine and Ativan PRN air hunger/anxiety Day 5 (of 7) Zosyn for Pseudomonas pneumonia. Slow clinical improvement although has advanced disease 11/15/16 Advanced care directives discussed: Case management will bring DPOA form for Chalo to sign. We will have this notarized here. Code status clarified : No CPR, no intubation or mechanical ventilation. Living will: began discussion , and he was able to state that he doesn't want anything to keep him artificially alive (i.e. feeding tube). He was able to state that if he is unable to wake up while on BiPAP, then it should be removed. This will require additional discussion. I've asked Case Management to provide a Caring [employer]vers[employer] brochure to open up further conversations. Medically, ongoing concerns with little to no improvements in respiratory status. Today is day 6 of 7 of Zosyn for pseudomonas pneumonia. He required BiPAP use for most of the day yesterday, although he was sleeping a lot. Leukocytosis is increasing (could be steroid effect, also could be another or worsening infection). Platelets have been low but improved today (also could be stress reaction vs. sepsis response) - HIT antibodies were negative. He is still hypernatremic though BUN is decreasing, though he has anasarca. Hgb also has dropped 3 gm since admission, so will check stool again for occult blood. With steroid use he is at higher risk for GI bleed. Nutritionally, he took in little yesterday. His last albumin was 3.1 and prealbumin was 30 on admit. Will repeat CMP in am to f/u on albumin level. Start eye drops to keep them moisturized - he has some difficulty closing his left eye. Overall we had a realistic conversation this am about expectations and goals of care. They are open to palliative treatment, knowing that we have little to offer medically and they both agreed that comfort/symptom control is important. Further palliative conversations would be beneficial, and they are agreeable to discussing this further with Dr. Montero, who I've contacted and discussed the case with. 11/17/16 Mr. Grider is stable. Antibiotics were completed yesterday. Electrolytes to be reassessed tomorrow. Blood pressure is low-normal since initiation of clonidine twice daily, dose reduced to once daily. Continue BiPAP at night and as needed during the day. Palliative care not readdressed at this time. Discussed with nursing. Discontinue telemetry. 11/18/16 Patient does not describe any new symptoms today however has been desaturating and white count is climbing. Chest x-ray without evidence of infiltrate. Completed 8-9 days of Zosyn ( discontinued today, I thought it been discontinued late on 11/16 however was still on medication list today). No urinary symptoms, PICC line left upper extremity-small amount of blood under dressing. Patient is afebrile. Given combined leukocytosis and hypoxia will obtain blood cultures today with one drawn through the PICC line. Patient and his report this still processing information provided by Dr. Montero and have not yet made a decision about future plans. Blood pressure stable today, may require increasing clonidine to twice a day but with other instability demonstrated today will not modify at this time. Potassium borderline high, hold replacement. HIT Ab reported out today-negative, platelet count has rebounded somewhat. Resume Lovenox 40 mg daily-patient using SCDs minimally so he can exercise his legs. 11/19/16 Leukocytosis decreasing. BC pending. Will continue with Zosyn, possible d/c Zosyn tomorrow if WBC decreasing and BC negative. Hold Lovenox as platelets showing decrease to 124. Encourage activities. Home ventilatory has arrived. Possible discharge in near future. Overall prognosis poor-end stage lung disease. 11/20/16 Leukocytosis decreasing - 14.3. BC without growth to date. Stop Zosyn - monitor WBC and clinical status without. Continue Prednisone at 40mg orally. Will keep Lovenox on hold - platelets 109 this am. Encourage activities.
[2016-11-20] MEDS: GABAPENTIN 300 MG CAPSULE PO SCH (21:04)
[2016-11-21] MEDS: BUDESONIDE INH.SOLN 0.5mg/2ml NEB AEROSOL SCH ×2 (06:57→19:18)
[2016-11-21] MEDS: ALBUTEROL/IPRATROPIUM 2.5mg-0.5mg/3ml NEB AEROSOL SCH ×4 (06:57→19:18)
[2016-11-21] MEDS: SALINE FLUSH 10ml SYRINGE IVF PRN ×2 (07:38→18:14)
[2016-11-21] MEDS: NYSTATIN 500,000 units/5 ml ORAL LIQUID PO SCH ×4 (08:45→21:41)
[2016-11-21] MEDS: DiltiaZEM CD 360 MG CAPSULE PO SCH (08:45)
[2016-11-21] MEDS: LOSARTAN 100 MG TABLET PO SCH (08:45)
[2016-11-21] MEDS: FAMOTIDINE 20 MG TABLET PO SCH ×2 (08:45→21:41)
[2016-11-21] MEDS: PredniSONE 20 MG TABLET PO SCH (08:46)
[2016-11-21] MEDS: GUAIFENESIN/D-METHORPHAN 600mg/30mg TABLET PO SCH ×2 (08:46→21:41)
[2016-11-21 09:08] VITALS: BMI 25.4
--- NOTE | 2016-11-21 10:59 | Pulmonology Progress Note ---
Subjective Principal diagnosis: SOB Interval history: still on bipap for most of the day, still notices SOB. minimal cough and sputum noted. Exam Vital signs: Temperature 97.6 F 11/21/16 07:00 Pulse Rate 85 11/21/16 07:00 Respiratory Rate 16 11/21/16 07:00 Blood Pressure 161/81 H 11/21/16 07:00 Pulse Oximetry 96 11/21/16 07:00 - Constitutional mild distress, obese - Routine HEENT Exam Head: Present: normocephalic, atraumatic Eye: Present: PERRL - Routine Neck Exam Present: supple, full ROM - Routine Respiratory Exam Present: decreased breath sounds - Routine Cardiovascular Exam Present: RRR, no murmur - Routine Abdominal Exam Present: soft, normoactive bowel sounds - Routine Extremities Exam Present: no edema, full ROM - Routine Back/Spine/Pelvis Exam Back/Spine: Present: full ROM - Routine Skin Exam Present: intact, dry - Routine Neurological Exam Present: alert, oriented X3, CN II-XII intact - Routine Psychiatric Exam Present: normal affect, normal thought process Progress Note-A&P (1) Acute on chronic respiratory failure with hypoxia and hypercapnia Status: Acute Assessment and plan: Currently mainly on bipap throughout the day and all night, still notices SOB. Trilogy vent at home, needs to bring in so he can get comfortable using. Poor prognosis and would benefit from hospice at home. Current Visit: Yes (2) Acute exacerbation of chronic obstructive pulmonary disease (COPD) Status: Acute Assessment and plan: Pt currently on pulmicort BID and A/A with prednisone 40mg daily. very poor prognosis noted Current Visit: Yes (3) Pneumonia Problem details: Pseudomonas, treated Status: Acute Assessment and plan: s/p zosyn for psa, WBC improving, afebrile. Current Visit: Yes - Time Spent With Patient Total time spent is greater than 50% in coordination of care (as documented) at patient's floor/unit and/or counseling patient: less than 15 minutes Sepsis Assessment - Evaluation Sepsis screening result: No Definite Risk
[2016-11-21] MEDS: LORazepam 0.5 MG TABLET PO PRN (13:18)
--- NOTE | 2016-11-21 14:16 | Progress Note ---
<Ni Sebastian V - Last Filed: 11/21/16 14:11> Subjective: Ulises is seen today accompanied with attending, Dr. Smalls as well as multiple caseworkers. In depth and extensive discussion with patient's regarding severity of illness, recommendations and discharge plan. Patient's continues to state that her expectation is a "biblical miracle of healing". Discussed concern of deterioration and concern for safe ability to care for patient. Discussed activity with PT, Currently is taking 2-3 assistance to get patient up to edge of the bed. Patinet sleeping through meeting, Remains on Bi- pap. Objective Vital signs: Temperature 97.6 F 11/21/16 07:00 Pulse Rate 85 11/21/16 07:00 Respiratory Rate 24 11/21/16 11:13 Blood Pressure 161/81 H 11/21/16 07:00 Pulse Oximetry 100 11/21/16 11:13 Height/Weight/BMI: Height 1.73 m Weight 75.75 kg Body Mass Index 25.4 - Constitutional Present: no acute distress Results - Labs CBC & Chem 7: 11/21/16 05:31 11/21/16 05:31 Microbiology Results: Microbiology 11/18/16 16:18 Cath/Port/Line/Picc Blood Culture - Preliminary No Growth After 2 Days 11/18/16 16:24 Cath/Port/Line/Picc Blood Culture - Preliminary No Growth After 2 Days - ABG Interpretation ABG results: 11/08/16 17:45 ABG pH 7.450 ABG pCO2 50 H ABG pO2 75 L ABG HCO3 35 H ABG Total CO2 36.3 H ABG O2 Saturation 96.0 ABG Base Excess 9.3 H Assessment and Plan (1) Pneumonia Problem details: Pseudomonas, treated Current visit: Yes Status: Acute (2) Acute on chronic respiratory failure with hypoxia and hypercapnia Current visit: Yes Status: Acute Assessment and Plan: Assessment Sepsis syndrome due to pneumonia - Leukocytosis, Tachycardia, tachypnea. ( Present on presentation in ED) - resolved. 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 Multiple subacute rib and thoracic/lumbar vertebral compression fractures Postherpetic neuralgia Presumed osteoporosis Chronic steroid use Afib with RVR - converted spontaneously to NSR HTN Hypernatremia (POA) Hypokalemia (POA) Thrush Significant pulmonary debility Plan Plan discussed with , CM and attending. Would like to participate in all cares of patient along with therapy and nursing in preparation for discharge. At this time, 's plan is to take patient home where she will care for him independently. Extensive discussion regarding all possible options including penitentiary, skilled, hospice. Patient continues to decline with plan for biblical miracle Leukocytosis continues to trend down. Hemoglobin stable at 8.7. Kidney work with PT and OT for strengthening SCDs to bilateral lower external for DVT prophylaxis, Lovenox on hold due to thrombocytopenia Sepsis Assessment - Evaluation Sepsis screening result: No Definite Risk Hospital Course Summary Disclaimer: The visit summary below is not to be considered part of the above Progress Note. Hospital Course: Hospital Course: Assessment Sepsis syndrome due to pneumonia - Leukocytosis, Tachycardia, tachypnea. 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 Multiple subacute rib and thoracic/lumbar vertebral compression fractures Postherpetic neuralgia Presumed osteoporosis Chronic steroid use HTN Hypernatremia (POA) Hypokalemia (POA) Thrush Significant pulmonary debility 11/06/16-hospital admission Admit to inpatient status to the hospitalist team with Dr. Smalls attending. Given patient's significant lung disease and respiratory failure, it is expected his stay will be at least 2 overnights. IV azithromycin and IV Rocephin to cover for typical pathogens causing CAP. Methylprednisolone IV 125 mg every 6 hours, inhaled/nebulized budesonide, DuoNeb treatments and Acapella for respiratory symptoms. Continue home Roscoe dosage for his chronic pain related to recent rib fractures and postherpetic neuralgia. Will add Neurontin 300mg at night as well. SCDs and Lovenox for DVT prevention. Ongoing Telemetry to monitor tachycardia. Check ECHO due to elevated BNP - suspect significant pulmonary HTN due to his lung disease. Urinalysis, magnesium, and TSH for laboratory completeness. Consider RT and/or pulmonology consult. Discussed CODE STATUS with patient. He does not wish to receive CPR, however he is willing to be placed on a ventilator short-term should this be indicated given his respiratory condition. 11/07/16 Sepsis syndrome resolving. Continue Rocephin and azithromycin for pulmonary coverage (Day #2). Continue Solu-Medrol at 125mg IV q 6 hours. Neb treatments/acapella/Mucinex. Will consult Dr Bolton for pulmonary evaluation - not been able to see his sleep scientist for ~1 year to due his severe pulmonary debility. ? if other medications or respiratory support would be beneficial. ? need for more help with ventilation. Concern that patient at end stage of his respiratory disease. Decrease IVF to 50cc/hr as patient taking oral in better. Sodium normalized at 143. Potassium increased to 3.4 - will give additional oral KCl and monitor. Nystatin started yesterday for thrush. Norvasc started yesterday due to significant BP elevation. Lorazepam as needed for anxiety/air hunger due to chronic respiratory failure. 11/08/16 Check CXR today - increasing oxygen needs (now on 4L) and weight is trending up. Fluid balance is positive. May need to consider stopping IVF and/or diuresing - Na level has improved to 144. K 3.4 - will give extra KDur. Chest discomfort this am, assoc. with increased dyspnea - will check trop. Echo pending. Hgb has trended down from 12 to 9.7 - check iron studies, vitamin B12, folate, check stool for occult blood. Platelets have also been trending down - will hold Lovenox for now. Continue Rocephin and azithromycin for pulmonary coverage (Day #3). Continue Solu-Medrol at 125mg IV q 6 hours. Neb treatments/acapella/Mucinex. Dr. Bolton has been consulted. High risk med: IV Ativan. 11/09/16 Antibiotics were changed to cefepime by pulmonology due to Pseudomonas growth. Sensitivities still pending. Patient requiring BiPAP constantly. Refusing to eat/drink due to respiratory distress. IV fluids were previously discontinued. Monitor for evidence of hydration. Will give another dose of Lasix 40 mg x 1 now given peripheral edema. Monitor I and O. Blood pressure is uncontrolled. Will increase amlodipine to 10 mg. May need to add another agent. Consider Romulo/ARB. Avoid beta alexi given his lung disease. Pulmonology will continue to follow. 11/10/16 Patient is critically ill with unstable cardiac rhythm and rate. 20 mg IV diltiazem given with minimal slowing of the heart rate at which point diltiazem drip ordered and patient was transferred to the CCU for further management. Amlodipine discontinued anticipating long-term conversion to diltiazem; magnesium level obtained in the event digitoxin will need to be added as a second agent for rate control. Potassium being replaced. Serial troponins being obtained, d-dimer obtained-not highly suggestive of triggering PE. Lovenox initiated at 40 mg daily in conjunction with SCDs. Echocardiogram to be obtained. Cardiology consultation may be needed. Findings discussed with Dr. Bolton. No change in respiratory status; day 2 cefepime for Pseudomonas pneumonia. With hemodynamic instability will not attempt to taper steroids today. Continue BiPAP/supplemental O2. Blood pressure elevated overnight, transient drop with onset of A. fib. Anticipate adding losartan in conjunction with calcium alexi. 11/11/16 Converted back to sinus rhythm following initiation of Cardizem and slowing of heart rate yesterday. Heart rate in the 80s and 90s overnight and today. Blood pressure modestly elevated today following discontinuation of amlodipine; losartan initiated today at 50 mg daily, supplemental 50 mg dose given and daily dose increased to 100 mg daily effective tomorrow morning. Troponins obtained yesterday unremarkable. Stable to transfer back to the floor and resume prior care directed at stabilization of chronic respiratory disease. No overall change in respiratory status; Pseudomonas pneumonia treated with cefepime 11/09-11/10; switched to Zosyn 11/10 when found to be cefepime resistant. Continue Solu-Medrol at current dose today, if stable overnight will convert to prednisone tomorrow and begin slow titration Continue BiPAP/supplemental O2. Macrocytic anemia present, B-12 supplementation initiated 11/09 Hypernatremia improving, potassium improved today. Continue to monitor. PT/OT consults; began getting patient up to chair. 11/12/16 Remains in sinus rhythm by review of telemetry strips, single or-5P CT overnight. Blood pressure modestly elevated today with last 2 readings 155/96 and 139/86. Continue losartan 100 mg daily and diltiazem CD 240 mg daily-heart rate will permit increasing calcium alexi dose if needed. Slow improvement in respiratory status; Pseudomonas pneumonia treated with cefepime 11/09-11/10; switched to Zosyn 11/10 when found to be cefepime resistant. Anticipate 7 days Zosyn (currently day 3) Convert from Solu-Medrol to prednisone 60 mg daily. Continue BiPAP/supplemental O2. Macrocytic anemia present, B-12 supplementation initiated 11/09 Persistent hypernatremia, patient reports improved oral intake since tolerating increased time off BiPAP. Platelet count dropping-reassess tomorrow before discontinuing Lovenox. HIT Ab with a.m. labs. 11/13/16 I reviewed diagnoses with Forrest, his Shruti, and his mother: End-stage COPD with life threatening illness and complications including sepsis, pneumonia , A-fib with RVR, and immunocompromised status. I let them know that while his pneumonia looks better (but not resolved), his underlying status is still very serious and medically we have little more to offer him; nor do we expect his condition to improve much. This topic brought a response of great excitement from his , who verbally and emphatically exclaimed "Lola Brandon, the end is near!" with a smile on her face. When I asked her to explain her reaction, she replied that she believes that he will have a miracle, and will surprise all of us and Ulises will walk out of the hospital completely healed. Ulises and his mother also shared this enthusiasm, and both believed that he will completely recover from both his pneumonia and his end-stage lung disease. I again offered the concept of palliative care - focusing on symptom control, particularly for breathing. Both Ulises and Shruti were very quiet, and did not offer much response. I did not feel they were at a point emotionally to discuss hospice. I reviewed his limitations - unable to ambulate, feed himself, sit upright, perform self-cares, undergo bed bath without needing BiPAP - according to the Palliative Performance Scale he is currently at best 30%; at home he may have been up to 40%, both of which are associated with a very limited life expectancy. I again reviewed what his wishes are if he decompensates - he wants full, aggressive care. He currently rates his quality of life as excellent and wants to keep on living. I let them know that odds of survival if he codes are very slim, and the chance for recovery is even less than that. We reviewed discharge planning. They are opposed to skilled care and he intends on going home. His denies any caregiver stress/strain. Her vinnie is a major source of strength. She is hopeful he won't need BiPAP when he goes home. We reviewed what palliative care might look like at home - could possibly send him home with Ativan at a reduced frequency; morphine will require additional consideration given risk for respiratory suppression. His reports that she temporarily increases the flow rate at home if he becomes more short of breath. Oral intake is improving - Na still mildly elevated. Shruti reports that he has been drinking fluids much better today. BP has still been elevated - diastolics frequently range 90-100+. HR has not been bradycardic. Will increase diltiazem to 360 mg daily. Continue Zosyn (day 4 of 7) for pseudomonas pneumonia; Prednisone 60 mg daily; BiPAP; Nebs; and O2. Case management has filled out financial applications for home BiPAP. 11/14/16 Blood pressures remain high. Diltiazem increase to 360 mg was started today. Continue to monitor. Consider Lasix IV given the pitting edema (this is something he didn't have prior to admission per ). With elevated BNP, mild diuresis may help his breathing. Continue morphine and Ativan PRN air hunger/anxiety Day 5 () Zosyn for Pseudomonas pneumonia. Slow clinical improvement although has advanced disease 11/15/16 Advanced care directives discussed: Case management will bring DPOA form for Chalo to sign. We will have this notarized here. Code status clarified : No CPR, no intubation or mechanical ventilation. Living will: began discussion , and he was able to state that he doesn't want anything to keep him artificially alive (i.e. feeding tube). He was able to state that if he is unable to wake up while on BiPAP, then it should be removed. This will require additional discussion. I've asked Case Management to provide a Caring Conversations brochure to open up further conversations. Medically, ongoing concerns with little to no improvements in respiratory status. Today is day 6 of 7 of Zosyn for pseudomonas pneumonia. He required BiPAP use for most of the day yesterday, although he was sleeping a lot. Leukocytosis is increasing (could be steroid effect, also could be another or worsening infection). Platelets have been low but improved today (also could be stress reaction vs. sepsis response) - HIT antibodies were negative. He is still hypernatremic though BUN is decreasing, though he has anasarca. Hgb also has dropped 3 gm since admission, so will check stool again for occult blood. With steroid use he is at higher risk for GI bleed. Nutritionally, he took in little yesterday. His last albumin was 3.1 and prealbumin was 30 on admit. Will repeat CMP in am to f/u on albumin level. Start eye drops to keep them moisturized - he has some difficulty closing his left eye. Overall we had a realistic conversation this am about expectations and goals of care. They are open to palliative treatment, knowing that we have little to offer medically and they both agreed that comfort/symptom control is important. Further palliative conversations would be beneficial, and they are agreeable to discussing this further with Dr. Montero, who I've contacted and discussed the case with. 11/17/16 Mr. Grider is stable. Antibiotics were completed yesterday. Electrolytes to be reassessed tomorrow. Blood pressure is low-normal since initiation of clonidine twice daily, dose reduced to once daily. Continue BiPAP at night and as needed during the day. Palliative care not readdressed at this time. Discussed with nursing. Discontinue telemetry. 11/18/16 Patient does not describe any new symptoms today however has been desaturating and white count is climbing. Chest x-ray without evidence of infiltrate. Completed 8-9 days of Zosyn ( discontinued today, I thought it been discontinued late on 11/16 however was still on medication list today). No urinary symptoms, PICC line left upper extremity-small amount of blood under dressing. Patient is afebrile. Given combined leukocytosis and hypoxia will obtain blood cultures today with one drawn through the PICC line. Patient and his report this still processing information provided by Dr. Montero and have not yet made a decision about future plans. Blood pressure stable today, may require increasing clonidine to twice a day but with other instability demonstrated today will not modify at this time. Potassium borderline high, hold replacement. HIT Ab reported out today-negative, platelet count has rebounded somewhat. Resume Lovenox 40 mg daily-patient using SCDs minimally so he can exercise his legs. 11/19/16 Leukocytosis decreasing. BC pending. Will continue with Zosyn, possible d/c Zosyn tomorrow if WBC decreasing and BC negative. Hold Lovenox as platelets showing decrease to 124. Encourage activities. Home ventilatory has arrived. Possible discharge in near future. Overall prognosis poor-end stage lung disease. 11/20/16 Leukocytosis decreasing - 14.3. BC without growth to date. Stop Zosyn - monitor WBC and clinical status without. Continue Prednisone at 40mg orally. Will keep Lovenox on hold - platelets 109 this am. Encourage activities. 11/21/16 Plan Plan discussed with , CM and attending. Would like to participate in all cares of patient along with therapy and nursing in preparation for discharge. At this time, 's plan is to take patient home where she will care for him independently. Extensive discussion regarding all possible options including penitentiary, skilled, hospice. Patient continues to decline with plan for biblical miracle Leukocytosis continues to trend down. Hemoglobin stable at 8.7. Kidney work with PT and OT for strengthening SCDs to bilateral lower external for DVT prophylaxis, Lovenox on hold due to thrombocytopenia <Samir Smalls - Last Filed: 11/21/16 18:41> Objective Vital signs: Temperature 97.3 F 11/21/16 16:00 Pulse Rate 82 11/21/16 16:00 Respiratory Rate 17 11/21/16 16:00 Blood Pressure 138/80 11/21/16 16:00 Pulse Oximetry 98 11/21/16 16:00 Height/Weight/BMI: Height 1.73 m Weight 75.75 kg Body Mass Index 25.4 Results - Labs CBC & Chem 7: 11/21/16 05:31 11/21/16 05:31 Microbiology Results: Microbiology 11/18/16 16:18 Cath/Port/Line/Picc Blood Culture - Preliminary No Growth After 3 Days 11/18/16 16:24 Cath/Port/Line/Picc Blood Culture - Preliminary No Growth After 3 Days - ABG Interpretation ABG results: 11/08/16 17:45 ABG pH 7.450 ABG pCO2 50 H ABG pO2 75 L ABG HCO3 35 H ABG Total CO2 36.3 H ABG O2 Saturation 96.0 ABG Base Excess 9.3 H Assessment and Plan (1) Pneumonia Problem details: Pseudomonas, treated Current visit: Yes Status: Acute (2) Acute on chronic respiratory failure with hypoxia and hypercapnia Current visit: Yes Status: Acute DVT Prophylaxis: SCD's Resuscitation Status: Limited Code Assessment and Plan: Assessment Sepsis syndrome due to pneumonia - Leukocytosis, Tachycardia, tachypnea. ( Present on presentation in ED) - resolved. 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 Multiple subacute rib and thoracic/lumbar vertebral compression fractures Postherpetic neuralgia Presumed osteoporosis Chronic steroid use Afib with RVR - converted spontaneously to NSR HTN Hypernatremia (POA) Hypokalemia (POA) Thrush Significant pulmonary debility Have independently interviewed and examined patient. Chart reviewed. Case discussed with CM, pt's , and my CHART READER. Seen earlier with group meeting and again this evening. Care plan developed with my supervision; agree with above. Doing okay this evening. Sore and tired from therapy activities. Is trying to do more arm and leg activities. Breathing about the same. Currently on O2 per NC -like NC as is able to talk better and eat. Appetite stable. No mouth pain. Lungs: decrease, little air movement. CV: distant, regular AB: soft nt/nd +BS EXT: +2 edema MSE: awake alert Plan: Continue to work on transitioning patient to home ( and patient's goals). Care needs are very high. CM offer other supportive measures, but declined currently. still expecting a 'miracle.' Prognosis poor. - Time spent with patient 25 - 35 minutes Hospital Course Summary Disclaimer: The visit summary below is not to be considered part of the above Progress Note.
[2016-11-21] MEDS: GABAPENTIN 300 MG CAPSULE PO SCH (21:41)
[2016-11-22] MEDS: ALBUTEROL/IPRATROPIUM 2.5mg-0.5mg/3ml NEB AEROSOL SCH ×4 (07:48→20:05)
[2016-11-22] MEDS: BUDESONIDE INH.SOLN 0.5mg/2ml NEB AEROSOL SCH ×2 (07:48→20:05)
[2016-11-22] MEDS: SALINE FLUSH 10ml SYRINGE IVF PRN ×2 (08:35→21:41)
[2016-11-22] MEDS: GUAIFENESIN/D-METHORPHAN 600mg/30mg TABLET PO SCH ×2 (09:16→21:40)
[2016-11-22] MEDS: LOSARTAN 100 MG TABLET PO SCH (09:16)
[2016-11-22] MEDS: PredniSONE 20 MG TABLET PO SCH (09:16)
[2016-11-22] MEDS: DiltiaZEM CD 360 MG CAPSULE PO SCH (09:16)
[2016-11-22] MEDS: NYSTATIN 500,000 units/5 ml ORAL LIQUID PO SCH ×4 (09:17→21:40)
[2016-11-22] MEDS: FAMOTIDINE 20 MG TABLET PO SCH ×2 (09:17→21:41)
[2016-11-22] MEDS: LORazepam 0.5 MG TABLET PO PRN ×2 (12:05→19:23)
--- NOTE | 2016-11-22 14:17 | Progress Note ---
<Ni Sebastian V - Last Filed: 11/22/16 14:13> Subjective: Forrest is seen this morning , working with PT and OT and assisting patient up to side of bed. He takes 2 person to 3 person assistance to sit at edge of the bed, however, does not tolerate this for more than 1 minute as he feels short of breath. Noted during this event. Heart rate increased to the 180s and sustained for approximately 10 minutes until he was lying supine and resting. Again in-depth discussion of concern for safety if patient and safety of as she is going to be his primary caregiver at home. Objective Vital signs: Temperature 98.8 F 11/22/16 08:00 Pulse Rate 90 11/22/16 08:00 Respiratory Rate 19 11/22/16 10:51 Blood Pressure 151/79 H 11/22/16 08:00 Pulse Oximetry 95 11/22/16 10:51 Height/Weight/BMI: Height 1.73 m Weight 75.6 kg Body Mass Index 25.4 - Constitutional Present: moderate distress - Routine Respiratory Exam Present: wheezes, crackles - Routine Cardiovascular Exam Present: S1, S2 - Routine Abdominal Exam Present: soft - Routine Extremities Exam Present: edema (trace bilateral lower extremity) - Routine Skin Exam Present: dry, warm - Routine Neurological Exam Present: alert, CN II-XII intact - Routine Psychiatric Exam Present: normal affect Results - Labs CBC & Chem 7: 11/21/16 05:31 11/21/16 05:31 Microbiology Results: Microbiology 11/18/16 16:24 Peripheral/Iv Start Gram Stain - Final Not performed 11/18/16 16:24 Peripheral/Iv Start Blood Culture - Preliminary No Growth After 3 Days 11/18/16 16:18 Cath/Port/Line/Picc Blood Culture - Preliminary No Growth After 3 Days - ABG Interpretation ABG results: 11/08/16 17:45 ABG pH 7.450 ABG pCO2 50 H ABG pO2 75 L ABG HCO3 35 H ABG Total CO2 36.3 H ABG O2 Saturation 96.0 ABG Base Excess 9.3 H Assessment and Plan (1) Pneumonia Problem details: Pseudomonas, treated Current visit: Yes Status: Acute (2) Acute on chronic respiratory failure with hypoxia and hypercapnia Current visit: Yes Status: Acute Assessment and Plan: Assessment Sepsis syndrome due to pneumonia - Leukocytosis, Tachycardia, tachypnea. ( Present on presentation in ED) - resolved. 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 Multiple subacute rib and thoracic/lumbar vertebral compression fractures Postherpetic neuralgia Presumed osteoporosis Chronic steroid use Afib with RVR - converted spontaneously to NSR HTN Hypernatremia (POA) Hypokalemia (POA) Thrush Significant pulmonary debility Plan Following attempt to work with PT, CM discussed further with regarding plan of discharge and concern for safety. does agree to discuss hospice. CM to call [facility] hospice Continue with Bipap and supportive care. Planning for discharge tomorrow Prognosis poor Sepsis Assessment - Evaluation Sepsis screening result: No Definite Risk Hospital Course Summary Disclaimer: The visit summary below is not to be considered part of the above Progress Note. Hospital Course: Hospital Course: Assessment Sepsis syndrome due to pneumonia - Leukocytosis, Tachycardia, tachypnea. 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 Multiple subacute rib and thoracic/lumbar vertebral compression fractures Postherpetic neuralgia Presumed osteoporosis Chronic steroid use HTN Hypernatremia (POA) Hypokalemia (POA) Thrush Significant pulmonary debility 11/06/16-hospital admission Admit to inpatient status to the hospitalist team with Dr. Smalls attending. Given patient's significant lung disease and respiratory failure, it is expected his stay will be at least 2 overnights. IV azithromycin and IV Rocephin to cover for typical pathogens causing CAP. Methylprednisolone IV 125 mg every 6 hours, inhaled/nebulized budesonide, DuoNeb treatments and Acapella for respiratory symptoms. Continue home [place] dosage for his chronic pain related to recent rib fractures and postherpetic neuralgia. Will add Neurontin 300mg at night as well. SCDs and Lovenox for DVT prevention. Ongoing Telemetry to monitor tachycardia. Check ECHO due to elevated BNP - suspect significant pulmonary HTN due to his lung disease. Urinalysis, magnesium, and TSH for laboratory completeness. Consider RT and/or pulmonology consult. Discussed CODE STATUS with patient. He does not wish to receive CPR, however he is willing to be placed on a ventilator short-term should this be indicated given his respiratory condition. 11/07/16 Sepsis syndrome resolving. Continue Rocephin and azithromycin for pulmonary coverage (Day #2). Continue Solu-Medrol at 125mg IV q 6 hours. Neb treatments/acapella/Mucinex. Will consult Dr Bolton for pulmonary evaluation - not been able to see his private mortgage banker safe for ~1 year to due his severe pulmonary debility. ? if other medications or respiratory support would be beneficial. ? need for more help with ventilation. Concern that patient at end stage of his respiratory disease. Decrease IVF to 50cc/hr as patient taking oral in better. Sodium normalized at 143. Potassium increased to 3.4 - will give additional oral KCl and monitor. Nystatin started yesterday for thrush. Norvasc started yesterday due to significant BP elevation. Lorazepam as needed for anxiety/air hunger due to chronic respiratory failure. 11/08/16 Check CXR today - increasing oxygen needs (now on 4L) and weight is trending up. Fluid balance is positive. May need to consider stopping IVF and/or diuresing - Na level has improved to 144. K 3.4 - will give extra KDur. Chest discomfort this am, assoc. with increased dyspnea - will check trop. Echo pending. Hgb has trended down from 12 to 9.7 - check iron studies, vitamin B12, folate, check stool for occult blood. Platelets have also been trending down - will hold Lovenox for now. Continue Rocephin and azithromycin for pulmonary coverage (Day #3). Continue Solu-Medrol at 125mg IV q 6 hours. Neb treatments/acapella/Mucinex. Dr. Bolton has been consulted. High risk med: IV Ativan. 11/09/16 Antibiotics were changed to cefepime by pulmonology due to Pseudomonas growth. Sensitivities still pending. Patient requiring BiPAP constantly. Refusing to eat/drink due to respiratory distress. IV fluids were previously discontinued. Monitor for evidence of hydration. Will give another dose of Lasix 40 mg x 1 now given peripheral edema. Monitor I and O. Blood pressure is uncontrolled. Will increase amlodipine to 10 mg. May need to add another agent. Consider Romulo/ARB. Avoid beta alexi given his lung disease. Pulmonology will continue to follow. 11/10/16 Patient is critically ill with unstable cardiac rhythm and rate. 20 mg IV diltiazem given with minimal slowing of the heart rate at which point diltiazem drip ordered and patient was transferred to the CCU for further management. Amlodipine discontinued anticipating long-term conversion to diltiazem; magnesium level obtained in the event digitoxin will need to be added as a second agent for rate control. Potassium being replaced. Serial troponins being obtained, d-dimer obtained-not highly suggestive of triggering PE. Lovenox initiated at 40 mg daily in conjunction with SCDs. Echocardiogram to be obtained. Cardiology consultation may be needed. Findings discussed with Dr. Bolton. No change in respiratory status; day 2 cefepime for Pseudomonas pneumonia. With hemodynamic instability will not attempt to taper steroids today. Continue BiPAP/supplemental O2. Blood pressure elevated overnight, transient drop with onset of A. fib. Anticipate adding losartan in conjunction with calcium alexi. 11/11/16 Converted back to sinus rhythm following initiation of Cardizem and slowing of heart rate yesterday. Heart rate in the 80s and 90s overnight and today. Blood pressure modestly elevated today following discontinuation of amlodipine; losartan initiated today at 50 mg daily, supplemental 50 mg dose given and daily dose increased to 100 mg daily effective tomorrow morning. Troponins obtained yesterday unremarkable. Stable to transfer back to the floor and resume prior care directed at stabilization of chronic respiratory disease. No overall change in respiratory status; Pseudomonas pneumonia treated with cefepime 11/09-11/10; switched to Zosyn 11/10 when found to be cefepime resistant. Continue Solu-Medrol at current dose today, if stable overnight will convert to prednisone tomorrow and begin slow titration Continue BiPAP/supplemental O2. Macrocytic anemia present, B-12 supplementation initiated 11/09 Hypernatremia improving, potassium improved today. Continue to monitor. PT/OT consults; began getting patient up to chair. 11/12/16 Remains in sinus rhythm by review of telemetry strips, single or-5P CT overnight. Blood pressure modestly elevated today with last 2 readings 155/96 and 139/86. Continue losartan 100 mg daily and diltiazem CD 240 mg daily-heart rate will permit increasing calcium alexi dose if needed. Slow improvement in respiratory status; Pseudomonas pneumonia treated with cefepime 11/09-11/10; switched to Zosyn 11/10 when found to be cefepime resistant. Anticipate 7 days Zosyn (currently day 3) Convert from Solu-Medrol to prednisone 60 mg daily. Continue BiPAP/supplemental O2. Macrocytic anemia present, B-12 supplementation initiated 11/09 Persistent hypernatremia, patient reports improved oral intake since tolerating increased time off BiPAP. Platelet count dropping-reassess tomorrow before discontinuing Lovenox. HIT Ab with a.m. labs. 11/13/16 I reviewed diagnoses with Forrest, his Shruti, and his mother: End-stage COPD with life threatening illness and complications including sepsis, pneumonia , A-fib with RVR, and immunocompromised status. I let them know that while his pneumonia looks better (but not resolved), his underlying status is still very serious and medically we have little more to offer him; nor do we expect his condition to improve much. This topic brought a response of great excitement from his , who verbally and emphatically exclaimed "Lola Brandon, the end is near!" with a smile on her face. When I asked her to explain her reaction, she replied that she believes that he will have a miracle, and will surprise all of us and Ulises will walk out of the hospital completely healed. Ulises and his mother also shared this enthusiasm, and both believed that he will completely recover from both his pneumonia and his end-stage lung disease. I again offered the concept of palliative care - focusing on symptom control, particularly for breathing. Both Ulises and Shruti were very quiet, and did not offer much response. I did not feel they were at a point emotionally to discuss hospice. I reviewed his limitations - unable to ambulate, feed himself, sit upright, perform self-cares, undergo bed bath without needing BiPAP - according to the Palliative Performance Scale he is currently at best 30%; at home he may have been up to 40%, both of which are associated with a very limited life expectancy. I again reviewed what his wishes are if he decompensates - he wants full, aggressive care. He currently rates his quality of life as excellent and wants to keep on living. I let them know that odds of survival if he codes are very slim, and the chance for recovery is even less than that. We reviewed discharge planning. They are opposed to skilled care and he intends on going home. His denies any caregiver stress/strain. Her vinnie is a major source of strength. She is hopeful he won't need BiPAP when he goes home. We reviewed what palliative care might look like at home - could possibly send him home with Ativan at a reduced frequency; morphine will require additional consideration given risk for respiratory suppression. His reports that she temporarily increases the flow rate at home if he becomes more short of breath. Oral intake is improving - Na still mildly elevated. Shruti reports that he has been drinking fluids much better today. BP has still been elevated - diastolics frequently range 90-100+. HR has not been bradycardic. Will increase diltiazem to 360 mg daily. Continue Zosyn (day 4 of 7) for pseudomonas pneumonia; Prednisone 60 mg daily; BiPAP; Nebs; and O2. Case management has filled out financial applications for home BiPAP. 11/14/16 Blood pressures remain high. Diltiazem increase to 360 mg was started today. Continue to monitor. Consider Lasix IV given the pitting edema (this is something he didn't have prior to admission per ). With elevated BNP, mild diuresis may help his breathing. Continue morphine and Ativan PRN air hunger/anxiety Day 5 ( 7) Zosyn for Pseudomonas pneumonia. Slow clinical improvement although has advanced disease 11/15/16 Advanced care directives discussed: Case management will bring DPOA form for Chalo to sign. We will have this notarized here. Code status clarified : No CPR, no intubation or mechanical ventilation. Living will: began discussion , and he was able to state that he doesn't want anything to keep him artificially alive (i.e. feeding tube). He was able to state that if he is unable to wake up while on BiPAP, then it should be removed. This will require additional discussion. I've asked Case Management to provide a Caring [employer]vers[employer] brochure to open up further conversations. Medically, ongoing concerns with little to no improvements in respiratory status. Today is day 6 of 7 of Zosyn for pseudomonas pneumonia. He required BiPAP use for most of the day yesterday, although he was sleeping a lot. Leukocytosis is increasing (could be steroid effect, also could be another or worsening infection). Platelets have been low but improved today (also could be stress reaction vs. sepsis response) - HIT antibodies were negative. He is still hypernatremic though BUN is decreasing, though he has anasarca. Hgb also has dropped 3 gm since admission, so will check stool again for occult blood. With steroid use he is at higher risk for GI bleed. Nutritionally, he took in little yesterday. His last albumin was 3.1 and prealbumin was 30 on admit. Will repeat CMP in am to f/u on albumin level. Start eye drops to keep them moisturized - he has some difficulty closing his left eye. Overall we had a realistic conversation this am about expectations and goals of care. They are open to palliative treatment, knowing that we have little to offer medically and they both agreed that comfort/symptom control is important. Further palliative conversations would be beneficial, and they are agreeable to discussing this further with Dr. Montero, who I've contacted and discussed the case with. 11/17/16 Mr. Grider is stable. Antibiotics were completed yesterday. Electrolytes to be reassessed tomorrow. Blood pressure is low-normal since initiation of clonidine twice daily, dose reduced to once daily. Continue BiPAP at night and as needed during the day. Palliative care not readdressed at this time. Discussed with nursing. Discontinue telemetry. 11/18/16 Patient does not describe any new symptoms today however has been desaturating and white count is climbing. Chest x-ray without evidence of infiltrate. Completed 8-9 days of Zosyn ( discontinued today, I thought it been discontinued late on 11/16 however was still on medication list today). No urinary symptoms, PICC line left upper extremity-small amount of blood under dressing. Patient is afebrile. Given combined leukocytosis and hypoxia will obtain blood cultures today with one drawn through the PICC line. Patient and his report this still processing information provided by Dr. Montero and have not yet made a decision about future plans. Blood pressure stable today, may require increasing clonidine to twice a day but with other instability demonstrated today will not modify at this time. Potassium borderline high, hold replacement. HIT Ab reported out today-negative, platelet count has rebounded somewhat. Resume Lovenox 40 mg daily-patient using SCDs minimally so he can exercise his legs. 11/19/16 Leukocytosis decreasing. BC pending. Will continue with Zosyn, possible d/c Zosyn tomorrow if WBC decreasing and BC negative. Hold Lovenox as platelets showing decrease to 124. Encourage activities. Home ventilatory has arrived. Possible discharge in near future. Overall prognosis poor-end stage lung disease. 11/20/16 Leukocytosis decreasing - 14.3. BC without growth to date. Stop Zosyn - monitor WBC and clinical status without. Continue Prednisone at 40mg orally. Will keep Lovenox on hold - platelets 109 this am. Encourage activities. 11/21/16 Plan Plan discussed with , CM and attending. Would like to participate in all cares of patient along with therapy and nursing in preparation for discharge. At this time, 's plan is to take patient home where she will care for him independently. Extensive discussion regarding all possible options including correction, skilled, hospice. Patient continues to decline with plan for [facility] Leukocytosis continues to trend down. Hemoglobin stable at 8.7. Kidney work with PT and OT for strengthening SCDs to bilateral lower external for DVT prophylaxis, Lovenox on hold due to thrombocytopenia 11/22/16 Plan Following attempt to work with PT, CM discussed further with regarding plan of discharge and concern for safety. does agree to discuss hospice. CM to call [facility] hospice Continue with Bipap and supportive care. Planning for discharge tomorrow Prognosis poo <Samir Smalls - Last Filed: 11/22/16 21:12> Objective Vital signs: Temperature 99.4 F 11/22/16 15:55 Pulse Rate 88 11/22/16 15:55 Respiratory Rate 22 11/22/16 20:14 Blood Pressure 146/81 H 11/22/16 15:55 Pulse Oximetry 98 11/22/16 20:14 Height/Weight/BMI: Height 1.73 m Weight 75.6 kg Body Mass Index 25.4 Results - Labs CBC & Chem 7: 11/21/16 05:31 11/21/16 05:31 Microbiology Results: Microbiology 11/18/16 16:24 Peripheral/Iv Start Blood Culture - Preliminary No Growth After 4 Days 11/18/16 16:18 Cath/Port/Line/Picc Blood Culture - Preliminary No Growth After 4 Days - ABG Interpretation ABG results: 11/08/16 17:45 ABG pH 7.450 ABG pCO2 50 H ABG pO2 75 L ABG HCO3 35 H ABG Total CO2 36.3 H ABG O2 Saturation 96.0 ABG Base Excess 9.3 H Assessment and Plan (1) Pneumonia Problem details: Pseudomonas, treated Current visit: Yes Status: Acute (2) Acute on chronic respiratory failure with hypoxia and hypercapnia Current visit: Yes Status: Acute DVT Prophylaxis: SCD's Assessment and Plan: Assessment Sepsis syndrome due to pneumonia - Leukocytosis, Tachycardia, tachypnea. ( Present on presentation in ED) - resolved. 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 Multiple subacute rib and thoracic/lumbar vertebral compression fractures Postherpetic neuralgia Presumed osteoporosis Chronic steroid use Afib with RVR - converted spontaneously to NSR HTN Hypernatremia (POA) Hypokalemia (POA) Thrush Significant pulmonary debility Have independently interviewed and examined pt. Chart reviewed. Case discussed with CM and my [employer]. Care plan developed with my supervision; agree with above. Resting in bed this evening. Lungs: decreased, little air movement. Breathing comfortable with BiPAP CV: regular AB: soft nt/nd Plan: WBC with decrease-off Zosyn. Platelets not decreasing-Lovenox stopped. Family met with Hospice this evening. Transition to hospice care would be beneficial as they could help provide comfort and supportive care he needs. End stage lung disease - prognosis poor. Hospital Course Summary Disclaimer: The visit summary below is not to be considered part of the above Progress Note.
[2016-11-22] MEDS: GABAPENTIN 300 MG CAPSULE PO SCH (21:41)
[2016-11-23] MEDS: ALBUTEROL/IPRATROPIUM 2.5mg-0.5mg/3ml NEB AEROSOL SCH ×2 (08:20→11:53)
[2016-11-23] MEDS: BUDESONIDE INH.SOLN 0.5mg/2ml NEB AEROSOL SCH (08:20)
[2016-11-23] MEDS: DiltiaZEM CD 360 MG CAPSULE PO SCH (08:47)
[2016-11-23] MEDS: LOSARTAN 100 MG TABLET PO SCH (08:47)
[2016-11-23] MEDS: PredniSONE 20 MG TABLET PO SCH (08:47)
[2016-11-23] MEDS: NYSTATIN 500,000 units/5 ml ORAL LIQUID PO SCH ×2 (08:48→13:07)
[2016-11-23] MEDS: GUAIFENESIN/D-METHORPHAN 600mg/30mg TABLET PO SCH (08:48)
[2016-11-23] MEDS: FAMOTIDINE 20 MG TABLET PO SCH (08:48)
[2016-11-23 09:39] VITALS: BP 183/95; PULSE 87; TEMP 98.8
--- NOTE | 2016-11-23 11:22 | Discharge Summary ---
<MortezaMaria Isabel Edmund - Last Filed: 11/23/16 11:27> Discharge Information Date of admission: 11/06/16 09:46 Anticipated date of discharge: 11/23/16 Attending Physician: Samir Smalls MD Primary care physician: Donavan Rangel MD Consults: Consulting Provider: Keenan Bolton Consulting Provider: Rex Montero - Discharge Diagnosis (1) Pneumonia Status: Resolved (2) Acute on chronic respiratory failure with hypoxia and hypercapnia Status: Acute Discharge Diagnosis: Home with Hospice - Procedures Procedures: PICC line left upper ext. - Laboratory Labs: 11/21/16 05:31 11/21/16 05:31 - Microbiology Microbiology 11/18/16 16:24 Peripheral/Iv Start Blood Culture - Preliminary No Growth After 4 Days 11/18/16 16:18 Cath/Port/Line/Picc Blood Culture - Preliminary No Growth After 4 Days - Radiology Radiology: CT angio pulm emb/aorta chest CT angiogram of the chest for PE: No pulmonary embolus. Right lower lobe consolidation with small bilateral pleural effusions could represent pneumonia, aspiration or potentially a neoplastic process. Close imaging follow-up is recommended. CT angiogram of the chest for aorta: No evidence of aortic dissection, aneurysm or acute aortic syndrome. CT angiogram of the abdomen and pelvis with and without contrast: No evidence of acute aortic syndrome or acute disease process. Numerous thoracic and lumbar compression fractures involving T3-S1. Given the diffuse skeletal abnormalities and multiple subacute rib fractures this raises concern for an infiltrative marrow replacing metastatic process or multiple myeloma. Severe osteoporosis could also cause this. US echo doppler complete 1. Technically difficult study due to challenging acoustic windows plus the presence of dysthymia and tachycardia. 2. LV enlargement with wall motion abnormalities suggestive of prior large posteroinferior wall [place]. 3. Depressed LV systolic function, appears to be in the moderate range. 4. No significant valvular dysfunction. 5. I don't see any significant pericardial effusion, intracardiac masses, thrombi, vegetations or shunts. 6. Normal central venous pressure. 7. Mild pulmonary hypertension. Estimated systolic PA pressure 42 mmHg. XR chest 1V 11/08/16: Impression: Moderate pulmonary edema with worsening right-sided pneumonia. 11/11/16: Improving pneumonia 11/15/16: Continued improvement in the left-sided pneumonia with evidence of mild pulmonary vascular congestion and slight increase in right effusion. 9/10/17: Stable small to moderate-sized right pleural effusion with subjacent atelectasis or infiltrates. Mild left basilar atelectasis. History of Present Illness HPI: Patient is a 60-year-old white male patient of Dr. Rangel. He was brought into the ED by EMS due to significant shortness of breath and weakness. Patient has chronic lung disease and is on 3 L of oxygen chronically. Patient states this morning when trying to go to the bathroom, he was so short of air, he " just couldn't breathe." He is so weak he can barely ambulate from his bed to the chair. He takes Dulera or Symbicort routinely and 30 mg of prednisone daily for his "emphysema." His bicycle repairman is Dr. Ibrahima Menjivar. He hasn't seen him for over a year. He has been homebound for the last 9 months due to breathing limitation. Dr. Rangel made a house call last week to visit him, but prior to that, had not seen him for quite some time. He has been on disability for the past year due to his lung condition. In the emergency room he had labs/sepsis work-up and CTA chest. See results below. He received albuterol nebulizer treatments 3, azithromycin 500 mg IV, Rocephin 1 g IV, Lovenox 70 mg subcutaneous, Lasix 40 mg IV, magnesium sulfate 1 g IV, and methylprednisolone 125 mg IV. Patient was interviewed and examined in the emergency room, with his present. We discussed his CODE STATUS. He does not want CPR performed, but given his current respiratory condition, would be willing to have a ventilator short term if necessary. He would also like to use the local bicycle repairman if needed. We also discussed his findings on CT. He was found to have multiple rib fractures and compression fractures. He states a week ago he had severe rib pain. He states he was straining to have a bowel movement and he felt something "pop" in his ribs. He had severe low back pain approximately 5-6 months ago when he was trying to mixing picker tender something heavy. He denies any history of significant trauma such as a fall or an MVA. He takes [place] up to 4 times a day for postherpetic neuralgia and back and rib pain. Objective Vital signs: Temperature 98.8 F 11/23/16 08:41 Pulse Rate 87 09/15/17 08:41 Respiratory Rate 22 11/23/16 08:41 Blood Pressure 183/95 H 11/23/16 08:41 Pulse Oximetry 98 11/23/16 08:41 Rhythm: Normal Sinus Rhythm Height/Weight/BMI: Height 1.73 m Weight 74.7 kg Body Mass Index 25.4 - Constitutional Present: no acute distress - Routine HEENT Exam Head: Present: cushingoid faces - Routine Respiratory Exam Present: decreased breath sounds - Routine Cardiovascular Exam Present: RRR, S1, S2 - Routine Abdominal Exam Present: soft, normoactive bowel sounds, non distended, non tender - Routine Extremities Exam Present: edema - Routine Musculoskeletal Exam Musculoskeletal: Absent: no clubbing or cyanosis (clubbing fingertips) - Routine Skin Exam Present: intact, dry, warm, ecchymosis - Routine Neurological Exam Present: alert, oriented X3 - Routine Psychiatric Exam Present: normal affect, normal thought process, cooperative Hospital Course This is a general summary of the patient's hospital course. For more details refer to the complete medical record. Hospital course: DATE OF ADMISSION: 11/06/16 DATE OF DISCHARGE: 11/23/16 Assessment Sepsis syndrome due to pneumonia - Leukocytosis, Tachycardia, tachypnea. 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 Macrocytic anemia, B12 deficiency Thrombocytopenia Prior lung nodule - obscured effusion on CT at presentation. Multiple subacute rib and thoracic/lumbar vertebral compression fractures Postherpetic neuralgia Presumed osteoporosis Chronic steroid use HTN Hypernatremia (POA) - RESOLVED Hypokalemia (POA) - RESOLVED Thrush Significant pulmonary debility Hospital course Mr. Grider was admitted on 11/06/16 for Acute respiratory failure, and sepsis secondary to community-acquired pneumonia. He was started on azithromycin and Rocephin. Antibiotics were changed to cefepime (11/09-11/10) and then Zosyn (11/10-11/16 ), as sputum culture was positive for Pseudomonas, resistant to cefepime. He was started on IV steroids and nebulized treatments. On admission, he required prolonged high-dose steroid, given severity of disease. He was able to be converted to oral steroids on 11/12/16. He was discharged with Prednisone dose of 40 mg daily, and it's uncertain if he will be able to be weaned down to his pre- hospitalization dose of 30 mg. He developed thrush, which was treated with nystatin until the day of discharge. Through the course of his hospitalization, he was slowly able to tolerate more time off BiPAP during the day, but still required frequent use. After showing very slow improvement, he became worse on , with desaturations, increase in FiO2 to 50%, and worsened leukocytosis. Blood culture was drawn through PICC line, which was negative after 4 days. He again showed slight improvement, but did not return to his baseline functional or respiratory status (which were both quite low to begin with). Dr. Bolton was consulted - severe COPD, end-stage disease. Recommended home patient to mask at night and as needed during the daytime. He went into A. fib with RVR on 11/10/16 and was transferred to the critical care unit. He converted to sinus rhythm after Cardizem. Cardiac workup was obtained, anterior remains stable to be transferred back to the medical unit on 11/11/16. He continued on diltiazem daily for rate control. Minor electrolyte abnormalities throughout hospital course, which were rapidly corrected. Oral intake was poor initially, and he was given IVF for hydration. He required IV diuresis later in hospital course. Elevation in blood pressure, and Norvasc was started on 11/07/16. Losartan was added on 11/11/16. He was started on Clonidine daily as well, but this was not continued at time of discharge. Anemia with vitamin B12 deficiency: He was started on B12 supplementation. For DVT prophylaxis, he received Lovenox, however, his platelet counts dropped and this was discontinued. HIT Ab was negative. Plt 110 on day of discharge. PT, OT consults. Patient had significant pulmonary disability and myopathy, unable to tolerate sitting up on the side of the bed without becoming extremely dyspneic. Advance directives and goals of care: Discussed in depth on multiple days, and hospice was recommended. We consulted Dr. Montero, who reviewed diagnosis, prognosis, and treatment options. After much consideration, the patient and his decided to proceed with hospice care. CODE STATUS was updated to limited code, no chest compressions and no intubation. We were able to secure a home BiPAP/facemask. Settings: Inspiratory pressure 12 cm/H2O; Expiratory pressure 5 cm/H2O, R 12, FiO2 30%. Multiple new medications at discharge, which will be continued at the discretion of hospice. Time spent with patient: discharge greater than 30 minutes GI Prophylaxis: Pepcid Discharge Plan - Med Rec/Dispo Referrals/Follow Up: Rex Montero MD [Physician] - 1 Week Madeleine Instructions: Pneumonia (GEN) Prescriptions: New Albuterol/Ipratropium [Duoneb] 3 ml AEROSOL Q4H PRN #1 box PRN Reason: Shortness Of Air Bisacodyl Supp [Dulcolax] 10 mg RECTALLY DAILY PRN supp PRN Reason: Constipation DiltiaZEM CD [Cardizem Cd] 360 mg PO DAILY #14 cap Gabapentin [Neurontin] 300 mg PO HS #30 cap Guaifenesin/Dm [Mucinex Dm] 1 tab PO BID tab.er.12h Hydrocodone/APAP 5/325 [[place] 5/325] 1 - 2 tab PO Q6H PRN #30 tab PRN Reason: Pain Losartan [Cozaar] 100 mg PO DAILY #14 tab Morphine Sulfate Oral Liq [Roxanol Oral Liq] 5 - 10 mg SL Q2H PRN #10 syringe PRN Reason: Air Hunger Potassium Chloride [K-Dur] 20 meq PO BIDWM #30 tab PredniSONE [Deltasone] 40 mg PO WB #20 tab Acetaminophen [Tylenol] 650 mg PO Q5H PRN tablet PRN Reason: Discomfort Albuterol/Ipratropium [Duoneb] 3 ml AEROSOL RTQID #1 box Budesonide Inhalation [Pulmicort Inhalation] 0.5 mg AEROSOL RTBID #1 box Famotidine [Pepcid] 20 mg PO BID #30 tab LORazepam [Ativan] 0.5 mg PO TID PRN #20 tab PRN Reason: Air Hunger/Anxiety Milk of Magnesia [Mom] 30 ml PO DAILY PRN udc PRN Reason: Constipation Discontinued Mometasone/Formoterol 200/5 [DULERA 200/5mcg INHALER] 2 puff INH BID Hydrocodone/APAP 5/325 [[place] 5/325] 1 - 2 tab PO Q3-6HR PRN PRN Reason: Pain PredniSONE [Deltasone] 30 mg PO WB - Disposition 50 Discharged To Hospice-Home <Samir Smalls - Last Filed: 11/23/16 14:06> Discharge Information Date of admission: 11/06/16 09:46 Attending Physician: Samir Smalls MD Primary care physician: Donavan Rangel MD Consults: 11/07/16 12:35 [Physician Consult] [CONS] Routine Consulting Provider: Keenan Bolton Reason For Exam: Severe COPD - ? End stage--? other meds/treament Ordering Provider has Notified Control Panel Operator Crude Unit: Yes 11/12/16 10:38 Dietary Consult [CONS] Routine Comment: Reason For Exam: 11/15/16 09:13 Case Management Consult [CONS] Routine Reason For Exam: sign DPOA paper - list 11/15/16 09:16 Physician Consult [CONS] Routine Consulting Provider: Rex Montero Reason For Exam: palliative care consult Ordering Provider has Notified Control Panel Operator Crude Unit: Yes - Discharge Diagnosis (1) Pneumonia Status: Resolved (2) Acute on chronic respiratory failure with hypoxia and hypercapnia Status: Acute - Laboratory Labs: 11/21/16 05:31 11/21/16 05:31 - Microbiology Microbiology 11/18/16 16:24 Peripheral/Iv Start Blood Culture - Preliminary No Growth After 4 Days 11/18/16 16:18 Cath/Port/Line/Picc Blood Culture - Preliminary No Growth After 4 Days Objective Vital signs: Temperature 98.8 F 11/23/16 08:41 Pulse Rate 87 11/23/16 08:41 Respiratory Rate 16 11/23/16 11:53 Blood Pressure 183/95 H 11/23/16 08:41 Pulse Oximetry 92 11/23/16 11:53 Height/Weight/BMI: Height 1.73 m Weight 74.7 kg Body Mass Index 25.4 Hospital Course This is a general summary of the patient's hospital course. For more details refer to the complete medical record. Discharge Plan - Med Rec/Dispo - Attestation Attestation Narrative: 11/23/16 14:00 I have independently interviewed and examined pt prior to discharge. Chart reviewed. Case discussed with CM and my [employer]VISOR [employer]. Care plan developed with my supervision; agree with above. Resting in bed. Breathing on nasal canula. Notes is able to be off vent for a couple hours at a time. Breathing about the same. Eating well. No mouth pain. Denies pain with swallowing. Arrangements made for patient to discharge to home with hospice care. Lungs: decrease, little air movement. No distress on NC. CV: regular, distant MSE: awake alert appropriate Plan: Will discharge to home. Hospice to initiate care when patient arrives at home. Will need to transport via nonemergent EMS-with his significant pulmonary debility and respiratory status, no other means of transport feasible. See orders for details.
[2016-11-23 12:05] VITALS: RESP 16; O2SAT 92
[2016-11-23] MEDS: MORPHINE SULFATE 2mg INJECTION IVP PRN (14:04)
== END 2016-11-23 14:45 | disposition hospice, home (50) | DRG 871 ==
LOC: ED 06:46 → MED 09:46 → CCU 11-10 11:37 → MED 11-11 18:52
PROVIDERS: ADMIT Hospitalist; ATTEND Hospitalist